=== PATIENT | male | born 1940 | race Caucasian/White ===

== ENCOUNTER 2016-12-24 08:05 | Inpatient (IN) | payer OTHER, MEDICARE ==
[2016-12-24] VITALS (7 sets, daily range): BP systolic 139–164; BP diastolic 58–115
[~2016-12-24] VITALS: Ht 193 cm; Wt 109.3 kg
[~2016-12-24 08:05] MED LIST: BENICAR20 M1 PO; CRESTOR10 M1 PO; LO-DOSE ASPIRIN81 MG PO; OMEPRAZOLE MAGN20 M1 PO; VITAMIN B-121000 MC3 PO
--- NOTE | 2016-12-24 08:14 | NUR ---
PT STATES HE CALLED 911 TODAY BECAUSE HE WAS UNABLE TO AMBULATE D/T NEUROPATHY
--- NOTE | 2016-12-24 08:14 | NUR ---
PT BIBA FROM HOME WITH C/O WEAKNESS, DIARRHEA AND BLOOD IN URINE. STATES HE RECENTLY STARTED ON A PROBIOTIC AND ANOTHER PILL ? NAME A WEEK AGO AND STARTED WITH THE DIARRHEA AFTER. DENIES BLOODY STOOL OR BLACK STOOL. STATES DIARRHEA IS CLEAR FLUID X 3 DAYS. STATES RECENTLY FELL
--- NOTE | 2016-12-24 08:19 | ED GENERAL ADULT ---
History of Present Illness General Chief Complaint: General Adult Stated Complaint: WEAKNESS Source: patient, old records Exam Limitations: no limitations Vital Signs & Intake/Output Vital Signs & Intake/Output Vital Signs Date Time Temp Pulse Resp B/P B/P Pulse O2 O2 Flow FiO2 Mean Ox Delivery Rate 12/24 1933 Room Air 12/24 1800 98.4 83 20 141/95 05/08 1733 98.4 83 20 141/95 94 Room Air / 1528 98.4 93 16 139/86 05/08 1500 98.8 22 94 Room Air / 1352 98.9 100 18 166/90 85 Room Air 05/ 1315 98.2 85 20 158/76 05/08 1314 98.2 85 20 158/76 97 Room Air / 1123 99.0 89 20 157/115 98 Room Air / 1114 89 20 157/115 05/08 0900 99.0 108 24 139/58 05/08 0842 99.0 108 24 139/58 96 Room Air / 0812 97.2 96 20 107/70 98 Room Air Allergies Coded Allergies: NO KNOWN ALLERGIES (12/31/10) Triage Note: PT BIBA FROM HOME WITH C/O WEAKNESS, DIARRHEA AND BLOOD IN URINE. STATES HE RECENTLY STARTED ON A PROBIOTIC AND ANOTHER PILL ? NAME A WEEK AGO AND STARTED WITH THE DIARRHEA AFTER. DENIES BLOODY STOOL OR BLACK STOOL. STATES DIARRHEA IS CLEAR FLUID X 3 DAYS. STATES RECENTLY FELL Triage Nurses Notes Reviewed? yes Duration: intermittent Timing: recent history Injury Environment: home Severity: severe Severity Numbers: 7 HPI: Patient is a 76-year-old male with a past medical history of hypertension, AUTONOMIC NEUROPATHY, CHRONIC DIZZINESS, atrial fibrillation status post pacemaker placement- NOT ON ANTICOAGULATION, hyperlipidemia, alcohol dependency who is brought in by ambulance for concerns of generalized weakness. Patient has been evaluated in the emergency room on occasions for concerns of dizziness where he states that he gets dizzy every day and noted to have hypotension Patient states that he's had multiple episodes of loose watery diarrhea production for the past 10 days no blood no melena noted. Patient does state that he did begin taking a [id number] probiotic for concerns of constipation Patient has been placed with prescription of Bactrim for concerns of UTI prescribed last 4 days ago. Symptoms of diarrhea and weakness and fatigue has significantly worsened however since the Bactrim had been administered. Patient complains of decreased by mouth intake. It is noted that patient had concerns of symptoms of hematuria hence the urinary tract infection was evaluated. It is noted through old that urine culture showed susceptibility to Bactrim. Patient complains of denies abdominal pain and persistent coughing in the past week Denies any chest pain shortness of breath hemoptysis nausea or vomiting Patient did not take any medications for his diarrhea (ALEJANDRO SPICER) Reconcile Medications Aspirin (Lo-Dose Aspirin EC) 81 MG TABLET.DR 1 TAB PO DAILY HEART HEALTH ( Reported) Cyanocobalamin (Vitamin B-12) 1,000 MCG TABLET 1 TAB PO DAILY SUPPLEMENT ( Reported) Lactobacillus Acidophilus (Probiotic) 10 BILLION CELL CAPSULE 1 CAP PO DAILY GI (Reported) Midodrine HCl 2.5 MG TABLET 1 TAB PO TIDAC PRN LOW BLOOD PRESSURE (Reported) Olmesartan Medoxomil (Benicar) 20 MG TABLET 1 TAB PO DAILY HEART HEALTH ( Reported) Omeprazole Magnesium 20 MG CAPSULE.DR 2 CAP PO BID ACID REFLUX (Reported) Rosuvastatin Calcium (Crestor) 10 MG TABLET 1 TAB PO DAILY HEART HEALTH ( Reported) Sulfamethoxazole/Trimethoprim (Sulfamethoxazole-Tmp Ds Tablet) 800 MG-160 MG TABLET 1 TAB PO BID ANTIBIOTIC, INFECTION (Reported) (YESSICA YEN,HILL) Past History Travel History Traveled to [place] past 21 day No Medical History Any Pertinent Medical History? see below for history Neurological: peripheral neuropathy... walks with braces on both ankles. Cardiovascular: AFIB, hypertension, hyperlipidemia Gastrointestinal: GERD Other Medical Hx: hypertension, atrial fibrillation status post pacemaker placement, hyperlipidemia, alcohol dependency Surgical History Surgical History: non-contributory Psychosocial History Who do you live with Spouse Services at Home None What is your primary language Tanzanian Tobacco Use: Quit >30 days ago ETOH Use: occasional use Illicit Drug Use: denies illicit drug use Family History Hx Contributory? No (ALEJANDRO SPICER) Review of Systems Review of Systems Constitutional: Reports: see HPI, malaise, weakness. EENTM: Reports: no symptoms. Respiratory: Reports: no symptoms. Cardiovascular: Reports: no symptoms. GI: Reports: see HPI, abdominal pain. Genitourinary: Reports: see HPI, hematuria. Musculoskeletal: Reports: no symptoms. Skin: Reports: no symptoms. Neurological/Psychological: Reports: no symptoms. Hematologic/Endocrine: Reports: no symptoms. Immunologic/Allergic: Reports: no symptoms. All Other Systems: Reviewed and Negative (ALEJANDRO SPICER) Physical Exam Physical Exam General Appearance: no apparent distress, alert, comfortable Gastrointestinal: normal bowel sounds, MILD TENDERNESS AND DISTENSION NOTED Rectal: normal rectal tone, heme negative stool, BROWN STOOL Comments: Well-developed well-nourished person in no acute distress HEENT: Normal EENT exam, extraocular motion intact, no nystagmus. Pupils equally round and reactive to light and accommodation. Nose is atraumatic. External auditory canal and Tympanic membranes clear. Pharynx normal. No swelling or edema. Neck: Supple, no lymphadenopathy, normal range of motion without pain or tenderness Back: Nontender, no CVA tenderness. Cardiovascular: Regular rate and rhythms no murmurs rubs or gallops, normal JVP Respiratory: Chest nontender. No respiratory distress.breath sounds clear to auscultation bilaterally Extremity: No edema, no calf tenderness to palpation, normal and equal pulses. Neuro: Alert oriented x3, motor sensory normal, cranial nerves II through XII grossly intact. Skin: No appreciable rash on exposed skin, skin is warm and dry. Psych: Mood and affect is normal, memory and judgment is normal. Core Measures ACS in differential dx? No CVA/TIA Diagnosis: No Severe Sepsis Present: No Septic Shock Present: No (ALEJANDRO SPICER) Progress Differential Diagnoses I considered the following diagnoses in my evaluation of the patient: [Pneumonia , sepsis, pyelonephritis,SBO, electrolyte abnormality, dehydration,C.DIFF] Plan of Care: Orders Procedure Date/time Status [id number] VIEWS 12/25 06 Active MAGNESIUM 12/25 06 Active BASIC ELECTROLYTES PLUS BUN&CR 12/25 06 Active Clear Liquid Diet 12/24 D Active MAGNESIUM 12/25 1999 Complete BASIC ELECTROLYTES PLUS BUN&CR 12/25 1999 Complete C.DIFFICILE 12/24 1532 Active Pathway - chart 12/24 1528 Active Heat/Cold Therapy 12/24 1528 Active Saline Lock 12/24 1441 Active Pathway - chart 12/24 1441 Active House Staff 12/24 1441 Active Patient Data 12/24 1337 Active Admit to inpatient 12/24 1226 Active Vital Signs 12/24 1226 Active Code Status 12/24 1226 Active ETHANOL 12/24 0930 Complete BLOOD CULTURE 12/24 0908 Active CIWA 05/08 0907 Active CULTURE,URINE 12/24 906 Active URINALYSIS 12/24 906 Complete LACTIC ACID 12/24 906 Complete Telemetry/Tobacco Drier Operator 12/24 905 Active CULTURE,STOOL 12/24 905 Active C.DIFFICILE 12/24 905 Active TROPONIN LEVEL 12/24 905 Complete MAGNESIUM 12/24 905 Complete LIPASE 12/24 905 Complete COMPREHENSIVE METABOLIC PANEL 12/24 905 Complete CBC WITHOUT DIFFERENTIAL 12/24 905 Complete AMYLASE 12/24 905 Complete Intake & Output 12/25 835 Active EKG 12/25 823 Active TRC EVALUATION (GEN) 12/24 UNK Active VTE Mechanical Prophylaxis 12/24 UNK Active Nursing Misc 12/24 UNK Active CIWA 12/24 UNK Active Current Medications Sig/Gumaro Start time Last Medication Dose Stop Time Status Admin Aspirin Buffered 81 MG DAILY 12/25 1000 AC (Ecotrin) Folic Acid 1 MG DAILY 12/25 1000 AC (Folic Acid) Heparin Sodium 5,000 UNIT Q8 12/24 2200 AC (Porcine) Trimethoprim/ 1 TAB BID 12/24 2200 AC Sulfamethoxazole (Bactrim DS) Atorvastatin Calcium 40 MG 1700 12/24 1700 AC 12/24 (Lipitor) 2001 Acetaminophen 1,000 MG Q6P PRN 12/24 1530 AC (Ofirmev) Ondansetron HCl 4 MG Q6P PRN 12/24 1530 AC (Zofran) Lorazepam 0 Q1P PRN 12/24 1445 AC (Ativan) Midodrine 2.5 MG TIDAC PRN 12/24 1445 AC (Pro-Amatine) Sodium Chloride 1,000 ML Q10H 12/24 1445 AC 12/24 (Normal Saline 0.9%) 12/25 0044 1456 Multivitamins 1 TAB DAILY 12/24 1441 AC 12/24 (Theragran Vitamins) 1456 Thiamine HCl 100 MG DAILY 12/24 1441 AC 12/24 (Vitamin B1) 1456 Laboratory Tests 12/24/16 1955: Anion Gap 8, Estimated GFR 59 L, BUN/Creatinine Ratio 28.3 H, Magnesium 1.9 12/24/16 1207: Lactic Acid Cancelled 12/24/16 1112: Urine Color YEL, Urine Clarity CLEAR, Urine pH 6.0, Ur Specific [place] >= 1.030 , Urine Protein 30 H, Urine Ketones NEG, Urine Nitrite NEG, Urine Bilirubin NEG , Urine Urobilinogen 1.0, Ur Leukocyte Esterase SMALL H, Ur Microscopic SEDIMENT EXAMINED, Urine RBC 50-75 H, Urine WBC 15-25 H, Ur Epithelial Cells RARE, Urine Bacteria FEW H, Hyaline Casts 1-3 H, Urine Mucus MANY H, Urine Hemoglobin MOD H, Urine Glucose NEG 12/24/16 0930: Lactic Acid 0.7 12/24/16 0930: Anion Gap 12, Estimated GFR 54 L, BUN/Creatinine Ratio 30.0 H, Glucose 101 H, Calcium 9.0, Magnesium 1.9, Total Bilirubin 0.7, AST 18, ALT 39, Alkaline Phosphatase 75, Troponin I 0.06, Total Protein 6.5, Albumin 3.5, Globulin 3.0, Albumin/Globulin Ratio 1.2, Amylase 49, Lipase 103, CBC w Diff NO MAN DIFF REQ, RBC 4.22 L, MCV 96.3 H, MCH 31.5 H, RDW 13.8, MPV 7.5, Gran % 77.3 H, Lymphocytes % 12.3 L, Monocytes % 8.9, Eosinophils % 0.9, Basophils % 0.6, Absolute Granulocytes 6.0, Absolute Lymphocytes 1.0 L, Absolute Monocytes 0.7 H, Absolute Eosinophils 0.1, Absolute Basophils 0, PUBS MCHC 32.8 L, Serum Alcohol < 10.0 Microbiology 12/24 1532 STOOL: Clostridium difficile Toxin A & B - COLB 12/24 1112 URINE ROUT: Urine Culture - RECD 12/24 1042 BLOOD: Blood Culture - RECD 12/24 09 BLOOD: Blood Culture - RECD 12/24 905 STOOL: Clostridium difficile Toxin A & B - ORD 12/24 905 STOOL: Stool Culture - ORD Patient currently is resting comfortably no apparent distress. Patient does have concerns of abdominal distention and tenderness and was CT scan showed significant COLON Distention. Surgery was paged. Discussed admission with Dr. LAZO who agrees Discussed patient with Iron Brooks MD which she is aware of admission however he does not express to me any concerns of small bowel obstruction from history of present illness and CT scan evaluation. Discussed admission with house staff STATE THEY WILL OBTAIN GI consult no EKG changes for hypokalemia (MELITON CARPENTER,ALEJANDRO) Diagnostic Imaging: Viewed by Me: CT Scan. Radiology Impression: acute abnormality Initial ED EK BPM MULTIPLE ARTIFACT NOTED ATRIAL FIBRILLATION Comments: PATIENT: YOSSI PERERA PRESENT AGE: 76 PATIENT ACCOUNT NO: [id number] : 39 LOCATION: [facility] ORDERING PHYSICIAN: ALEJANDRO CARPENTER SERVICE DATE: 12/24/16 EXAM TYPE: CAT - CT ABD & PELVIS W/O IV CONTRAS; CT CHEST WO IV CONTRAST EXAMINATION: CT CHEST, ABDOMEN AND PELVIS WITHOUT CONTRAST CLINICAL INFORMATION: Cough and weakness. COMPARISON: Chest radiograph dated 08/12/2009; CT thorax dated 06/06/2009. TECHNIQUE: Multidetector volumetric imaging was performed through the chest, abdomen and pelvis without the administration of oral or intravenous contrast. Sagittal and coronal reformatted images were obtained on the technologist's workstation. Axial MIP volume rendering provided. DLP: 1299.97 mGy-cm. FINDINGS: CHEST: Reverberatory Furnace Operator: The lungs are grossly clear. There are numerous dilated abdominal and pelvic bowel loops. Lungs: There are a few bilateral scattered benign, calcified granulomas. No mass is seen. There is no focal infiltrate or groundglass opacity. There are minimal emphysematous changes towards the apices. There is mild linear scar/subsegmental atelectasis in the anteromedial basal segment of the left lower lobe. The central airways appear patent. Mediastinum: No sizable mediastinal or hilar adenopathy is seen. There is mild aneurysmal dilatation of the ascending thoracic aorta, which measures 4.5 x 4.6 cm (3:30). There is moderate atherosclerotic change of the thoracic aorta and coronary arteries. A pacemaker device is noted. Pericardium/Pleura: There is no significant effusion. No pleural mass or thickening. Chest Wall/Axilla: Unremarkable. ABDOMEN/PELVIS: Liver, Gallbladder, Biliary Tree: The liver is normal in size, shape, and attenuation. No focal hepatic lesion or biliary ductal dilatation is present. The gallbladder is unremarkable with no evidence of radiopaque gallstones, gallbladder wall thickening, or pericholecystic inflammatory changes. Pancreas: Unremarkable. Spleen: Unremarkable. Adrenal Glands: The right adrenal gland is unremarkable. The left adrenal gland contains a 1.7 cm benign, fat-containing adenoma of Hounsfield value 1.5 units precontrast (3:53). Kidneys and Ureters: The kidneys are normal in size, shape, and attenuation. A prominent right renal parapelvic cyst is again seen, similar to 06/06/2009 (2:68). There is superimposed mild right hydronephrosis. At the upper pole of the right kidney, a nonobstructing 3 mm calculus is seen. At the lower pole of the right kidney, there are 7 mm and 7 mm nonobstructing calculi. Within the right renal pelvis anteriorly (3:63), a 1.1 cm calculus is seen. There is no right ureteric calculus. No left urinary calculus or hydronephroureter is seen. At the lower pole of the left kidney, a 1.0 cm low-attenuation cyst is seen of Hounsfield 6.6 units (3:69) No perinephric stranding. Bladder: Unremarkable. Gastrointestinal Tract: There are multiple dilated colonic loops. No pathologic dilatation of small bowel loops is seen. There is gas and stool identified throughout the colon to the level of the sigmoid colon (3:98). There is mild sigmoid colon wall thickening and adjacent fat stranding. No free intraperitoneal air or abscess is seen. No diverticulosis is seen. The vermiform appendix appears normal. Abdominal Wall: There is a diastases rectus. There are tiny fat-containing umbilical and bilateral inguinal hernias. Lymphovascular Structures: Lymph nodes: Normal. Vascular: There is moderate aortoiliac and mesenteric atherosclerotic change. No abdominal aortic aneurysm is seen. Pelvic Viscera: The prostate and seminal vesicles are unremarkable. OSSEOUS STRUCTURES: There is multi-level marked thoracolumbar degenerative change, with an appearance suggesting possible DISH (diffuse idiopathic skeletal hyperostosis). No acute or aggressive osseous abnormality is seen. IMPRESSION: 1. There is significant colonic distention with gas and stool, with possible transition point at the sigmoid. Underlying mucosal lesion is not excluded. This could be more fully evaluated with a barium enema, if clinically indicated. Underlying diverticulitis is not seen. There is no associated pathologic small bowel dilatation, suggesting a competent ileocecal valve. No free intraperitoneal air or abscess is seen. 2. There is mild hydronephrosis superimposed upon a chronic right extrarenal pelvis. There are right renal calculi, and an 11 mm calculus is seen within the right renal pelvis. No right ureterectasis is seen. 3. No left renal calculus or hydronephroureter is seen. 4. A small benign, fat-containing left adrenal adenoma is incidentally noted. 5. There is borderline aneurysmal dilatation of the ascending thoracic aorta. 6. There are minimal emphysematous changes. 7. Skeletal findings suggest possible DISH. DICTATED BY: YOSSI ALVAREZ MD DATE/TIME DICTATED:12/24/161037 CUTTING MACHINE FIXER:CLEMENTINA DATE/TIME TRANSCRIBED:12/24/161037 (ALEJANDRO SPICER) Departure Departure Disposition: STILL A PATIENT Condition: Stable Clinical Impression Primary Impression: Colon distention Secondary Impressions: MARIYA (acute kidney injury), Dehydration, Diarrhea, Hypokalemia, Weakness Referrals: MAKENZIE CLEVELAND MD (PCP/Family) Departure Forms: Customer Survey General Discharge Information Admission Note Spoke With: IFRAH LAZO MD Documentation of Exam: Documentation of any treatments & extenuating circumstances including Concerns Regarding Discharge (functional status, medication knowledge or non-compliance, living conditions, etc.) that warrant an admission rather than observation: [ Discussed patient with Dr. LAZO who agrees with general medicine admission for concerns of a KI hypokalemia and dehydration weakness dehydration and concerns of colonic distention. Patient requires IV fluid resuscitation, repeat labs, potassium replenishment, surgery consultation. Outpatient treatment at this time would be medically harmful] (ALEJANDRO SPICER) PA/CLIENT EVALUATOR Co-Sign Statement Statement: ED Attending supervision documentation- [X] I saw and evaluated the patient. I have also reviewed all the pertinent lab results and diagnostic results. I agree with the findings and the plan of care as documented in the PA's/CLIENT EVALUATOR's documentation. [X] I have reviewed the ED Record and agree with the PA's/CLIENT EVALUATOR's documentation. [] Additions or exceptions (if any) to the PAs/CLIENT EVALUATOR's note and plan are summarized below: [] (YESSICA YEN,HILL) Critical Care Note Critical Care Note Critical Care Time: non-applicable (ALEJANDRO SPICER)
[2016-12-24 09:37] LABS: ABSOLUTE BASOPHIL COUNT 0 /CUMM (0.0-0.2); ABSOLUTE EOSINOPHIL COUNT 0.1 /CUMM (0.0-0.7); ABSOLUTE MONOCYTE COUNT 0.7 /CUMM (0.10-0.60); BASOPHIL % 0.6 % (0.0-2.0); EOSINOPHIL % 0.9 % (0-5); GRANULOCYTE % 77.3 % (42.2-75.2); HEMATOCRIT 40.7 % (42-52); MEAN CORPUSCULAR HGB 31.5 PG (27.0-31.0); MEAN CORPUSCULAR HGB CONC 32.8 G/DL (33.0-37.0); MEAN CORPUSCULAR VOLUME 96.3 FL (80.0-94.0); MEAN PLATELET VOLUME 7.5 FL (7.4-10.4); PLATELET COUNT 147 /CUMM (130-400); RBC DISTRIBUTION WIDTH 13.8 % (11.5-14.5); RED BLOOD CELL CT 4.22 /CUMM (4.70-6.10); WHITE BLOOD CELL COUNT 7.8 /CUMM (4.8-10.8)
[2016-12-24] MEDS ORDERED: SULFAMETHOXAZO1 EAC1 PO (09:45)
[2016-12-24] MEDS ORDERED: PROBIOTIC1 EACH PO (09:45)
--- NOTE | 2016-12-24 09:57 | NUR ---
NS INFUSING, PT TO CT SCAN. OF PT AT BEDSIDE
--- NOTE | 2016-12-24 10:27 | NUR ---
PT MEDICATED WITH 40 MEQ k+ PO
--- NOTE | 2016-12-24 11:05 | CT SCAN REPORT ---
EXAMINATION: CT CHEST, ABDOMEN AND PELVIS WITHOUT CONTRAST CLINICAL INFORMATION: Cough and weakness. COMPARISON: Chest radiograph dated 08/12/2009; CT thorax dated 06/06/2009. TECHNIQUE: Multidetector volumetric imaging was performed through the chest, abdomen and pelvis without the administration of oral or intravenous contrast. Sagittal and coronal reformatted images were obtained on the technologist's workstation. Axial MIP volume rendering provided. DLP: 1299.97 mGy-cm. FINDINGS: CHEST: Heating Worker: The lungs are grossly clear. There are numerous dilated abdominal and pelvic bowel loops. Lungs: There are a few bilateral scattered benign, calcified granulomas. No mass is seen. There is no focal infiltrate or groundglass opacity. There are minimal emphysematous changes towards the apices. There is mild linear scar/subsegmental atelectasis in the anteromedial basal segment of the left lower lobe. The central airways appear patent. Mediastinum: No sizable mediastinal or hilar adenopathy is seen. There is mild aneurysmal dilatation of the ascending thoracic aorta, which measures 4.5 x 4.6 cm (3:30). There is moderate atherosclerotic change of the thoracic aorta and coronary arteries. A pacemaker device is noted. Pericardium/Pleura: There is no significant effusion. No pleural mass or thickening. Chest Wall/Axilla: Unremarkable. ABDOMEN/PELVIS: Liver, Gallbladder, Biliary Tree: The liver is normal in size, shape, and attenuation. No focal hepatic lesion or biliary ductal dilatation is present. The gallbladder is unremarkable with no evidence of radiopaque gallstones, gallbladder wall thickening, or pericholecystic inflammatory changes. Pancreas: Unremarkable. Spleen: Unremarkable. Adrenal Glands: The right adrenal gland is unremarkable. The left adrenal gland contains a 1.7 cm benign, fat-containing adenoma of Hounsfield value 1.5 units precontrast (3:53). Kidneys and Ureters: The kidneys are normal in size, shape, and attenuation. A prominent right renal parapelvic cyst is again seen, similar to 06/06/2009 (2:68). There is superimposed mild right hydronephrosis. At the upper pole of the right kidney, a nonobstructing 3 mm calculus is seen. At the lower pole of the right kidney, there are 7 mm and 7 mm nonobstructing calculi. Within the right renal pelvis anteriorly (3:63), a 1.1 cm calculus is seen. There is no right ureteric calculus. No left urinary calculus or hydronephroureter is seen. At the lower pole of the left kidney, a 1.0 cm low-attenuation cyst is seen of Hounsfield 6.6 units (3:69) No perinephric stranding. Bladder: Unremarkable. Gastrointestinal Tract: There are multiple dilated colonic loops. No pathologic dilatation of small bowel loops is seen. There is gas and stool identified throughout the colon to the level of the sigmoid colon (3:98). There is mild sigmoid colon wall thickening and adjacent fat stranding. No free intraperitoneal air or abscess is seen. No diverticulosis is seen. The vermiform appendix appears normal. Abdominal Wall: There is a diastases rectus. There are tiny fat-containing umbilical and bilateral inguinal hernias. Lymphovascular Structures: Lymph nodes: Normal. Vascular: There is moderate aortoiliac and mesenteric atherosclerotic change. No abdominal aortic aneurysm is seen. Pelvic Viscera: The prostate and seminal vesicles are unremarkable. OSSEOUS STRUCTURES: There is multi-level marked thoracolumbar degenerative change, with an appearance suggesting possible DISH (diffuse idiopathic skeletal hyperostosis). No acute or aggressive osseous abnormality is seen. IMPRESSION: 1. There is significant colonic distention with gas and stool, with possible transition point at the sigmoid. Underlying mucosal lesion is not excluded. This could be more fully evaluated with a barium enema, if clinically indicated. Underlying diverticulitis is not seen. There is no associated pathologic small bowel dilatation, suggesting a competent ileocecal valve. No free intraperitoneal air or abscess is seen. 2. There is mild hydronephrosis superimposed upon a chronic right extrarenal pelvis. There are right renal calculi, and an 11 mm calculus is seen within the right renal pelvis. No right ureterectasis is seen. 3. No left renal calculus or hydronephroureter is seen. 4. A small benign, fat-containing left adrenal adenoma is incidentally noted. 5. There is borderline aneurysmal dilatation of the ascending thoracic aorta. 6. There are minimal emphysematous changes. 7. Skeletal findings suggest possible DISH.
--- NOTE | 2016-12-24 11:15 | NUR ---
PT PLACED ON HOSPITAL BED D/T HEIGHT OF PT
--- NOTE | 2016-12-24 12:23 | NUR ---
PT MEDICATED DOCUMENTED IN [facility]
[2016-12-24] MEDS ORDERED: MIDODRINE HCL2.5 M1 PO (14:36)
--- NOTE | 2016-12-24 14:52 | History & Physical ---
JOHN DUQUE MD 12/24/16 8372: General Information and HPI History of Present Illness: 76 year old man with significant past medical history of autonomic neuropathy seen for evaluation of diarrhea, bloating, cough, and urinary symptoms. Patient reports that since December 17 he has had profuse watery/mucous diarrhea that has slowly progressed to dark brown loose stools. He notes that these episodes are small volume and occasionally result in fecal incontinence. He denies having ever had any bloody bowel movements. He reports that he is normally constipated at baseline for which he started taking a probiotic 10 days prior to evaluation. He saw his PCP Dr. Gonzalez this past for evaluation of these symptoms in addition to urinary pain/burning/incontinence/bloody urine and nonproductive cough. He was prescribed a course of Bactrim and instructed to take over the counter cough suppressants. Presenty he reports feeling dizzy and weak with a persistent nonproductive cough and associated shortness of breath with his coughing episodes. He admits feeling feverish at home. He also admits to persistent urinary symptoms and abdominal discomfort/diarrhea. Otherwise he denies any blurred/double vision, worsening lightheadedness/ dizziness, headache, chills, chest pain, palpitations, nausea, numbness/ tingling. PMHx - Autonomic Neuropathy, Atrial Fibrillation s/p Pacemaker not on anticoagulation, EtOH Dependence, Hypertension, Hyperlipidemia, GERD Social Hx - Patient quit smoking January 18, 1995 and smoked 2ppd since he was in grade school, he drinks 2 vodka drinks per day with occasional shots, he lives at home with his and ambulates with assistance of a walker for short distances Allergies/Medications Allergies: Coded Allergies: NO KNOWN ALLERGIES (12/31/10) Home Med list Aspirin (Lo-Dose Aspirin EC) 81 MG TABLET.DR 1 TAB PO DAILY HEART HEALTH ( Reported) Cyanocobalamin (Vitamin B-12) 1,000 MCG TABLET 1 TAB PO DAILY SUPPLEMENT ( Reported) Lactobacillus Acidophilus (Probiotic) 10 BILLION CELL CAPSULE 1 CAP PO DAILY GI (Reported) Midodrine HCl 2.5 MG TABLET 1 TAB PO TIDAC PRN LOW BLOOD PRESSURE (Reported) Olmesartan Medoxomil (Benicar) 20 MG TABLET 1 TAB PO DAILY HEART HEALTH ( Reported) Omeprazole Magnesium 20 MG CAPSULE.DR 2 CAP PO BID ACID REFLUX (Reported) Rosuvastatin Calcium (Crestor) 10 MG TABLET 1 TAB PO DAILY HEART HEALTH ( Reported) Sulfamethoxazole/Trimethoprim (Sulfamethoxazole-Tmp Ds Tablet) 800 MG-160 MG TABLET 1 TAB PO BID ANTIBIOTIC, INFECTION (Reported) Past History Travel History Traveled to [place] past 21 day No Medical History Neurological: peripheral neuropathy... walks with braces on both ankles. Cardiovascular: AFIB, hypertension, hyperlipidemia Gastrointestinal: GERD Other Medical Hx: hypertension, atrial fibrillation status post pacemaker placement, hyperlipidemia, alcohol dependency Surgical History Surgical History: non-contributory Past Family/Social History Psychosocial History Where do you live? Home Who Do You Live With? spouse Services at Home: None Smoking Status: Former Smoker ETOH Use: heavy use Illicit Drug Use: denies illicit drug use Review of Systems Review of Systems Constitutional: Reports: see HPI. Exam & Diagnostic Data Last 24 Hrs of Vital Signs/I&O Vital Signs Date Time Temp Pulse Resp B/P B/P Pulse O2 O2 Flow FiO2 Mean Ox Delivery Rate 12/24 1500 98.8 22 94 Room Air 12/24 1352 98.9 100 18 166/90 85 Room Air / 1315 98.2 85 20 158/76 05/08 1314 98.2 85 20 158/76 97 Room Air / 1123 99.0 89 20 157/115 98 Room Air /08 1114 89 20 157/115 05/08 0900 99.0 108 24 139/58 05/08 0842 99.0 108 24 139/58 96 Room Air 05/08 0812 97.2 96 20 107/70 98 Room Air Intake & Output / 1600 05/08 0800 05/08 0000 Intake Total Output Total 350 Balance -350 Output, Urine 350 Patient 108.862 kg Weight Physical Exam General Appearance Alert, Oriented X3, Cooperative, No Acute Distress HEENT Atraumatic, PERRLA, EOMI, Bloody teeth Neck Supple Cardiovascular Normal S1, Normal S2, No Murmurs, Irregular rhythm Lungs Clear to Auscultation, Normal Air Movement Abdomen Normal Bowel Sounds, No Hepatospenomegaly, Tense, distended, mildly tender abdomen, bowel sounds intact, no CVA tenderness Neurological Normal Speech, Normal Tone, Cranial Nerves 3-12 NL Extremities No Clubbing, No Cyanosis, No Edema, Normal Pulses, No Tenderness/ Swelling Vascular Normal Pulses, Pulses Symmetrical Last 24 Hrs of Labs/Milton: Laboratory Tests 12/24/16 1207: Lactic Acid Cancelled 12/24/16 111: Urine Color YEL, Urine Clarity CLEAR, Urine pH 6.0, Ur Specific Alpine >= 1.030 , Urine Protein 30 H, Urine Ketones NEG, Urine Nitrite NEG, Urine Bilirubin NEG , Urine Urobilinogen 1.0, Ur Leukocyte Esterase SMALL H, Ur Microscopic SEDIMENT EXAMINED, Urine RBC 50-75 H, Urine WBC 15-25 H, Ur Epithelial Cells RARE, Urine Bacteria FEW H, Hyaline Casts 1-3 H, Urine Mucus MANY H, Urine Hemoglobin MOD H, Urine Glucose NEG 12/24/16929: Lactic Acid 0.7 12/24/16929: Anion Gap 12, Estimated GFR 54 L, BUN/Creatinine Ratio 30.0 H, Glucose 101 H, Calcium 9.0, Magnesium 1.9, Total Bilirubin 0.7, AST 18, ALT 39, Alkaline Phosphatase 75, Troponin I 0.06, Total Protein 6.5, Albumin 3.5, Globulin 3.0, Albumin/Globulin Ratio 1.2, Amylase 49, Lipase 103, CBC w Diff NO MAN DIFF REQ, RBC 4.22 L, MCV 96.3 H, MCH 31.5 H, RDW 13.8, MPV 7.5, Gran % 77.3 H, Lymphocytes % 12.3 L, Monocytes % 8.9, Eosinophils % 0.9, Basophils % 0.6, Absolute Granulocytes 6.0, Absolute Lymphocytes 1.0 L, Absolute Monocytes 0.7 H, Absolute Eosinophils 0.1, Absolute Basophils 0, PUBS MCHC 32.8 L, Serum Alcohol < 10.0 Microbiology 12/25 1111 URINE ROUT: Urine Culture - RECD 12/24 104 BLOOD: Blood Culture - RECD 12/24 924 BLOOD: Blood Culture - RECD 12/24 905 STOOL: Clostridium difficile Toxin A & B - ORD 12/24 905 STOOL: Stool Culture - ORD Diagnostic Data Other Results SERVICE DATE: 12/24/16-929 EXAM TYPE: CAT - CT ABD & PELVIS W/O IV CONTRAS; CT CHEST WO IV CONTRAST IMPRESSION: 1. There is significant colonic distention with gas and stool, with possible transition point at the sigmoid. Underlying mucosal lesion is not excluded. This could be more fully evaluated with a barium enema, if clinically indicated. Underlying diverticulitis is not seen. There is no associated pathologic small bowel dilatation, suggesting a competent ileocecal valve. No free intraperitoneal air or abscess is seen. 2. There is mild hydronephrosis superimposed upon a chronic right extrarenal pelvis. There are right renal calculi, and an 11 mm calculus is seen within the right renal pelvis. No right ureterectasis is seen. 3. No left renal calculus or hydronephroureter is seen. 4. A small benign, fat-containing left adrenal adenoma is incidentally noted. 5. There is borderline aneurysmal dilatation of the ascending thoracic aorta. 6. There are minimal emphysematous changes. 7. Skeletal findings suggest possible DISH. Assessment/Plan Assessment: 76 year old man with multiple medical problems seen for evaluation of diarrhea, urinary frequency/urgency/burning/hematuria and new non productive cough. Patient is reportedly normally constipated at baseline for which he started a probiotic and subsequently developed a profuse watery diarrhea. He was identified to have a urinary tract infection by his PCP for which he was provided Bactrim. Otherwise he also admits to a cough of unclear signficance, but is of great distress to the patient. ED Course: -Vitals: Temp 97.2-99.0, HR 85-108, RR 20-24, BP 107-158/58-115, O2 96-98 -Significant Labs: WBC 7.8, Hgb/Hct 13.3/40.7, Plt 147, Na 144, K 2.9, BUN/Cr 39 /1.3, LFTs WNL, Troponin 0.06 -Studies: CT Chest/Abdomen/Pelvis- colon distention with gas/stool, mild right sided hydro, fat containing left adrenal adenoma Constipation / Diarrhea / Autonomic Neuropathy Patient with history of autonomic neuropathy followed by neurologist Dr. Cali and baseline constipation seen for evaluation of profuse watery diarrhea. -General Medicine -Clear Liquid Diet -NS @ 100mL/hr -Zofran -GI consult -F/U Stool culture, C. Diff History of Atrial Fibrillation s/p Pacemaker EKG demonstrated Atrial Fibrillation upon initial evaluation. Patient of Dr. Deep Snell. -Aspirin 81mg PO Daily Urinary Tract Infection Patient was recently treated for urinary tract infection by his PCP this past with Bactrim. He received an additional dose of Bactrim in the ED for a positive urinalysis. -Bactrim DS 1 TAB PO BID EtOH Dependence Patient admits to drinking 1-2 vodka drinks with shots daily. -CIWA -Ativan PRN per CIWA -B12/Thiamine/Folate/MV Hypertension-Benicar on hold Hyperlipidemia-Atorvastatin 40mg PO Daily GERD-Omeprazole on hold Pain Plan-Acetaminophen Diet-Clear Liquid Diet DVT PPx- Subcutaneous Heparin Code Status- FULL CODE As Ranked By This Provider Problem List: 1. Diarrhea Core Measures/Miscellaneous Acute Coronary Syndrome ACS Diagnosis: No Cerebrovascular Accident CVA/TIA Diagnosis: No Congestive Heart Failure CHF Diagnosis: No Venous Thromboembolism VTE Risk Factors: Acute medical illness, Age > 40 No [facility] VTE prophylaxis d/t: No contraindications No VTE Pharm Prophylaxis d/t: No contraindications VTE Diagnosis: No VTE Type: NONE VTE Confirmed by (Test): NONE Severe Sepsis Severe Sepsis Present: No Septic Shock Septic Shock Present: No Miscellaneous Documentation Attending Case Discussed With: SHREYAS RIVAS M.D Primary Care Physician: CRISTOFER YENMAKENZIE Patient sees these Specialists Dr. Channing Cali Level of Patient Care: General Medicine Consults Needed: Consulting Specialty: Gastroenterology ALBINO YEN,[facility] 12/24/16 1529: Resident Review Statement Resident Statement: examined this patient, discussed with commercial internship, agreed with commercial internship, discussed with family, reviewed EMR data (avail), discussed with nursing , discussed with case mgmt, reviewed images, amended to note Other Findings: Adolfo is a 76-year-old man with a medical history of autonomic dysfunction, peripheral neuropathy, atrial fibrillation (not on anticoagulation) w/PPM, hypertension, dyslipidemia, GERD, alcohol abuse, multiple episodes of pneumonia, coccygeal decubitus ulcer in the past, leading bone lesions to the ribs, left adrenal nodule of 1.7 cm. Presents emergency department with chief complaint diarrhea. Patient began taking probiotics proximally 10 days ago for constipation, now he's had diarrhea for approximately 8 days denies blood melena. Additionally was diagnosed with a urinary tract infection on she's with Bactrim, today is day 5 of antibiotics. There is significant colonic distention with gas and stool, with possible transition point at the sigmoid. Underlying mucosal lesion is not excluded. This could be more fully evaluated with a barium enema, if clinically indicated. Underlying diverticulitis is not seen. There is no associated pathologic small bowel dilatation, suggesting a competent ileocecal valve. No free intraperitoneal air or abscess is seen. There is mild hydronephrosis superimposed upon a chronic right extrarenal pelvis. There are right renal calculi, and an 11 mm calculus is seen within the right renal pelvis. No right ureterectasis is seen. No left renal calculus or hydronephroureter is seen. A small benign, fat-containing left adrenal adenoma is incidentally noted. There is borderline aneurysmal dilatation of the ascending thoracic aorta. There are minimal emphysematous changes. Skeletal findings suggest possible DISH. The patient is being admitted for significant colonic distention with gas and stool secondary to constipation perhaps due to underlying autonomic nervous system dysfunction. There is no signs of obstruction, given the patient is able to pass flatus and liquid stool. Additionally, this patient drinks daily. Hard liquor. However in recent days he said he tried to wean himself off. No history of withdrawal or withdrawal-related seizures. - Problems - Constipation and fecal impaction ANS dysfunction MARIYA Hypokalemia UTI Peripheral neuropathy ETOH abuse Afib w/ ?PPM Hypertension Dyslipidemia L. Adrenal adenoma ? Possible DISH - Plan - Clear liquid diet as tolerated Gi consultation NS @ 100c/hr x L Supportive tx w/ zofran, tylenol 1g iv q6-8 prn Replete electrolytes Cont. midodrine pre-mail Consider Cardiology evaluation Continue Bactrim DS bid for total 7 days course Repeat BMP Mg in am Ativan per CIWA, B12/folate/thiamine/MVI Hold Benicar while mariya Continue statin DVT PPX ALPS,Heparin FULL code ROB YEN,SHREYAS 12/24/16 2225: Attending MD Review Statement Attending Statement Attending MD Statement: examined this patient, discuss w/resident/PA/AGER TENDER, agreed w/resident/PA/AGER TENDER, discussed with family, reviewed EMR data (avail), discussed with nursing, amended to note Attending Assessment/Plan: Patient seen and examined. Resting comfortably not in any acute distress. Family present at bedside. He is afebrile hemodynamically stable. On examination lungs are clear bilaterally. Abdomen is markedly distended but soft and nontender with normal bowel sounds. He has trace peripheral edema. Recommendations: -Admit to the inpatient general medical service. -Supplement potassium levels orally and repeat levels. -Case discussed with the gastroenterology service. Rectal tube placement for bowel decompression.
--- NOTE | 2016-12-24 15:40 | NUR ---
PT NOTED TO BE INCONTINENT OF STOOL. STEPHEN-CARE GIVEN AND INCONTINENT PAD CHANGED. PT DENIES PAIN AT THSI TIME, OFFERS NO COMPLAINTS, VSS.
--- NOTE | 2016-12-24 16:49 | Event Note ---
Event Note Event Note: Discussed case over telephonic conversation with Dr. Kike Wu who advised insertion of rectal tube, flush, and then suction tonight; followed by repeating multiview abdominal XR tomorrow. Plan of Care has been discussed with BRITANY Guthrie - the nurse taking care of the patient in the ER, as well as Cortes the charge nurse on 2N.
--- NOTE | 2016-12-24 17:30 | NUR ---
repositioned for comfort
--- NOTE | 2016-12-24 17:47 | NUR ---
THIS RN SPOKE WITH MD MACKEY WHO WWANTS RECTAL TUBE INSERTED AND HOOKED UP TO INTERMITTENT SUCTION OVERNIGHT.
--- NOTE | 2016-12-24 18:03 | NUR ---
md whatley to come to dept to dio pt's questions regarding rectal tube
--- NOTE | 2016-12-24 18:20 | NUR ---
MD STEVENSONG AT BEDSIDE TO DISCUSS RECTAL TUBE PLACEMENT
--- NOTE | 2016-12-24 19:36 | NUR ---
PT BED ASSIGNMENT 235-2
--- NOTE | 2016-12-24 19:46 | NUR ---
REPORT TO NGUYEN GARG
--- NOTE | 2016-12-24 19:58 | NUR ---
SST SENT TO LAB
--- NOTE | 2016-12-24 20:02 | NUR ---
CRISSYRN ON 2NA SPOKE WITH DIRECTOR OF MARKETING AND PROMOTIONS ROB ON 2NA. RECTAL TUBE TO BE INSERTED WHEN PT GETS TO FLOOR.
[2016-12-25] VITALS: BP 164/90
[2016-12-25 02:00] VITALS: BP 164/90
--- NOTE | 2016-12-25 03:19 | NUR ---
LATE ENTRY: PT ARRIVED TO FLOOR AT 2039 VIA STRETCHER. PT A/C, RA, NONPRODUCTIVE COUGH, RECTAL TUBE PLACED TO GRAVITY, THEN SUCTION MACHINE ARRIVED TO FLOOR AND WAS HOOKED UP TO LOW SUCTION. PT DENIES PAIN. OFFERS NO COMPLAINTS. WILL MONITOR.
[2016-12-25 04:00] VITALS: BP 164/90
[2016-12-25 06:00] VITALS: BP 164/90
--- NOTE | 2016-12-25 06:51 | PN- Housestaff ---
JESSICA YEN,BHAVESH 12/25/16 0651: Subjective Follow-up For: Chronic constipation secondary to autonomic neuropathy Subjective: I saw and examined the patient today morning at bedside and she had many concerns Overnight patient reports difficulty slepping due to excessive cough. The rectal suction placed didnt help much. Patients is concerned about previous experience of having ulcers an erosions in the rectal mucosa secondary to suction - resulted in lenghthy recovery. also had questions regarding holding olmesartan. All her questions are answered at bedside. Review of Systems Constitutional: Reports: see HPI. Comments: ROS negative except abdominal pain. Objective Last 24 Hrs of Vital Signs/I&O Vital Signs Date Time Temp Pulse Resp B/P B/P Pulse O2 O2 Flow FiO2 Mean Ox Delivery Rate 12/25 0600 98.1 94 18 164/90 / 0400 98.1 94 18 164/90 / 0200 98.1 94 18 164/90 /09 0000 98.1 94 18 164/90 05/08 2251 98.1 94 22 164/90 94 Room Air 05/08 2200 98.1 94 18 164/90 05/08 1933 Room Air 05/08 1800 98.4 83 20 141/95 05/08 1733 98.4 83 20 141/95 94 Room Air 05/08 1528 98.4 93 16 139/86 05/08 1500 98.8 22 94 Room Air 05/08 1352 98.9 100 18 166/90 85 Room Air 05/08 1315 98.2 85 20 158/76 05/08 1314 98.2 85 20 158/76 97 Room Air 05/08 1123 99.0 89 20 157/115 98 Room Air 05/08 1114 89 20 157/115 05/08 0900 99.0 108 24 139/58 05/08 0842 99.0 108 24 139/58 96 Room Air 05/08 0812 97.2 96 20 107/70 98 Room Air Intake & Output / 0800 05/09 0000 05/08 1600 Intake Total 100 50 Output Total 200 100 350 Balance -100 -50 -350 Intake, IV 100 Intake, Oral 50 Output, Urine 200 100 350 Patient 109.769 kg 108.862 kg Weight Weight Reported by Patient Measurement Method Physical Exam General Appearance: Alert, Oriented X3, Cooperative Skin: No Rashes HEENT: Atraumatic, PERRLA Neck: Supple Cardiovascular: Normal S1, Normal S2 Lungs: Normal Air Movement Abdomen: Normal Bowel Sounds, distended Neurological: Normal Speech, Normal Tone, Sensation Intact Extremities: No Clubbing, No Cyanosis, edema present Vascular: Pulses Symmetrical Current Medications: Current Medications Sig/Gumaro Start time Last Medication Dose Route Stop Time Status Admin Acetaminophen 1,000 MG Q6P PRN 12/24 1530 AC IV Aspirin Buffered 81 MG DAILY 12/25 1000 AC 12/25 PO 1008 Atorvastatin Calcium 40 MG 1700 12/24 1700 AC 12/25 PO 1707 Benzonatate 100 MG TID 12/25 1000 AC 12/25 PO 2138 Folic Acid 1 MG DAILY 12/25 1000 AC 12/25 PO 1008 Heparin Sodium 5,000 UNIT Q8 12/24 220 AC 12/25 (Porcine) SC 2138 Lorazepam 0 Q1P PRN 12/24 1445 AC IV Losartan Potassium 50 MG DAILY 12/25 1056 AC 12/25 PO 1339 Midodrine 2.5 MG TIDAC PRN 12/24 1445 AC PO Multivitamins 1 TAB DAILY 12/24 1441 AC 12/25 PO 1008 Ondansetron HCl 4 MG Q6P PRN 12/24 1530 AC IV Patient Medication 1 ED .STK-MED ONE 12/25 1352 DC Teaching ED 12/25 1353 Potassium Chloride 40 MEQ ONCE ONE 12/25 1800 DC 12/25 PO 12/25 1801 1707 Potassium Chloride 40 MEQ ONCE ONE 12/25 1000 DC / PO 12/25 1001 1101 Potassium Chloride 40 MEQ ONCE ONE 12/25 0830 DC 12/25 PO 12/25 0831 1008 Potassium Chloride 10 MEQ ONCE ONE 12/25 0130 DC 12/25 IV 12/25 0131 0226 Sodium Chloride 1,000 ML Q10H 12/24 1445 DC / IV 12/25 0044 1456 Thiamine HCl 100 MG DAILY 12/24 1441 AC 12/25 PO 1008 Trimethoprim/ 1 TAB BID 12/25 2199 AC 12/25 Sulfamethoxazole PO 2138 Trimethoprim/ 1 TAB BID 12/24 2200 DC 12/25 Sulfamethoxazole PO 1008 Last 24 Hrs of Lab/[place]ilton Results Last 24 Hrs of Labs/Mics: Laboratory Tests 12/25/16 0655: Anion Gap 8, Estimated GFR > 60, BUN/Creatinine Ratio 25.5 H, Magnesium 1.8 Assessment/Plan Assessment: 76 year old man with extensive PMH admitted for evaluation of diarrhea, urinary frequency/urgency/burning/hematuria and dry cough. Patient is reportedly normally constipated at baseline for which he started a probiotic and subsequently developed a profuse watery diarrhea. He was identified to have a urinary tract infection by his PCP for which he was provided Bactrim. Otherwise he also admits to a cough of unclear signficance, but is of great distress to the patient. He is not very functional at baseline. ED Course: VS Temp 97.2-99.0, HR 85-108, RR 20-24, BP 107-158/58-115, O2 96-98 Labs: WBC 7.8, Hgb/Hct 13.3/40.7, Plt 147, Na 144, K 2.9, BUN/Cr 39/1.3, LFTs WNL, Troponin 0.[address] Chest/Abdomen/Pelvis colon distention with gas/stool, mild right sided hydro, fat containing left adrenal adenoma Constipation secondary to Autonomic Neuropathy Patient with history of autonomic neuropathy followed by neurologist Dr. Cali and baseline constipation seen for evaluation of profuse watery diarrhea. * Urine and blood cultures are sent * Stool studies need to be sent. * Rectal tube with suction placed without any significant improvement in Xray today. * GI consulted - appreciate their recommendations. Atrial Fibrillation s/p Pacemaker EKG redemonstrated Atrial Fibrillation upon initial evaluation. Patient of Dr. Deep Snell. * Aspirin 81mg PO Daily Recent Urinary Tract Infection Patient was recently treated for urinary tract infection by his PCP this past with Bactrim. He received an additional dose of Bactrim in the ED for a positive urinalysis. * Bactrim DS 1 TAB PO BID EtOH Dependence Patient admits to drinking 1-2 vodka drinks with shots daily. * CIWA between 1-4 * Ativan PRN per CIWA - can be discontinued * B12/Thiamine/Folate/MV Significant Hypokalemia * Admitted with K of 2.9 * Today 3.1 -- repleted aggressively with Klor * Repeat BEP tomorrow. Dry cough - worse with eating * Underwent swallow evaluation followed by barium swallow for dry cough - started on chopped, nectar thick liquids. Labile Blood pressure - On midodrine 2.5mg TID as needed -- Autonomic neuropathy. Hypertension: Benicar restarted as Cr back to baseline. Hyperlipidemia:Atorvastatin 40mg PO Daily GERD:Omeprazole on hold Pain Plan-Acetaminophen Diet-Clear Liquid Diet DVT PPx- Subcutaneous Heparin Code Status- FULL CODE Problem List: 1. Dehydration 2. Hypokalemia 3. Diarrhea 4. Autonomic neuropathy Pain Ratin Pain Location: abdominal pain Pain Goal: Pain 4 or less Pain Plan: tylenol prn Tomorrow's Labs & Rationales: BEP to monitor lytes in the setting of hypokalemia Consulting Request: Consulting Specialty: Gastroenterology ROB YEN,SHREYAS 12/25/16 1620: Attending MD Review Statement Attending Statement Attending MD Statement: examined this patient, discuss w/resident/PA/DURABLE MEDICAL EQUIPMENT TECHNICIAN, agreed w/resident/PA/DURABLE MEDICAL EQUIPMENT TECHNICIAN, discussed with family, reviewed EMR data (avail), discussed with nursing, discussed with case mgmt, amended to note Attending Assessment/Plan: Patient seen and examined. Lying in bed. Not in any acute distress. reports that he has difficulty swallowing meals. Swallow evaluation was done today and was found to be aspirating thin liquids. Complains of abdominal discomfort. On examination abdomen is slightly less distended. It is soft and nontender. Bowel sounds are present. Repeat abdominal x-ray shows ongoing gaseous distention. Recommendations: -Awaiting evaluation by the gastroenterology service. -Keep rectal tube in place for now with low intermittent suction. -Supplement potassium orally. Repeat levels in the morning. -Follow recommendations of the speech pathologist.
[2016-12-25 07:38] VITALS: BP 152/80
--- NOTE | 2016-12-25 13:59 | NUR ---
PT LEAVING FLOOR AT THIS TIME FOR XRAY AND MODIFIED BARIUM SWALLOW.
[2016-12-25 14:19] VITALS: BP 120/70
--- NOTE | 2016-12-25 14:27 | PN- Student ---
Subjective Subjective: Patient was seen and examined this morning. He was accompanied by his at bedside and she believes her is feeling warm and possibly febrile. Patient reports feeling "crappy" about his health and the way he is being treated. Overnight, patient complains of "extreme urinary incontinence" and mild abdominal pain under his "ribcage"; coughing has been under control. seems unhappy with the care her is receiving during this admission. She is concerned that her looks "out of it" and is not getting around-the- clock care. Patient says he had some jello and chicken broth for dinner the night before but nothing for breakfast this morning. Patient otherwise denies numbness, tingling, headache, chest pain, shortness of breath, palpitations, vomiting. Objective Objective: Vital Signs Date Time Temp Pulse Resp B/P B/P Pulse O2 O2 Flow FiO2 Mean Ox Delivery Rate 12/25 1339 89 152/80 12/25 1142 Room Air Room Air 12/25 1112 Room Air Room Air 12/25 0738 97.9 89 21 152/80 93 Room Air 12/25 0600 98.1 94 18 164/90 12/25 0400 98.1 94 18 164/90 12/25 0200 98.1 94 18 164/90 / 0000 98.1 94 18 164/90 08 2251 98.1 94 22 164/90 94 Room Air 12/24 2200 98.1 94 18 164/90 08 1933 Room Air 12/24 1800 98.4 83 20 141/95 /08 1733 98.4 83 20 141/95 94 Room Air 12/24 1528 98.4 93 16 139/86 /08 1500 98.8 22 94 Room Air Intake & Output 12/25 1600 12/25 0800 12/25 0000 Intake Total 100 50 Output Total 650 200 100 Balance -650 -100 -50 Intake, IV 100 Intake, Oral 50 Output, Urine 650 200 100 Patient 242 lb Weight Weight Reported by Patient Measurement Method Physical Exam General- well-nourished, ill-appearing elderly male in no acute distress Neck- Supple Cardio- Normal S1 & S2 with, irregular rhythm Respiratory- CTA bilaterally Abdomen- Normal/high-pitched bowel sounds, tender, mildly-distended abdomen - Fecal tube in place EXAM TYPE: CAT - CT ABD & PELVIS W/O IV CONTRAS; CT CHEST WO IV CONTRAST 1. There is significant colonic distention with gas and stool, with possible transition point at the sigmoid. Underlying mucosal lesion is not excluded. This could be more fully evaluated with a barium enema, if clinically indicated. Underlying diverticulitis is not seen. There is no associated pathologic small bowel dilatation, suggesting a competent ileocecal valve. No free intraperitoneal air or abscess is seen. 2. There is mild hydronephrosis superimposed upon a chronic right extrarenal pelvis. There are right renal calculi, and an 11 mm calculus is seen within the right renal pelvis. No right ureterectasis is seen. 3. No left renal calculus or hydronephroureter is seen. 4. A small benign, fat-containing left adrenal adenoma is incidentally noted. 5. There is borderline aneurysmal dilatation of the ascending thoracic aorta. 6. There are minimal emphysematous changes. 7. Skeletal findings suggest possible DISH. Results Results: Laboratory Tests 12/25/16 0655: Anion Gap 8, Estimated GFR > 60, BUN/Creatinine Ratio 25.5 H, Magnesium 1.8 12/24/16 1955: Anion Gap 8, Estimated GFR 59 L, BUN/Creatinine Ratio 28.3 H, Magnesium 1.9 12/24/16 1207: Lactic Acid Cancelled 12/24/16 1112: Urine Color YEL, Urine Clarity CLEAR, Urine pH 6.0, Ur Specific [place] >= 1.030 , Urine Protein 30 H, Urine Ketones NEG, Urine Nitrite NEG, Urine Bilirubin NEG , Urine Urobilinogen 1.0, Ur Leukocyte Esterase SMALL H, Ur Microscopic SEDIMENT EXAMINED, Urine RBC 50-75 H, Urine WBC 15-25 H, Ur Epithelial Cells RARE, Urine Bacteria FEW H, Hyaline Casts 1-3 H, Urine Mucus MANY H, Urine Hemoglobin MOD H, Urine Glucose NEG 12/24/16 0930: Lactic Acid 0.7 12/24/16 0930: Anion Gap 12, Estimated GFR 54 L, BUN/Creatinine Ratio 30.0 H, Glucose 101 H, Calcium 9.0, Magnesium 1.9, Total Bilirubin 0.7, AST 18, ALT 39, Alkaline Phosphatase 75, Troponin I 0.06, Total Protein 6.5, Albumin 3.5, Globulin 3.0, Albumin/Globulin Ratio 1.2, Amylase 49, Lipase 103, CBC w Diff NO MAN DIFF REQ, RBC 4.22 L, MCV 96.3 H, MCH 31.5 H, RDW 13.8, MPV 7.5, Gran % 77.3 H, Lymphocytes % 12.3 L, Monocytes % 8.9, Eosinophils % 0.9, Basophils % 0.6, Absolute Granulocytes 6.0, Absolute Lymphocytes 1.0 L, Absolute Monocytes 0.7 H, Absolute Eosinophils 0.1, Absolute Basophils 0, PUBS MCHC 32.8 L, Serum Alcohol < 10.0 Microbiology 12/24 1532 STOOL: Clostridium difficile Toxin A & B - CAN Cancelled: SPECIMEN NOT RECEIVED IN LABORATORY 12/24 1112 URINE ROUT: Urine Culture - RES 12/24 1042 BLOOD: Blood Culture - RES 12/24 924 BLOOD: Blood Culture - RES 12/24 905 STOOL: Clostridium difficile Toxin A & B - CAN Cancelled: SPECIMEN NOT RECEIVED IN LABORATORY 12/24 905 STOOL: Stool Culture - CAN Cancelled: SPECIMEN NOT RECEIVED IN LABORATORY Assessment/Plan Assessment: 76 year old man with multiple medical problems seen for evaluation of diarrhea, urinary frequency/urgency/burning/hematuria and new non productive cough. Patient is reportedly normally constipated at baseline for which he started a probiotic and subsequently developed a profuse watery diarrhea. He was identified to have a urinary tract infection by his PCP for which he was provided Bactrim. Colonic distention/abdominal pain: -Patient is on a clear liquid diet -Zofran for nausea -Fecal tube for incontinence -F/u cultures and C. diff -GI consultation, F/u x-ray findings Urinary tract infection: -Continue Bactrim from PCP. -Dose was given in the ED yesterday for a positive UA Acute kidney Injury / Hypokalemia: -Patient's potassium was 2.9 on admission, currently 3.1 as of this morning\\ DVT ppx- SC Heparin Code status- FULL CODE
--- NOTE | 2016-12-25 15:45 | RADIOLOGY REPORT ---
EXAMINATION: XR ABDOMEN MULTIPLE VIEWS CLINICAL INDICATION: Fecal impaction, abdominal distention. COMPARISON: CT scan of the abdomen and pelvis dated 12/24/2016. TECHNIQUE: Supine and upright views of the abdomen were performed. FINDINGS: There is persistent marked gaseous distention of the stomach and small and large bowel loops in the abdomen. Small amount of contrast is seen within the stomach. On the upright view, a few scattered air-fluid levels are noted. No free air is seen under the diaphragms. A midline pelvic catheter is seen in place, incompletely imaged. The lung bases are clear. Right atrial and right ventricular pacer leads are in place. Multilevel degenerative changes are seen in the spine. IMPRESSION: No significant change in gaseous distention of small and large bowel loops compared to prior CT scan.
--- NOTE | 2016-12-25 15:47 | RADIOLOGY REPORT ---
EXAMINATION: XR MODIFIED BARIUM SWALLOW CLINICAL INFORMATION: Cough with food intake. COMPARISON: None. TECHNIQUE: A modified barium swallow was performed with speech pathologist in attendance. Pur?e, honey thick, nectar thick, thin, bread, and cracker consistencies were given to the patient and the swallowing mechanism was observed fluoroscopically with several spot films taken. FLUOROSCOPY TIME: 2 minutes 2 seconds. FINDINGS: With all consistencies, the oral phase of swallowing is normal. However, penetration was visualized with thin liquids on multiple occasions. There was also dodie aspiration visualized with multiple successive swallows of thin liquids, although silent without elicitation of a cough reflex. Pooling of contrast is noted in the valleculae with all consistencies. IMPRESSION: 1. Silent penetration and aspiration of contrast is seen with thin liquids. 2. Pooling of contrast is noted within the valleculae with all consistencies. 3. Speech pathologist assessment issued separately.
--- NOTE | 2016-12-25 21:50 | Cons- Gastroenterology ---
General Information and HPI Consulting Request Date of Consult: 12/25/16 Requested By: SHREYAS RIVAS M.D Reason for Consult: Constipation Rule out bowel obstruction Source of Information: patient, family, old records History of Present Illness: The patient is somewhat cognitively impaired and history is unreliable. The patient has a history of idiopathic autonomic neuropathy, for several years. He is followed by neurology at [place]. He has had progressively worse constipation treated with fiber, and Dulcolax when necessary. According to his , he can get significant gas and distention.. 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 Oliverio Anderson. According to his , his last 2 colonoscopies have been unsuccessful because of incomplete preparation. During the course of his hospitalization there has been evidence of problems swallowing and a modified barium swallow has been abnormal. The patient presents with 2 weeks of acute diarrhea, following a trip to [place] and progressive abdominal distention. Stool was, at first, "clear" followed by brown liquid. He had been on Bactrim for a urinary tract infection. He developed weakness and fell. Today, there has been no bowel movement. There is been a small amount of stool in the rectal tube/back. There is no abdominal pain, nausea, or vomiting. There has been no fever. Allergies/Medications Allergies: Coded Allergies: lorazepam (Intermediate, HALUCINATIONS, AGITATION 12/26/16) Home Med List: Aspirin (Lo-Dose Aspirin EC) 81 MG TABLET.DR 1 TAB PO DAILY HEART HEALTH ( Reported) Cyanocobalamin (Vitamin B-12) 1,000 MCG TABLET 1 TAB PO DAILY SUPPLEMENT ( Reported) Lactobacillus Acidophilus (Probiotic) 10 BILLION CELL CAPSULE 1 CAP PO DAILY GI (Reported) Melatonin 10 MG CAPSULE 1 TAB PO AT BEDTIME sleep Midodrine HCl 2.5 MG TABLET 1 TAB PO TIDAC PRN LOW BLOOD PRESSURE (Reported) Olmesartan Medoxomil (Benicar) 20 MG TABLET 1 TAB PO DAILY HEART HEALTH ( Reported) Omeprazole Magnesium 20 MG CAPSULE.DR 2 CAP PO BID ACID REFLUX (Reported) Polyethylene Glycol 3350 (Miralax) 17 GRAM POWD.PACK 1 PAC PO DAILY constipation dissolve in water Rosuvastatin Calcium (Crestor) 10 MG TABLET 1 TAB PO DAILY HEART HEALTH ( Reported) Sennosides/Docusate Sodium (Docusate Sodium-Senna Tablet) 8.6 MG-50 MG TABLET 2 TAB PO BID constipation Trazodone HCl 50 MG TABLET 25 MG PO BID PRN ANXIETY/AGITATION/INSOMNIA Current Medications: Current Medications Sig/Gumaro Start time Last Medication Dose Route Stop Time Status Admin Acetaminophen 1,000 MG Q6P PRN 12/24 1530 AC IV Aspirin Buffered 81 MG DAILY 12/25 1000 AC 12/25 PO 1008 Atorvastatin Calcium 40 MG 1700 12/24 1700 AC 12/25 PO 1707 Benzonatate 100 MG TID 12/25 1000 AC 12/25 PO 2138 Folic Acid 1 MG DAILY 12/25 1000 AC 12/25 PO 1008 Heparin Sodium 5,000 UNIT Q8 12/24 2200 AC 12/25 (Porcine) SC 2138 Lorazepam 0 Q1P PRN 12/24 1445 AC IV Losartan Potassium 50 MG DAILY 12/25 1056 AC 12/25 PO 1339 Midodrine 2.5 MG TIDAC PRN 12/24 1445 AC PO Multivitamins 1 TAB DAILY 12/24 1441 AC 12/25 PO 1008 Ondansetron HCl 4 MG Q6P PRN 12/24 1530 AC IV Patient Medication 1 ED .STK-MED ONE 12/25 1352 DC Teaching ED 12/25 1353 Potassium Chloride 40 MEQ ONCE ONE 12/25 1800 DC 12/25 PO 12/25 1801 1707 Potassium Chloride 40 MEQ ONCE ONE 12/25 1000 DC 12/25 PO 12/25 1001 1101 Potassium Chloride 40 MEQ ONCE ONE 12/25 0830 DC 12/25 PO 12/25 0831 1008 Potassium Chloride 10 MEQ ONCE ONE 12/25 0130 DC 12/25 IV 12/25 0131 0226 Sodium Chloride 1,000 ML Q10H 12/24 1445 DC 12/24 IV 12/25 0044 1456 Thiamine HCl 100 MG DAILY 12/24 1441 AC 12/25 PO 1008 Trimethoprim/ 1 TAB BID 12/25 2200 AC 12/25 Sulfamethoxazole PO 2138 Trimethoprim/ 1 TAB BID 12/24 2200 DC 12/25 Sulfamethoxazole PO 1008 Past History Travel History Traveled to [place] past 21 day No Medical History Blood Transfusion Hx: No Neurological: peripheral neuropathy... walks with braces on both ankles. 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 Home Who Do You Live With? spouse Services at Home: None Smoking Status: Former Smoker ETOH Use: heavy use Illicit Drug Use: denies illicit drug use Review of Systems Review of Systems Constitutional: Reports: malaise, weakness. Denies: fever. EENTM: Denies: icterus, epistaxis. Cardiovascular: Denies: chest pain, edema. Respiratory: Denies: cough, short of breath. GI: Reports: see HPI. Genitourinary: Denies: dysuria, hematuria. Musculoskeletal: Denies: muscle stiffness, neck pain. Skin: Denies: jaundice, lesions. Neurological/Psychological: Reports: cognitive dysfunction, confusion. Hematologic/Endocrine: Denies: bruising, bleeding. Exam & Diagnostic Data Vital Signs and I&O Vital Signs Date Time Temp Pulse Resp B/P B/P Pulse O2 O2 Flow FiO2 Mean Ox Delivery Rate 12/25 1419 98.1 80 20 120/70 96 12/25 1339 89 152/80 12/25 1142 Room Air Room Air 12/25 1112 Room Air Room Air 12/25 0738 97.9 89 21 152/80 93 Room Air 12/25 0600 98.1 94 18 164/90 12/25 0400 98.1 94 18 164/90 12/25 0200 98.1 94 18 164/90 /09 0000 98.1 94 18 164/90 /08 2251 98.1 94 22 164/90 94 Room Air 12/24 2200 98.1 94 18 164/90 Intake & Output 12/25 1600 12/25 0400 12/24 1600 12/24 0400 12/23 1600 12/23 0400 Intake Total 100 50 Output Total 1200 100 350 Balance -1100 -50 -350 Intake, IV 100 Intake, Oral 50 Number 1 Bowel Movements Output, Urine 1200 100 350 Patient 242 lb 240 lb Weight Weight Reported by Patient Measurement Method Physical Exam: Well-developed well-nourished. Confused. Skin normal. No lesion or jaundice. No adenopathy. No scleral icterus, oropharyngeal lesion, or neck mass/ thyromegaly. Heart regular rhythm. Lungs clear. Abdomen is mildly distended and soft with normal bowel sounds, and no tenderness masses or organomegaly. There is a rectal tube intact. Extremities without clubbing, cyanosis or edema. Results Pertinent Lab Results: Laboratory Tests 12/25 12/24 12/24 0655 1955 1207 Chemistry Sodium (137 - 145 mmol/L) 142 139 Potassium (3.5 - 5.1 mmol/L) 3.1 L 3.2 L Chloride (98 - 107 mmol/L) 110 H 109 H Carbon Dioxide (22 - 30 mmol/L) 24 22 Anion Gap (5 - 16) 8 8 BUN (9 - 20 mg/dL) 28 H 34 H Creatinine (0.7 - 1.2 mg/dL) 1.1 1.2 Estimated GFR (>60 ml/min) > 60 59 L BUN/Creatinine Ratio (7 - 25 %) 25.5 H 28.3 H Lactic Acid Cancelled Magnesium (1.6 - 2.3 mg/dL) 1.8 1.9 12/24 12/24 1112 0930 Chemistry Lactic Acid (0.7 - 2.1 mmol/L) 0.7 Urines Urine Color (YEL,AMB,STR) YEL Urine Clarity (CLEAR) CLEAR Urine pH (5.0 - 8.0) 6.0 Ur Specific [place] (1.001 - 1.035) >= 1.030 Urine Protein (NEG,<30 MG/DL) 30 H Urine Ketones (NEG) NEG Urine Nitrite (NEG) NEG Urine Bilirubin (NEG) NEG Urine Urobilinogen (0.1 - 1.0 EU/dl) 1.0 Ur Leukocyte Esterase (NEG) SMALL H Ur Microscopic SEDIMENT EXAMINED Urine RBC (0 - 5 /HPF) 50-75 H Urine WBC (0 - 2 /HPF) 15-25 H Ur Epithelial Cells (NONE,FEW) RARE Urine Bacteria (NEG/NONE) FEW H Hyaline Casts (0/LPF) 1-3 H Urine Mucus (FEW,NONE) MANY H Urine Hemoglobin (NEG) MOD H Urine Glucose (N MG/DL) NEG 12/24 929 Chemistry Sodium (137 - 145 mmol/L) 144 Potassium (3.5 - 5.1 mmol/L) 2.9 *L Chloride (98 - 107 mmol/L) 106 Carbon Dioxide (22 - 30 mmol/L) 26 Anion Gap (5 - 16) 12 BUN (9 - 20 mg/dL) 39 H Creatinine (0.7 - 1.2 mg/dL) 1.3 H Estimated GFR (>60 ml/min) 54 L BUN/Creatinine Ratio (7 - 25 %) 30.0 H Glucose (65 - 99 mg/dL) 101 H Calcium (8.4 - 10.2 mg/dL) 9.0 Magnesium (1.6 - 2.3 mg/dL) 1.9 Total Bilirubin (0.2 - 1.3 mg/dL) 0.7 AST (17 - 59 U/L) 18 ALT (21 - 72 U/L) 39 Alkaline Phosphatase (< 127 U/L) 75 Troponin I (<0.11 ng/ml) 0.06 Total Protein (6.3 - 8.2 g/dL) 6.5 Albumin (3.5 - 5.0 g/dL) 3.5 Globulin (1.9 - 4.2 gm/dL) 3.0 Albumin/Globulin Ratio (1.1 - 2.2 %) 1.2 Amylase (30 - 110 U/L) 49 Lipase (23 - 300 U/L) 103 Hematology CBC w Diff NO MAN DIFF REQ WBC (4.8 - 10.8 /CUMM) 7.8 RBC (4.70 - 6.10 /CUMM) 4.22 L Hgb (14.0 - 18.0 G/DL) 13.3 L Hct (42 - 52 %) 40.7 L MCV (80.0 - 94.0 FL) 96.3 H MCH (27.0 - 31.0 PG) 31.5 H RDW (11.5 - 14.5 %) 13.8 Plt Count (130 - 400 /CUMM) 147 MPV (7.4 - 10.4 FL) 7.5 Gran % (42.2 - 75.2 %) 77.3 H Lymphocytes % (20.5 - 51.1 %) 12.3 L Monocytes % (1.7 - 9.3 %) 8.9 Eosinophils % (0 - 5 %) 0.9 Basophils % (0.0 - 2.0 %) 0.6 Absolute Granulocytes (1.4 - 6.5 /CUMM) 6.0 Absolute Lymphocytes (1.2 - 3.4 /CUMM) 1.0 L Absolute Monocytes (0.10 - 0.60 /CUMM) 0.7 H Absolute Eosinophils (0.0 - 0.7 /CUMM) 0.1 Absolute Basophils (0.0 - 0.2 /CUMM) 0 PUBS MCHC (33.0 - 37.0 G/DL) 32.8 L Toxicology Serum Alcohol (<10 MG/DL) < 10.0 Assessment/Plan Assessment/Recommendations: 1. The patient presents with acute diarrhea (less than 2 weeks in duration), and abdominal distention. His diarrhea is improving, his abdomen is only mildly distended on current examination. There is likely chronic constipation secondary to his autonomic neuropathy, with acute diarrhea secondary to either infection, bacterial overgrowth, obstipation or impaction with overflow, etc. It has improved, and his distention has lessened according to his . 2. Oropharyngeal dysphagia with evidence of aspiration of thin liquids on modified barium swallow. Recommendations * Consider neurology evaluation * Diet consistency as per speech pathology recommendations * Monitor stool output * Stool for culture, C. difficile toxin * Defer endoscopic evaluation for now * With worsening distention may benefit from a water soluble contrast enema study Consult Acknowledgment - Thank you for your consult request.
[2016-12-26] VITALS (12 sets, daily range): BP systolic 120–182; BP diastolic 60–110
--- NOTE | 2016-12-26 03:09 | NUR ---
AT 0115 BP 182/110. PAGED JESSE AGUILAR MD, PER MD RECHECK BP IN 30 MINUTES. BP 180/102, PO LABETALOL ORDERED. MED GIVEN PER EMAR. BP NOW 158/81 HR 102, MD MADE [place]
--- NOTE | 2016-12-26 07:24 | PN- Housestaff ---
JESSICA YEN,BHAVESH 12/26/16 0724: Subjective Follow-up For: Constipation secondary to autonomic neuropathy Subjective: Overnight events: Patient had high BP 180/100mmHg, received a single dose of labetalol 100mg, he also noted to have hallucinations, sweating and tachycardia with a CIWA score of 9, so received a single dose of ativan 1mg IV given. AM Patient noted to be lethargic although alert and oriented X 3. He denies any pain. at bedside - had an extensive discussion regarding ativan administration. She reports patient dont usually tolerate ativan - causes hallucinations, altered mentation. In addition he aspirated his breakfast today. Underwent swallow evaluation in the laterpart of the day - started on pureed and nectar thick diet. Review of Systems Constitutional: Reports: see HPI. Comments: ROS negative except the above. Objective Last 24 Hrs of Vital Signs/I&O Vital Signs Date Time Temp Pulse Resp B/P B/P Pulse O2 O2 Flow FiO2 Mean Ox Delivery Rate 12/26 0658 99.0 80 24 148/92 93 Room Air 12/26 0313 97.7 102 18 158/81 12/26 0214 100 180/102 12/26 0200 100 18 180/102 12/26 0153 98.0 98 18 182/110 96 12/26 0000 Room Air 12/25 1419 98.1 80 20 120/70 96 12/25 1339 89 152/80 12/25 1142 Room Air Room Air 12/25 1112 Room Air Room Air 12/25 0738 97.9 89 21 152/80 93 Room Air Intake & Output 12/26 0800 12/26 0000 12/25 1600 Intake Total 200 Output Total 281 185 7146 Balance -200 -300 -1000 Intake, Oral 200 Number 1 Bowel Movements Output, Urine 991 080 5975 Physical Exam General Appearance: Alert, Oriented X3, Cooperative, No Acute Distress Skin: No Rashes, No Breakdown HEENT: Atraumatic, PERRLA, EOMI Neck: Supple, No JVD Cardiovascular: Normal S1, Normal S2 Lungs: Normal Air Movement, decreased breath sounds at bases Abdomen: Normal Bowel Sounds, Soft, No Tenderness Neurological: Normal Speech, Sensation Intact, incresed tone, rigid Extremities: No Clubbing, No Cyanosis, No Edema Current Medications: Current Medications Sig/Gumaro Start time Last Medication Dose Route Stop Time Status Admin Acetaminophen 1,000 MG Q6P PRN 12/24 1530 AC IV Aspirin Buffered 81 MG DAILY 12/25 1000 AC 12/26 PO 1344 Atorvastatin Calcium 40 MG 1700 12/24 1700 AC 12/26 PO 1854 Benzonatate 100 MG TID 12/25 1000 AC 12/26 PO 1343 Folic Acid 1 MG DAILY 12/25 1000 AC 12/25 PO 1008 Heparin Sodium 5,000 UNIT Q8 12/24 2200 AC 12/26 (Porcine) SC 1346 Labetalol HCl 100 MG ONCE ONE 12/26 0200 DC 12/26 PO 12/26 0201 0214 Lorazepam 0.5 MG ONE ONE 12/26 0315 CAN PO 12/26 0316 Lorazepam 0 Q1P PRN 12/24 1445 DC 12/26 IV 0525 Losartan Potassium 50 MG DAILY 12/25 1056 AC 12/25 PO 1339 Midodrine 2.5 MG TIDAC PRN 12/24 1445 AC PO Multivitamins 1 TAB DAILY 12/24 1441 AC 12/25 PO 1008 Ondansetron HCl 4 MG Q6P PRN 12/24 1530 AC IV Patient Medication 1 ED ONE ONE 12/26 1415 DC Teaching ED 12/26 1416 Polyethylene Glycol 17 GM DAILY 12/26 1551 AC 12/26 PO 1854 Potassium Chloride 40 MEQ ONCE ONE 12/26 1545 DC 12/26 PO 12/26 1546 1854 Potassium Chloride 40 MEQ ONCE ONE 12/26 0830 DC PO 12/26 0831 Thiamine HCl 100 MG DAILY 12/24 1441 AC 12/25 PO 1008 Trimethoprim/ 1 TAB BID 12/25 2200 AC 12/26 Sulfamethoxazole PO 1343 Trimethoprim/ 1 TAB BID 12/24 2200 DC 12/25 Sulfamethoxazole PO 1008 Last 24 Hrs of Lab/[place] Results Last 24 Hrs of Labs/Mics: Laboratory Tests 12/26/16 0625: Anion Gap 8, Estimated GFR > 60, BUN/Creatinine Ratio 20.0, Magnesium 1.8 Microbiology 12/26 1400 STOOL: Clostridium difficile Toxin A & B - RECD 12/26 1400 STOOL: Stool Culture - RECD Assessment/Plan Assessment: 76 year old man with extensive PMH admitted for evaluation of diarrhea, urinary frequency/urgency/burning/hematuria and dry cough. Patient is reportedly normally constipated at baseline for which he started a probiotic and subsequently developed a profuse watery diarrhea. He was identified to have a urinary tract infection by his PCP for which he was provided Bactrim. Otherwise he also admits to a cough of unclear signficance, but is of great distress to the patient. He is not very functional at baseline. Imaging CT Chest/Abdomen/Pelvis colon distention with gas/stool, mild right sided hydro, fat containing left adrenal adenoma Constipation secondary to Autonomic Neuropathy Patient with history of autonomic neuropathy followed by neurologist Dr. Cali and baseline constipation seen for evaluation of profuse watery diarrhea. * Pancultures - negative blood and urine cultures. * Pending C.Diff and stool cultures. * Adequate drainage from rectal tube with signifcant reduction in abdominal distention. * we will discontinue rectal tube today, repeat abdominal xray tomorrow morning. * Neurology evaluated patient today - suggested mirlax daily. No additional interventions recommended. 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 * Daily miralx therapy. * Referral to [facility]. * GI consulted - appreciate their recommendations. Altered mentation/lethargy * Probably secondary to withdrawl vs delirium. * Discontinued Ativan, low dose haldol with agitation. * We will follow up with psychiatry. Recent Urinary Tract Infection Patient was recently treated for urinary tract infection by his PCP this past with Bactrim. He received an additional dose of Bactrim in the ED for a positive urinalysis. * Continue Bactrim DS 1 TAB PO BID EtOH Dependence Patient admits to drinking 1-2 vodka drinks with shots daily. * CIWA between 0-9. * Discontinued ativan * B12/Thiamine/Folate/MV Significant Hypokalemia * Admitted with K of 2.9 * Today 3.4 -- repleted with Klor * Repeat BEP tomorrow. Dry cough - worse with eating * Underwent swallow evaluation followed by barium swallow for dry cough - started on chopped, nectar thick liquids. * As patient aspirated today morning, we repeated swallow evaluation and strated on pureed consistency with nectar thick liquids. Labile Blood pressure * On midodrine 2.5mg TID as needed -- Autonomic neuropathy. * Currently on Benicar 20mg at home converted to losartan here. * If patient is hypertensive - consider making him sit for some time & repeat blood pressure after 15min. * Never provide with antihypertensives in the first place as he can have very unpredictable alteration of his Blood pressure. Hypertension: Benicar. Hyperlipidemia: Atorvastatin 40mg PO Daily Atrial fibrillation s/p pacemaker: Aspirin 81mg GERD: Omeprazole on hold Pain Plan-Acetaminophen Diet- regular - pureed and nectar thick DVT PPx- Subcutaneous Heparin Code Status- FULL CODE Problem List: 1. Hypokalemia 2. Diarrhea 3. Autonomic neuropathy 4. Colon distention Pain Ratin Pain Location: abdomen Pain Goal: Pain 4 or less Pain Plan: Tylenol Tomorrow's Labs & Rationales: bep - potassium levels. Consulting Request: Consulting Specialty: Gastroenterology SHREYAS RIVAS MD 12/26/16 1542: Attending MD Review Statement Attending Statement Attending MD Statement: examined this patient, discuss w/resident/PA/[employer]ER, agreed w/resident/PA/[employer], reviewed EMR data (avail), discussed with nursing, amended to note Attending Assessment/Plan: Patient seen and examined. He was drowsy this morning. However as the progressed he became more alert and oriented. Apparently overnight he became agitated. There is report of daily intake of vodka. Due to concern for alcohol withdrawal he received 2 doses of Ativan overnight. He apparently became more agitated with has hallucinations after receiving the Ativan. reports that this has occurred with the patient in the past after receiving Ativan therapy. While drowsy this morning he attempted male and appears to have aspirated mildly. However as the day progressed and he became more alert bedside swallow evaluation was done which she tolerated. Recommendations are noted. He was seen by the gastroenterology service yesterday. In addition to the current therapy with rectal tube a neurology consultation was recommended. I did speak with the patient's outpatient neurologist and updated him of the patient's condition. The neurology service here continues recommend therapy with a bowel regimen. Unfortunately with his autonomic neuropathy interventions are limited. Output from rectal tube has been low. Fortunately the abdomen is soft, nontender and appears less distended compared to presentation. Abdominal x-ray yesterday showed persistent distention. Recommendations: -Keep rectal tube in place. Continue bowel regimen. -Discontinue Ativan. Recommend low dose of Haldol when necessary agitation. Recommend consultation with psychiatry service for additional recommendations of managing his agitation. It is unclear if his agitation is secondary to sundowning all withdrawal from alcohol. We'll discuss further with the psychiatric service.
--- NOTE | 2016-12-26 10:45 | NUR ---
PHYSICAL THERAPY: RECIEVED CONSULT ORDERS, REVIEWED CHART, SPOKE TO . PER , PATIENT WAS BROUGHT INTO THE E.D. DUE TO AUTONOMIC NEUROPATHY AND IS NOT WALKING. EDUCATED ON ROLE OF P.T. AND NEED FOR FORMAL EVALUATION AND D/C PLANNING. Pt RECENTLY GIVEN ATIVAN, PER , HE IS UNRESPONSIVE. ATTEMPTED TO WAKE PATIENT, EASILY AROUSABLE BUT DIFFICULTY KEEPING EYES OPEN. WILL F/U FOR P.T. EVALUATION ABLE. STATES CONCERN REGARDING CONSULT FOR P.T. EVALUATION INAPPROPRIATE DUE CURRENT STATE OF WEAKNESS AND INABILITY TO WALK, WILL BE SPEAKING TO MD.
--- NOTE | 2016-12-26 15:22 | Cons- Neurology ---
General Information and HPI Consulting Request Date of Consult: 12/26/16 Requested By: SHREYAS RIVAS M.D Source of Information: patient, family, old records Exam Limitations: no limitations History of Present Illness: 76-year-old male who carries history of autonomic neuropathy. Presently admitted for severe bowel problems including constipation. Also been having periods of dizziness and weakness. The mild symptoms of fever at home. He recently returned from a trip to [place] and has been exhausted since that time. Symptoms of neuropathy began in 2004 when he had numb-like sensation involving both lower and upper extremities. Symptoms worsened when he started having periods of falls, fluctuating blood pressure, imbalance. He currently walks with a rolling walker but often requires a wheelchair for longer distances He had been followed at the for his neuropathy. Symptoms have been progressive Over this period of time he has not been able to write. He requires near total assistance from his . Allergies/Medications Allergies: Coded Allergies: lorazepam (Intermediate, HALUCINATIONS, AGITATION 12/26/16) Home Med List: Aspirin (Lo-Dose Aspirin EC) 81 MG TABLET.DR 1 TAB PO DAILY HEART HEALTH ( Reported) Cyanocobalamin (Vitamin B-12) 1,000 MCG TABLET 1 TAB PO DAILY SUPPLEMENT ( Reported) Lactobacillus Acidophilus (Probiotic) 10 BILLION CELL CAPSULE 1 CAP PO DAILY GI (Reported) Midodrine HCl 2.5 MG TABLET 1 TAB PO TIDAC PRN LOW BLOOD PRESSURE (Reported) Olmesartan Medoxomil (Benicar) 20 MG TABLET 1 TAB PO DAILY HEART HEALTH ( Reported) Omeprazole Magnesium 20 MG CAPSULE.DR 2 CAP PO BID ACID REFLUX (Reported) Rosuvastatin Calcium (Crestor) 10 MG TABLET 1 TAB PO DAILY HEART HEALTH ( Reported) Sulfamethoxazole/Trimethoprim (Sulfamethoxazole-Tmp Ds Tablet) 800 MG-160 MG TABLET 1 TAB PO BID ANTIBIOTIC, INFECTION (Reported) Current Medications: Current Medications Sig/Gumaro Start time Last Medication Dose Route Stop Time Status Admin Acetaminophen 1,000 MG Q6P PRN 12/24 1530 AC IV Aspirin Buffered 81 MG DAILY 12/25 1000 AC 05/10 PO 1344 Atorvastatin Calcium 40 MG 1700 / 1700 AC 05/09 PO 1707 Benzonatate 100 MG TID 12/25 1000 AC 05/10 PO 1343 Folic Acid 1 MG DAILY 12/25 1000 AC 05/09 PO 1008 Heparin Sodium 5,000 UNIT Q8 12/24 220 AC 12/26 (Porcine) SC 1346 Labetalol HCl 100 MG ONCE ONE 12/26 0200 DC 12/26 PO 12/26 0201 0214 Lorazepam 0.5 MG ONE ONE 12/26 0315 CAN PO 12/26 0316 Lorazepam 0 Q1P PRN 12/24 1445 DC 12/26 IV 0525 Losartan Potassium 50 MG DAILY 12/25 1056 AC 12/25 PO 1339 Midodrine 2.5 MG TIDAC PRN 12/24 1445 AC PO Multivitamins 1 TAB DAILY 12/24 1441 AC 12/25 PO 1008 Ondansetron HCl 4 MG Q6P PRN 12/24 1530 AC IV Patient Medication 1 ED ONE ONE 12/26 1415 DC Teaching ED 12/26 1416 Potassium Chloride 40 MEQ ONCE ONE 12/26 0830 DC PO 12/26 0831 Potassium Chloride 40 MEQ ONCE ONE 12/25 1800 DC 12/25 PO 12/25 1801 1707 Thiamine HCl 100 MG DAILY 12/24 144 AC 12/25 PO 1008 Trimethoprim/ 1 TAB BID 12/25 2200 AC 12/26 Sulfamethoxazole PO 1343 Trimethoprim/ 1 TAB BID 12/24 2200 DC 12/25 Sulfamethoxazole PO 1008 Review of Systems Review of Systems: No headache or vertigo, visual perceptual difficulty, no trouble swallowing, mild dysarthria present the states that it is from his medications, no chest pains, breathing difficulties. Abdominal discomfort when he is constipated, occasional urinary incontinence, no significant swelling in lower extremities. No loss of consciousness or significant head trauma At the systems reviewed are negative Past History Travel History Traveled to [place] past 21 day No Medical History Blood Transfusion Hx: No Neurological: peripheral neuropathy... walks with braces on both ankles. 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 Home Who Do You Live With? spouse Services at Home: None Smoking Status: Former Smoker ETOH Use: heavy use Illicit Drug Use: denies illicit drug use Exam & Diagnostic Data Vital Signs and I&O Mildly dysarthric ,Vital Signs Date Time Temp Pulse Resp B/P B/P Pulse O2 O2 Flow FiO2 Mean Ox Delivery Rate 12/26 1409 98.2 80 20 120/60 98 12/26 1343 Room Air Room Air 12/26 1150 99.2 80 20 130/80 96 12/26 0658 99.0 80 24 148/92 93 Room Air 12/26 0313 97.7 102 18 158/81 12/26 0214 100 180/102 12/26 0200 100 18 180/102 12/26 0153 98.0 98 18 182/110 96 12/26 0000 Room Air Intake & Output 12/26 1600 12/26 0800 12/26 0000 Intake Total 100 200 Output Total 200 500 Balance -100 -300 Intake, Oral 100 200 Output, Urine 200 500 Patient 241 lb Weight Mild dysarthria, comfortable, oriented to place but not exact day, knows age, fund of knowledge reasonably intact Heart sounds normal, no carotid bruits, distal pulses not palpated Extraocular movements full, pupils equal reactive, fundi not fully assessed, visual govea intact, no facial weakness, palatal and shoulders midline Mild rigidity in upper extremities greater than lower extremities, mild tremor at rest upper extremities Gross motor strength intact, fine motor impairment bilaterally Finger to nose maneuver intact, rapid alternating movements impaired Mild diminished sensation to light touch but not position upper and lower extremities Deep tendon reflexes hypoactive, plantar response mute Gait not assessed due to absence of walker Last 48 Hours of Lab Results: Laboratory Tests 12/26 12/25 12/24 0625 0655 195 Chemistry Sodium (137 - 145 mmol/L) 140 142 139 Potassium (3.5 - 5.1 mmol/L) 3.4 L 3.1 L 3.2 L Chloride (98 - 107 mmol/L) 108 H 110 H 109 H Carbon Dioxide (22 - 30 mmol/L) 24 24 22 Anion Gap (5 - 16) 8 8 8 BUN (9 - 20 mg/dL) 18 28 H 34 H Creatinine (0.7 - 1.2 mg/dL) 0.9 1.1 1.2 Estimated GFR (>60 ml/min) > 60 > 60 59 L BUN/Creatinine Ratio (7 - 25 %) 20.0 25.5 H 28.3 H Magnesium (1.6 - 2.3 mg/dL) 1.8 1.8 1.9 FINDINGS: With all consistencies, the oral phase of swallowing is normal. However, penetration was visualized with thin liquids on multiple occasions. There was also dodie aspiration visualized with multiple successive swallows of thin liquids, although silent without elicitation of a cough reflex. Pooling of contrast is noted in the valleculae with all consistencies. IMPRESSION: 1. Silent penetration and aspiration of contrast is seen with thin liquids. 2. Pooling of contrast is noted within the valleculae with all consistencies. 3. Speech pathologist assessment issued separately. Assessment/Plan Assessment: Autonomic dysfunction related to autonomic neuropathy Mild parkinsonian features Recommendations: Trial of MiraLAX for constipation Speech therapy for aspiration as per barium swallow Physical therapy/OT Consult Acknowledgment - Thank you for your consult request.
--- NOTE | 2016-12-26 18:55 | PN- Gastroenterology ---
Assessment/Plan Assessment/Recommendations: 1. Autonomic neuropathy with chronic constipation. Acute diarrhea, possibly infectious, possibly antibiotic associated, seemingly in resolution. Improvement in distention. 2. Oropharyngeal dysphagia with evidence of aspiration of thin liquids on modified barium swallow. Recommendations * Appreciate neurology evaluation * Diet consistency as per speech pathology recommendations * May discontinue rectal tube; monitor stool output * Stool for culture, C. difficile toxin pending * Abdominal x-ray tomorrow * Begin MiraLAX 17 g by mouth daily * Defer endoscopic evaluation for now * For eventual evaluation at [facility] Subjective Subjective: Patient asleep/sedated. Difficult to ascertain bowel output. Soft stool in rectal tube and container. According to , he ate lunch without complication. Review of Systems: Unobtainable Objective Vital Signs and I&Os Vital Signs Date Time Temp Pulse Resp B/P B/P Pulse O2 O2 Flow FiO2 Mean Ox Delivery Rate 12/26 1559 97.9 83 20 128/60 95 Room Air 12/26 1409 98.2 80 20 120/60 98 12/26 1343 Room Air Room Air 12/26 1150 99.2 80 20 130/80 96 12/26 0800 Room Air 12/26 0658 99.0 80 24 148/92 93 Room Air 12/26 0313 97.7 102 18 158/81 12/26 0214 100 180/102 12/26 0200 100 18 180/102 12/26 0153 98.0 98 18 182/110 96 12/26 0000 Room Air Intake & Output 12/26 1600 12/26 0400 12/25 1600 12/25 0400 12/24 1600 12/24 0400 Intake Total 580 200 100 50 Output Total 944 256 6297 100 350 Balance 380 -500 -1100 -50 -350 Intake, IV 0 100 Intake, Oral 580 200 50 Number 1 Bowel Movements Output, Stool 100 Output, Urine 295 326 6257 100 350 Patient 241 lb 242 lb 240 lb Weight Weight Reported by Patient Measurement Method Physical Exam: Abdomen is soft, nontender. Significantly less distended than previously. Current Medications: Current Medications Sig/Gumaro Start time Last Medication Dose Route Stop Time Status Admin Acetaminophen 1,000 MG Q6P PRN 12/24 1530 AC IV Aspirin Buffered 81 MG DAILY 12/25 1000 AC 12/26 PO 1344 Atorvastatin Calcium 40 MG 1700 12/24 1700 AC 12/25 PO 1707 Benzonatate 100 MG TID 12/25 1000 AC 12/26 PO 1343 Folic Acid 1 MG DAILY 12/25 1000 AC 12/25 PO 1008 Heparin Sodium 5,000 UNIT Q8 12/24 220 AC 12/26 (Porcine) SC 1346 Labetalol HCl 100 MG ONCE ONE 12/26 0200 DC 12/26 PO 12/26 0201 0214 Lorazepam 0.5 MG ONE ONE 12/26 0315 CAN PO 12/26 0316 Lorazepam 0 Q1P PRN 12/24 1445 DC 12/26 IV 0525 Losartan Potassium 50 MG DAILY 12/25 1056 AC 12/25 PO 1339 Midodrine 2.5 MG TIDAC PRN 12/24 1445 AC PO Multivitamins 1 TAB DAILY 12/24 1441 AC 12/25 PO 1008 Ondansetron HCl 4 MG Q6P PRN 12/24 1530 AC IV Patient Medication 1 ED ONE ONE 12/26 1415 DC Teaching ED 12/26 1416 Polyethylene Glycol 17 GM DAILY 12/26 1551 AC PO Potassium Chloride 40 MEQ ONCE ONE 12/26 1545 DC PO 12/26 1546 Potassium Chloride 40 MEQ ONCE ONE 12/26 0830 DC PO 12/26 0831 Thiamine HCl 100 MG DAILY 12/24 1441 AC 12/25 PO 1008 Trimethoprim/ 1 TAB BID 12/25 2199 AC 12/26 Sulfamethoxazole PO 1343 Trimethoprim/ 1 TAB BID 12/24 220 DC 12/25 Sulfamethoxazole PO 1008 Results Pertinent Lab Results: Laboratory Tests 12/26 12/25 12/24 12/24 0625 0655 1955 1207 Chemistry Sodium (137 - 145 mmol/L) 140 142 139 Potassium (3.5 - 5.1 mmol/L) 3.4 L 3.1 L 3.2 L Chloride (98 - 107 mmol/L) 108 H 110 H 109 H Carbon Dioxide (22 - 30 mmol/L) 24 24 22 Anion Gap (5 - 16) 8 8 8 BUN (9 - 20 mg/dL) 18 28 H 34 H Creatinine (0.7 - 1.2 mg/dL) 0.9 1.1 1.2 Estimated GFR (>60 ml/min) > 60 > 60 59 L BUN/Creatinine Ratio (7 - 25 %) 20.0 25.5 H 28.3 H Lactic Acid Cancelled Magnesium (1.6 - 2.3 mg/dL) 1.8 1.8 1.9 12/24 12/24 1112 0930 Chemistry Lactic Acid (0.7 - 2.1 mmol/L) 0.7 Urines Urine Color (YEL,AMB,STR) YEL Urine Clarity (CLEAR) CLEAR Urine pH (5.0 - 8.0) 6.0 Ur Specific [place] (1.001 - 1.035) >= 1.030 Urine Protein (NEG,<30 MG/DL) 30 H Urine Ketones (NEG) NEG Urine Nitrite (NEG) NEG Urine Bilirubin (NEG) NEG Urine Urobilinogen (0.1 - 1.0 EU/dl) 1.0 Ur Leukocyte Esterase (NEG) SMALL H Ur Microscopic SEDIMENT EXAMINED Urine RBC (0 - 5 /HPF) 50-75 H Urine WBC (0 - 2 /HPF) 15-25 H Ur Epithelial Cells (NONE,FEW) RARE Urine Bacteria (NEG/NONE) FEW H Hyaline Casts (0/LPF) 1-3 H Urine Mucus (FEW,NONE) MANY H Urine Hemoglobin (NEG) MOD H Urine Glucose (N MG/DL) NEG 12/24 0930 Chemistry Sodium (137 - 145 mmol/L) 144 Potassium (3.5 - 5.1 mmol/L) 2.9 *L Chloride (98 - 107 mmol/L) 106 Carbon Dioxide (22 - 30 mmol/L) 26 Anion Gap (5 - 16) 12 BUN (9 - 20 mg/dL) 39 H Creatinine (0.7 - 1.2 mg/dL) 1.3 H Estimated GFR (>60 ml/min) 54 L BUN/Creatinine Ratio (7 - 25 %) 30.0 H Glucose (65 - 99 mg/dL) 101 H Calcium (8.4 - 10.2 mg/dL) 9.0 Magnesium (1.6 - 2.3 mg/dL) 1.9 Total Bilirubin (0.2 - 1.3 mg/dL) 0.7 AST (17 - 59 U/L) 18 ALT (21 - 72 U/L) 39 Alkaline Phosphatase (< 127 U/L) 75 Troponin I (<0.11 ng/ml) 0.06 Total Protein (6.3 - 8.2 g/dL) 6.5 Albumin (3.5 - 5.0 g/dL) 3.5 Globulin (1.9 - 4.2 gm/dL) 3.0 Albumin/Globulin Ratio (1.1 - 2.2 %) 1.2 Amylase (30 - 110 U/L) 49 Lipase (23 - 300 U/L) 103 Hematology CBC w Diff NO MAN DIFF REQ WBC (4.8 - 10.8 /CUMM) 7.8 RBC (4.70 - 6.10 /CUMM) 4.22 L Hgb (14.0 - 18.0 G/DL) 13.3 L Hct (42 - 52 %) 40.7 L MCV (80.0 - 94.0 FL) 96.3 H MCH (27.0 - 31.0 PG) 31.5 H RDW (11.5 - 14.5 %) 13.8 Plt Count (130 - 400 /CUMM) 147 MPV (7.4 - 10.4 FL) 7.5 Gran % (42.2 - 75.2 %) 77.3 H Lymphocytes % (20.5 - 51.1 %) 12.3 L Monocytes % (1.7 - 9.3 %) 8.9 Eosinophils % (0 - 5 %) 0.9 Basophils % (0.0 - 2.0 %) 0.6 Absolute Granulocytes (1.4 - 6.5 /CUMM) 6.0 Absolute Lymphocytes (1.2 - 3.4 /CUMM) 1.0 L Absolute Monocytes (0.10 - 0.60 /CUMM) 0.7 H Absolute Eosinophils (0.0 - 0.7 /CUMM) 0.1 Absolute Basophils (0.0 - 0.2 /CUMM) 0 PUBS MCHC (33.0 - 37.0 G/DL) 32.8 L Toxicology Serum Alcohol (<10 MG/DL) < 10.0 Imaging/Other Studies: No new imaging to review.
[2016-12-27] VITALS (9 sets, daily range): BP systolic 120–170; BP diastolic 60–90
--- NOTE | 2016-12-27 02:31 | NUR ---
NURSING NOTE: AROUND 0115 PT WOKE UP AGITATED WITH INCREASED CONFUSION. ATTEMPTS OOB AND REMOVING CLOTHES. MD AGUILAR PAGED AND MADE AWARE. ONE TIME ORDER FOR 1MG IM HALDOL ORDERED. HALDOL ADMINISTERED BY THIS RN. RN WILL CONTINUE TO MONITOR.
--- NOTE | 2016-12-27 06:30 | PN- Housestaff ---
JESSICA YEN,[facility] 12/27/16 0629: Subjective Follow-up For: Constipation secondary to autonomic neuropathy Subjective: I saw the patient today morning, he is very drowsy but alert and oriented. Overnight - he was agitated and a dose of 1mg IM haldol was given. Rectal tube was removed. In the later part of the day, he is much more alert and oriented, able to speak. He had 2 episodes of loose bowel movements in the later part of the day. He still had some dry cough but better. No fever/chills. Review of Systems Constitutional: Reports: see HPI. Objective Last 24 Hrs of Vital Signs/I&O Vital Signs Date Time Temp Pulse Resp B/P B/P Pulse O2 O2 Flow FiO2 Mean Ox Delivery Rate 12/27 0600 97.6 95 20 150/90 12/27 0401 97.6 95 20 150/90 94 Room Air 12/27 0400 97.6 95 20 150/90 12/27 0115 97.6 93 20 120/60 12/27 0106 97.6 93 20 120/60 95 Room Air 12/27 0000 97.6 93 20 120/60 12/27 0000 95 Room Air 12/26 2200 97.9 83 20 128/60 12/26 2000 97.9 83 20 128/60 05/ 1952 97.8 77 20 124/70 94 Room Air 12/26 1800 97.9 83 20 128/60 12/26 1600 98.2 80 20 120/60 05 1559 97.9 83 20 128/60 95 Room Air 12/26 1409 98.2 80 20 120/60 98 12/26 1343 Room Air Room Air 12/26 1150 99.2 80 20 130/80 96 12/26 0800 Room Air 12/26 0658 99.0 80 24 148/92 93 Room Air Intake & Output 12/27 0800 12/27 0000 12/26 1600 Intake Total 240 240 480 Output Total 200 Balance 240 240 280 Intake, IV 0 Intake, Oral 240 240 480 Output, Stool 100 Output, Urine 100 Patient 109.316 kg Weight Physical Exam General Appearance: Alert, Oriented X3, Cooperative, No Acute Distress Skin: No Rashes, No Breakdown HEENT: Atraumatic, PERRLA, EOMI Neck: Supple Cardiovascular: Normal S1, Normal S2 Lungs: Clear to Auscultation, Normal Air Movement Abdomen: Normal Bowel Sounds, Soft, No Tenderness Neurological: hypertonic Extremities: No Clubbing, No Cyanosis, weeping left lower leg cellulitis - tender to palpation. Erythematous chronic venous stasis changes in the right leg. Vascular: Pulses Symmetrical Current Medications: Current Medications Sig/Gumaro Start time Last Medication Dose Route Stop Time Status Admin Acetaminophen 1,000 MG Q6P PRN 12/24 1530 AC IV Aspirin Buffered 81 MG DAILY 12/25 1000 AC 12/26 PO 1344 Atorvastatin Calcium 40 MG 1700 12/24 1700 AC 12/26 PO 1854 Benzonatate 100 MG TID 12/25 1000 AC 12/26 PO 2209 Folic Acid 1 MG DAILY 12/25 1000 AC 12/25 PO 1008 Haloperidol 1 MG ONCE ONE 12/27 0130 DC 12/27 IM 12/27 013 0143 Haloperidol 0.25 MG ONE ONE 12/27 0115 CAN PO 12/27 0116 Heparin Sodium 5,000 UNIT Q8 12/24 2200 AC 12/27 (Porcine) SC 0538 Lorazepam 0 Q1P PRN 12/24 1445 DC 12/26 IV 0525 Losartan Potassium 50 MG DAILY 12/25 1056 AC 12/25 PO 1339 Midodrine 2.5 MG TIDAC PRN 12/24 1445 AC PO Multivitamins 1 TAB DAILY 12/24 144 AC 12/25 PO 1008 Ondansetron HCl 4 MG Q6P PRN 12/24 1530 AC IV Patient Medication 1 ED ONE ONE 12/26 1415 NM Teaching ED 12/26 1416 Polyethylene Glycol 17 GM DAILY 12/26 1551 AC 12/26 PO 1854 Potassium Chloride 40 MEQ ONCE ONE 12/26 1545 DC 12/26 PO 12/26 1546 1854 Potassium Chloride 40 MEQ ONCE ONE 12/26 0830 DC PO 12/26 0831 Thiamine HCl 100 MG DAILY 12/24 1441 AC 12/25 PO 1008 Trimethoprim/ 1 TAB BID 12/25 2199 AC 12/26 Sulfamethoxazole PO 220 Last 24 Hrs of Lab/[place] Results Last 24 Hrs of Labs/Mics: Laboratory Tests 12/27/16 0625: Anion Gap 9, Estimated GFR > 60, BUN/Creatinine Ratio 20.0, Magnesium 1.9, CBC w Diff NO MAN DIFF REQ, RBC 3.95 L, MCV 95.9 H, MCH 32.2 H, RDW 13.4, MPV 7.7, Gran % 63.6, Lymphocytes % 24.0, Monocytes % 8.5, Eosinophils % 3.4, Basophils % 0.5, Absolute Granulocytes 3.9, Absolute Lymphocytes 1.5, Absolute Monocytes 0.5 , Absolute Eosinophils 0.2, Absolute Basophils 0, PUBS MCHC 33.6 Assessment/Plan Assessment: 76 year old man with extensive PMH admitted for evaluation of diarrhea, urinary frequency/urgency/burning/hematuria and dry cough. Patient is reportedly normally constipated at baseline for which he started a probiotic and subsequently developed a profuse watery diarrhea. He was identified to have a urinary tract infection by his PCP for which he was provided Bactrim. Otherwise he also admits to a cough of unclear signficance, but is of great distress to the patient. He is not very functional at baseline. Imaging CT Chest/Abdomen/Pelvis colon distention with gas/stool, mild right sided hydro, fat containing left adrenal adenoma Constipation secondary to Autonomic Neuropathy Patient with history of autonomic neuropathy followed by neurologist Dr. Cali and baseline constipation seen for evaluation of profuse watery diarrhea. * Pancultures - negative blood and urine cultures. * Negative C.Diff and pending stool cultures. * Continue daily miralax therapy. * Neurology evaluated patient today - suggested mirlax daily. No additional interventions recommended. 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 * Referral to [facility] post discharge. * He had 2 loose bowel movements after removal of recatal tube -- still incontinent. * GI consulted - appreciate their recommendations. Altered mentation/lethargy * Multifactorial - constipation, Electrolyte alteration, changes in enviroment * As patient had autonomic neuropathy with features suggestive of parkinsons disease -- No antipsychotics especially typical ones. * At this point we will avoid delirium triggers in the first place. * Started on tramadol 25mg q12 PRN for agitation, Melatonin 10mg for sleep. in case if doesnt help - consider very low dose of haldol. * EKG to monitor QTc interval. * psychiatry services consutled -- appreciate their recommendations. Recent Urinary Tract Infection Patient was recently treated for urinary tract infection by his PCP this past with Bactrim. He received an additional dose of Bactrim in the ED for a positive urinalysis. * Continue Bactrim DS 1 TAB PO BID -- should be stopped soon. EtOH Dependence Patient admits to drinking 1-2 vodka drinks with shots daily. * CIWA between 0-9. * Discontinued ativan * B12/Thiamine/Folate/MV Significant Hypokalemia * Admitted with K of 2.9 * Today 4.1 -- resolved with aggressive repletion. Dry cough - worse with eating * Underwent swallow evaluation followed by barium swallow for dry cough - started on chopped, nectar thick liquids. * Upgraded diet to chopped and nectar thick -- after swallow evaulation today. Labile Blood pressure * On midodrine 2.5mg TID as needed -- Autonomic neuropathy. * Currently on Benicar 20mg at home converted to losartan here. * If patient is hypertensive - consider making him sit for some time & repeat blood pressure after 15min. * Never provide with antihypertensives in the first place as he can have very unpredictable alteration of his Blood pressure. Hypertension: Benicar. Hyperlipidemia: Atorvastatin 40mg PO Daily Atrial fibrillation s/p pacemaker: Aspirin 81mg GERD: Omeprazole on hold Pain Plan-Acetaminophen Diet- regular - chopped and nectar thick DVT PPx- Subcutaneous Heparin Code Status- FULL CODE Problem List: 1. Colon distention 2. Weakness 3. Autonomic neuropathy 4. Diarrhea 5. Hypokalemia Pain Ratin Pain Location: n/a Pain Goal: Pain 4 or less Pain Plan: tylenol prn Tomorrow's Labs & Rationales: none Consulting Request: Consulting Specialty: Gastroenterology SHREYAS RIVAS MD 12/27/16 0957: Attending MD Review Statement Attending Statement Attending MD Statement: examined this patient, discuss w/resident/PA/PLATE [employer]ER ZINC, agreed w/resident/PA/PLATE MAKER ZINC, reviewed EMR data (avail), discussed with nursing, discussed with case mgmt, amended to note Attending Assessment/Plan: Patient seen and examined. Lethargic but oriented 3. Apparently overnight he is an episode of agitation with elevated CIWA. He received Haldol of the time. Prior to that patient has been doing well with no evidence of agitation. He has remained calm since medication. On examination he is not tremulous. He is not tachycardic or tachypneic. He has no objective evidence of ongoing alcohol withdrawal. Rectal tube was discontinued yesterday on recommendations of the gastroenterology service. He has had no bowel movement since then. Abdomen is soft, nontender and appears less distended compared to presentation. Recommendations: -Continue feeding with assistance. Maintain aspiration precautions. -Continue to monitor for bowel movements. Follow-up stool for C. difficile. Patient was seen by the physical therapist service. Recommendations are for short-term rehabilitation. We will monitor patient over the next 24-48 hours for improvement in his physical condition while monitoring his bowel status. -Awaiting evaluation of the psychiatric service for management of his intermittent anxiety.
--- NOTE | 2016-12-27 07:37 | Discharge Summary ---
See Addendum Visit Information Visit Dates Admission Date: 12/24/16 Discharge Date: 12/31/2016 Hospital Course Course Attending Physician: SHREYAS RIVAS M.D Primary Care Physician: MAKENZIE CLEVELAND MD Consulting Request: Consulting Specialty: Gastroenterology Hospital Course: This is a 76-year-old man with a medical history of autonomic dysfunction, peripheral neuropathy, atrial fibrillation (not on anticoagulation) w/PPM, hypertension, dyslipidemia, GERD, alcohol abuse, multiple episodes of pneumonia, coccygeal decubitus ulcer in the past, leading bone lesions to the ribs, left adrenal nodule of 1.7 cm. The patient presented with significant colonic distention with gas and stool secondary to constipation perhaps due to underlying autonomic nervous system dysfunction. There was no signs of obstruction, given the patient was able to pass flatus and liquid stool. He was admitted to the general medicine floor and we managed him for the following conditions. Constipation secondary to Autonomic Neuropathy Patient with history of autonomic neuropathy followed by neurologist Dr. Cali and baseline constipation seen for evaluation of profuse watery diarrhea. Abdominal imaging showed colonic distention without evidence of obstruction. Patient was reviewed by GI and a rectal tube was inserted with successful bowel motions. The rectal tube was discontinued and the patient was maintained on stool softeners after which patient continued to have regular bowel motions and showed imaging evidence of a solution of the distention. Patient continued with stool incontinence during the course of the stay. He'll be discharged with instructions to continue to follow with gastric motility specialist at [facility]. Altered mentation/lethargy During the course of the stay the patient was noted to have altered mental status getting agitated especially during evening hours. The mental status was considered to be multifactorial - constipation, Electrolyte alteration, changes in enviroment. He received a dose of Ativan with subsequent more confusion after which patient was kept on Haldol when necessary for agitation. He was reviewed by the psychiatry team and through the course of the stay showed significant improvement. Recent Urinary Tract Infection Patient was recently treated for urinary tract infection by his PCP this past with Bactrim. He received an additional dose of Bactrim in the ED for a positive urinalysis. During the course of the stay the patient was continued on Bactrim. Patient completed a course of antibiotic and reported resolution of symptoms. EtOH Dependence Patient admits to drinking 1-2 vodka drinks with shots daily. Noted significant decrease about 2 weeks prior to presentation. She was initially kept on CIWA for which she scored low with the exception of one episode CIWA score of 9. Per spouse patient not taking significant amount of alcohol. Hypokalemia Patient presented with potassium level of 2.9. He received IV and oral supplementation with complete resolution of hypokalemia. Prior to discharge potassium level had gone back to normal level of 4.1. Dry cough - worse with eating Patient is observed to be coughing during eating because of which aspiration was suspected. He underwent swallow evaluation followed by barium swallow for dry cough - started on puree diet, nectar thick liquids. After subsequent review was upgraded to chopped and nectar thick. Per speech therapist evaluation the patient is being discharged on chopped diet and nectar thick liquids. Will benefit from subsequent to review of swallowing and possible change in food consistency in the near future. Labile Blood pressure Patient is on midodrine 2.5mg TID as needed -- Autonomic neuropathy. He also takes Benicar 20mg at home converted to losartan during the course of the stay. Initially on presentation blood pressure was in the higher side but stabilized during the course of the stay. Patient will be discharged on his home medications Complications: None Allergies: Coded Allergies: lorazepam (Intermediate, HALUCINATIONS, AGITATION 12/26/16) Significant Procedures: Modified barium swallow: 1. Silent penetration and aspiration of contrast is seen with thin liquids. 2. Pooling of contrast is noted within the valleculae with all consistencies. 3. Speech pathologist assessment issued separately. Abdominopelvic CT scan 1. There is significant colonic distention with gas and stool, with possible transition point at the sigmoid. Underlying mucosal lesion is not excluded. This could be more fully evaluated with a barium enema, if clinically indicated. Underlying diverticulitis is not seen. There is no associated pathologic small bowel dilatation, suggesting a competent ileocecal valve. No free intraperitoneal air or abscess is seen. 2. There is mild hydronephrosis superimposed upon a chronic right extrarenal pelvis. There are right renal calculi, and an 11 mm calculus is seen within the right renal pelvis. No right ureterectasis is seen. 3. No left renal calculus or hydronephroureter is seen. 4. A small benign, fat-containing left adrenal adenoma is incidentally noted. 5. There is borderline aneurysmal dilatation of the ascending thoracic aorta. 6. There are minimal emphysematous changes. 7. Skeletal findings suggest possible DISH. Pertinent Lab Results: Laboratory Tests 12/27 0625 Chemistry Sodium (137 - 145 mmol/L) 141 Potassium (3.5 - 5.1 mmol/L) 4.1 Chloride (98 - 107 mmol/L) 108 H Carbon Dioxide (22 - 30 mmol/L) 24 Anion Gap (5 - 16) 9 BUN (9 - 20 mg/dL) 20 Creatinine (0.7 - 1.2 mg/dL) 1.0 Estimated GFR (>60 ml/min) > 60 BUN/Creatinine Ratio (7 - 25 %) 20.0 Magnesium (1.6 - 2.3 mg/dL) 1.9 Hematology CBC w Diff NO MAN DIFF REQ WBC (4.8 - 10.8 /CUMM) 6.1 RBC (4.70 - 6.10 /CUMM) 3.95 L Hgb (14.0 - 18.0 G/DL) 12.8 L Hct (42 - 52 %) 37.9 L MCV (80.0 - 94.0 FL) 95.9 H MCH (27.0 - 31.0 PG) 32.2 H RDW (11.5 - 14.5 %) 13.4 Plt Count (130 - 400 /CUMM) 159 MPV (7.4 - 10.4 FL) 7.7 Gran % (42.2 - 75.2 %) 63.6 Lymphocytes % (20.5 - 51.1 %) 24.0 Monocytes % (1.7 - 9.3 %) 8.5 Eosinophils % (0 - 5 %) 3.4 Basophils % (0.0 - 2.0 %) 0.5 Absolute Granulocytes (1.4 - 6.5 /CUMM) 3.9 Absolute Lymphocytes (1.2 - 3.4 /CUMM) 1.5 Absolute Monocytes (0.10 - 0.60 /CUMM) 0.5 Absolute Eosinophils (0.0 - 0.7 /CUMM) 0.2 Absolute Basophils (0.0 - 0.2 /CUMM) 0 PUBS MCHC (33.0 - 37.0 G/DL) 33.6 Disposition Summary Disposition Principal Diagnosis: Hypokalemia Chronic constipation Agitation Additional Diagnosis: Autonomic dysfunction Hypertension Atrial fibrillation not on anticoagulation Discharge Disposition: SNF Discharge Instructions General Discharge Information Code Status: Full Code Patient's Diet: Heart [employer] Diagnostics diet Patient's Activity: As tolerated Follow-Up Instructions/Appts: Please call and make a follow-up with her primary care physician within one week after discharge Please make an appointment and follow-up with gastric motility specialist at [facility] Medications at Discharge Discharge Medications: Stop taking the following medications: Sulfamethoxazole/Trimethoprim (Sulfamethoxazole-Tmp Ds Tablet) 800 MG-160 MG TABLET ORAL TWICE DAILY Qty = 14 Continue taking these medications: Aspirin (Lo-Dose Aspirin EC) 81 MG TABLET. 1 Tablet ORAL DAILY Comments: Last Taken: 12/31/16 Time: 10:30 AM Rosuvastatin Calcium (Crestor) 10 MG TABLET 1 Tablet ORAL DAILY Qty = 90 Comments: NOT TAKEN IN HOSPITAL, ATORVISTATIN USED INSTEAD. Last Taken: 12/30/16 Time: 5:00 PM Olmesartan Medoxomil (Benicar) 20 MG TABLET 1 Tablet ORAL DAILY Comments: NOT TAKEN IN HOSPITAL Omeprazole Magnesium (Omeprazole Magnesium) 20 MG CAPSULE. 2 Capsule ORAL TWICE DAILY Comments: NOT TAKEN IN HOSPITAL Cyanocobalamin (Vitamin B-12) 1,000 MCG TABLET 1 Tablet ORAL DAILY Comments: Last Taken: 12/31/16 Time: 10:30 AM Lactobacillus Acidophilus (Probiotic) 10 BILLION CELL CAPSULE 1 Capsule ORAL DAILY Comments: NOT TAKEN IN HOSPITAL Midodrine HCl (Midodrine HCl) 2.5 MG TABLET 1 Tablet ORAL 3 TIMES DAILY BEFORE MEALS as needed for LOW BLOOD PRESSURE Qty = 90 Comments: NOT TAKEN IN HOSPITAL Start taking the following new medications: Trazodone HCl (Trazodone HCl) 50 MG TABLET 25 Milligram ORAL TWICE DAILY as needed for ANXIETY/AGITATION/INSOMNIA Qty = 30 No Refills Comments: NOT TAKEN IN HOSPITAL Polyethylene Glycol 3350 (Miralax) 17 GRAM POWD.PACK 1 Packet ORAL DAILY Qty = 30 No Refills Instructions: dissolve in water Comments: Last Taken: 12/31/16 Time: 10:30 AM Melatonin (Melatonin) 10 MG CAPSULE 1 Tablet ORAL AT BEDTIME Qty = 30 No Refills Comments: Last Taken: 12/29/16 Time: 9:00 PM Sennosides/Docusate Sodium (Docusate Sodium-Senna Tablet) 8.6 MG-50 MG TABLET 2 Tablet ORAL TWICE DAILY Qty = 20 No Refills Comments: Last Taken: 12/30/16 Time: 1:00 PM Copies To: SATURNINO YEN,ARJUN Fernandez; CRISTOFER YEN,MAKENZIE; SRUTHI YEN,JAILYN Fernandez Attending MD Review Statement Documenting Attending: SHREYAS RIVAS M.D Other Findings: I have reviewed the discharge summary
[2016-12-27 07:58] LABS: ABSOLUTE BASOPHIL COUNT 0 /CUMM (0.0-0.2); ABSOLUTE EOSINOPHIL COUNT 0.2 /CUMM (0.0-0.7); ABSOLUTE GRANULOCYTE CT 3.9 /CUMM (1.4-6.5); ABSOLUTE LYMPH COUNT 1.5 /CUMM (1.2-3.4); ABSOLUTE MONOCYTE COUNT 0.5 /CUMM (0.10-0.60); BASOPHIL % 0.5 % (0.0-2.0); EOSINOPHIL % 3.4 % (0-5); GRANULOCYTE % 63.6 % (42.2-75.2); HEMATOCRIT 37.9 % (42-52); MEAN CORPUSCULAR HGB 32.2 PG (27.0-31.0); MEAN CORPUSCULAR HGB CONC 33.6 G/DL (33.0-37.0); MEAN CORPUSCULAR VOLUME 95.9 FL (80.0-94.0); MEAN PLATELET VOLUME 7.7 FL (7.4-10.4); PLATELET COUNT 159 /CUMM (130-400); RBC DISTRIBUTION WIDTH 13.4 % (11.5-14.5); RED BLOOD CELL CT 3.95 /CUMM (4.70-6.10); WHITE BLOOD CELL COUNT 6.1 /CUMM (4.8-10.8)
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
--- NOTE | 2016-12-27 10:59 | PN- Student ---
Subjective Subjective: Patient was seen and examined this morning. His breakfast was sitting at bedside and untouched, stating that he was not hungry. He says he "hates this place" right now due to his discomfort and incontinence. Patient desire to get out of bed today and walk around with assistence. He mentions having "hard tremors" overnight for which he was given one dose of "some medication". was not present for morning rounds today. Patient otherwise denies numbness, tingling, headache, fever, dysarthria, dysphagia, SOB, palpitations. Objective Objective: Vital Signs Date Time Temp Pulse Resp B/P B/P Pulse O2 O2 Flow FiO2 Mean Ox Delivery Rate 12/27 1054 97.6 97 18 140/60 95 12/27 0600 97.6 95 20 150/90 12/27 0401 97.6 95 20 150/90 94 Room Air 12/27 0400 97.6 95 20 150/90 12/27 0115 97.6 93 20 120/60 12/27 0106 97.6 93 20 120/60 95 Room Air 12/27 0000 97.6 93 20 120/60 12/27 0000 95 Room Air 12/26 2200 97.9 83 20 128/60 12/26 2000 97.9 83 20 128/60 12/26 1952 97.8 77 20 124/70 94 Room Air 12/26 1800 97.9 83 20 128/60 12/26 1600 98.2 80 20 120/60 12/26 1559 97.9 83 20 128/60 95 Room Air 12/26 1409 98.2 80 20 120/60 98 /10 1343 Room Air Room Air 12/26 1150 99.2 80 20 130/80 96 Intake & Output 12/27 1600 12/27 0800 12/27 0000 Intake Total 240 240 Output Total Balance 240 240 Intake, Oral 240 240 Physical exam: General- well-nourished, well-appearing elderly male in NAD HEENT- NCAT, PERRL, EOMI Cardio- Normal S1 & S2; irregular rhythm Resp- CTA bilateraly Abdomen- mildly distended, normal bowel sounds Extremities- no clubbing/cyanosis/edema Results Results: Laboratory Tests 12/27/16 0625: Anion Gap 9, Estimated GFR > 60, BUN/Creatinine Ratio 20.0, Magnesium 1.9, CBC w Diff NO MAN DIFF REQ, RBC 3.95 L, MCV 95.9 H, MCH 32.2 H, RDW 13.4, MPV 7.7, Gran % 63.6, Lymphocytes % 24.0, Monocytes % 8.5, Eosinophils % 3.4, Basophils % 0.5, Absolute Granulocytes 3.9, Absolute Lymphocytes 1.5, Absolute Monocytes 0.5 , Absolute Eosinophils 0.2, Absolute Basophils 0, PUBS MCHC 33.6 12/26/16 0625: Anion Gap 8, Estimated GFR > 60, BUN/Creatinine Ratio 20.0, Magnesium 1.8 12/25/16 0655: Anion Gap 8, Estimated GFR > 60, BUN/Creatinine Ratio 25.5 H, Magnesium 1.8 12/24/16 1955: Anion Gap 8, Estimated GFR 59 L, BUN/Creatinine Ratio 28.3 H, Magnesium 1.9 12/24/16 1207: Lactic Acid Cancelled 12/24/16 1112: Urine Color YEL, Urine Clarity CLEAR, Urine pH 6.0, Ur Specific [place] >= 1.030 , Urine Protein 30 H, Urine Ketones NEG, Urine Nitrite NEG, Urine Bilirubin NEG , Urine Urobilinogen 1.0, Ur Leukocyte Esterase SMALL H, Ur Microscopic SEDIMENT EXAMINED, Urine RBC 50-75 H, Urine WBC 15-25 H, Ur Epithelial Cells RARE, Urine Bacteria FEW H, Hyaline Casts 1-3 H, Urine Mucus MANY H, Urine Hemoglobin MOD H, Urine Glucose NEG Microbiology 12/26 1400 STOOL: Clostridium difficile Toxin A & B - RES 12/26 1400 STOOL: Stool Culture - RES 12/24 1532 STOOL: Clostridium difficile Toxin A & B - CAN Cancelled: SPECIMEN NOT RECEIVED IN LABORATORY 12/24 1112 URINE ROUT: Urine Culture - COMP Assessment/Plan Assessment: Mr. Nielsen is a 76 year old male with a past medical history significant for Atrial fibrilation s/p pacemaker not on anti-coagulation, autonomic neuropathy, alcohol dependence, HTN, hyperlipidemia, GERD seen for evaluation of dysuria, dry cough and diarrhea. Patient received Bactrim from PCP for a suspected UTI after which he developed watery diarrhea. Around the same time of receiving Bactrim, patient started taking a new probiotic. Constipation secondary to autonomic neuropathy -C. Diff and stool cultures pending -As per GI/Neuro evaluation, patient was started on Miralax -rectal tube removed; x-ray later today -refer to [facility] Urinary tract infection -Continue Bactrim Altered mentation/confusion/lethary -MEHRAN d/c'ed, tremors likely due to delerium as they only appear overnight and not through the day -B12/Thiamine/Folate DVT ppx- SC Heparin Code status- FULL CODE
--- NOTE | 2016-12-27 16:31 | RADIOLOGY REPORT ---
EXAMINATION: XR ABDOMEN MULTIPLE VIEWS CLINICAL INDICATION: 76-year-old male, for follow-up of fecal impaction. COMPARISON: Abdominal radiograph done on 12/25/2016. TECHNIQUE: Supine and upright frontal view of the abdomen and pelvis, total of 5 images. FINDINGS: Extensive fecal residual is noted throughout the entire large bowel. Previously documented rectal tube is no longer visualized. There is no abnormal bowel dilatation, air-fluid levels suggestive of superimposed obstruction present. There is no free intraperitoneal air identified to suspect perforation. Previously documented intraluminal contrast within the stomach and proximal small bowel loops are no longer present. IMPRESSION: Extensive fecal residual is noted throughout the entire large bowel. No rectal tube is visualized. No radiographic evidence of superimposed bowel obstruction or perforation.
[2016-12-28 06:30] VITALS: BP 132/78
--- NOTE | 2016-12-28 07:10 | PN- Housestaff ---
JESSICA YEN,BHAVESH 12/28/16 0710: Subjective Follow-up For: Constipation secondary to autonomic neuropathy Fecal incontinence Subjective: I saw and examined the patient today morning He is doing much better. Having breakfast, able to move his extremities still had some tremors. Had a single bowel movement yesterday - still incontinent. Reports urinating well - continent. Wants to work with physical therapy. Review of Systems Constitutional: Reports: see HPI. Comments: ROS negative except the above. Objective Last 24 Hrs of Vital Signs/I&O Vital Signs Date Time Temp Pulse Resp B/P B/P Pulse O2 O2 Flow FiO2 Mean Ox Delivery Rate 12/28 0630 97.9 67 20 132/78 94 Room Air 12/28 0000 96 Room Air 12/27 2237 98.5 82 20 170/90 95 Room Air 12/27 1349 97.7 77 20 125/80 96 12/27 1346 Room Air Room Air 12/27 1344 Room Air Room Air 12/27 1116 Room Air Room Air 12/27 1110 Room Air Room Air 12/27 1054 97.6 97 18 140/60 95 Intake & Output 12/28 0800 12/28 0000 12/27 1600 Intake Total 200 240 250 Output Total 550 Balance 200 240 -300 Intake, Oral 200 240 250 Number 3 2 Bowel Movements Output, Urine 550 Physical Exam General Appearance: Alert, Oriented X3, Cooperative, No Acute Distress Skin: No Rashes, No Breakdown HEENT: Atraumatic, PERRLA, EOMI Neck: Supple Cardiovascular: Normal S1, Normal S2 Lungs: Clear to Auscultation, Normal Air Movement Abdomen: Normal Bowel Sounds, Soft, No Tenderness Extremities: No Clubbing, No Cyanosis, 2+ edema present Vascular: Pulses Symmetrical Current Medications: Current Medications Sig/Gumaro Start time Last Medication Dose Route Stop Time Status Admin Acetaminophen 1,000 MG Q6P PRN 12/24 1530 AC IV Aspirin Buffered 81 MG DAILY 12/25 1000 AC 12/27 PO 1106 Atorvastatin Calcium 40 MG 1700 12/24 1700 AC 12/27 PO 1650 Benzonatate 100 MG TID 12/25 1000 AC 12/27 PO 2200 Folic Acid 1 MG DAILY 12/25 1000 AC 12/27 PO 1106 Heparin Sodium 5,000 UNIT Q8 12/24 2200 AC 12/28 (Porcine) SC 0531 Losartan Potassium 50 MG DAILY 12/25 1056 AC 12/27 PO 1106 Melatonin 10 MG AT BEDTIME NEED.. 12/27 1100 AC 12/27 PO 2200 Midodrine 2.5 MG TIDAC PRN 12/24 1445 AC PO Multivitamins 1 TAB DAILY 12/24 1441 AC 12/27 PO 1105 Ondansetron HCl 4 MG Q6P PRN 12/24 1530 AC IV Patient Medication 1 ED .STK-MED ONE 12/27 1400 DC Teaching ED 12/27 1401 Polyethylene Glycol 17 GM DAILY 12/26 1551 AC 12/27 PO 1106 Thiamine HCl 100 MG DAILY 12/24 1441 AC 12/27 PO 1105 Trazodone HCl 25 MG BID PRN 12/27 1630 AC PO Trimethoprim/ 1 TAB BID 12/25 220 AC 12/27 Sulfamethoxazole PO 1106 Assessment/Plan Assessment: 76 year old man with extensive PMH admitted for evaluation of diarrhea, urinary frequency/urgency/burning/hematuria and dry cough. Patient is reportedly normally constipated at baseline for which he started a probiotic and subsequently developed a profuse watery diarrhea. He was identified to have a urinary tract infection by his PCP for which he was provided Bactrim. Otherwise he also admits to a cough of unclear signficance, but is of great distress to the patient. He is not very functional at baseline. Imaging CT Chest/Abdomen/Pelvis colon distention with gas/stool, mild right sided hydro, fat containing left adrenal adenoma Constipation secondary to Autonomic Neuropathy Patient with history of autonomic neuropathy followed by neurologist Dr. Cali and baseline constipation seen for evaluation of profuse watery diarrhea. * Negative cultures. * Continue daily miralax therapy. * Neurology evaluated patient today - suggested mirlax daily. No additional interventions recommended. 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 * Referral to [facility] post discharge. * GI consulted - appreciate their recommendations. Altered mentation/lethargy * Multifactorial - constipation, Electrolyte alteration, changes in enviroment * As patient had autonomic neuropathy with features suggestive of parkinsons disease -- No antipsychotics especially typical ones. * At this point we will avoid delirium triggers in the first place. * Started on tramadol 25mg q12 PRN for agitation, Melatonin 10mg for sleep. in case if doesnt help - consider very low dose of haldol. * EKG to monitor QTc interval - 460. * psychiatry services consutled -- appreciate their recommendations. Recent Urinary Tract Infection Patient was recently treated for urinary tract infection by his PCP this past with Bactrim. He received an additional dose of Bactrim in the ED for a positive urinalysis. * Continue Bactrim DS 1 TAB PO BID EtOH Dependence Patient admits to drinking 1-2 vodka drinks with shots daily. * CIWA between 0-9. * Discontinued ativan * B12/Thiamine/Folate/MV Significant Hypokalemia * Admitted with K of 2.9 * Today 4.1 -- resolved with aggressive repletion. Dry cough - worse with eating * Underwent swallow evaluation followed by barium swallow for dry cough - started on chopped, nectar thick liquids. * Upgraded diet to chopped and nectar thick -- after swallow evaulation. * Mucinex BID. Labile Blood pressure * On midodrine 2.5mg TID as needed -- Autonomic neuropathy. * Currently on Benicar 20mg at home converted to losartan here. * If patient is hypertensive - consider making him sit for some time & repeat blood pressure after 15min. * Never provide with antihypertensives in the first place as he can have very unpredictable alteration of his Blood pressure. Hypertension: Benicar. Hyperlipidemia: Atorvastatin 40mg PO Daily Atrial fibrillation s/p pacemaker: Aspirin 81mg GERD: Omeprazole on hold Pain Plan-Acetaminophen Diet- regular - chopped and nectar thick DVT PPx- Subcutaneous Heparin Code Status- FULL CODE Problem List: 1. Autonomic neuropathy 2. Hypokalemia 3. Diarrhea Pain Ratin Pain Location: n/a Pain Goal: Pain 4 or less Pain Plan: tylenol prn Tomorrow's Labs & Rationales: bep to monitor potassium Consulting Request: Consulting Specialty: Gastroenterology SHREYAS RIVAS MD 12/28/16 1158: Attending MD Review Statement Attending Statement Attending MD Statement: examined this patient, discuss w/resident/PA/SUCTION OPERATOR, agreed w/resident/PA/SUCTION OPERATOR, discussed with family, reviewed EMR data (avail), discussed with nursing, discussed with case mgmt, amended to note Attending Assessment/Plan: Patient seen and examined. Resting comfortably not in any acute distress. No issues overnight. He is alert and oriented 3. Conversing appropriately. He has been having bowel movements since yesterday. Repeat x-ray showed no colonic dilation yesterday. On examination abdomen is soft and nontender with normal bowel sounds. His delirium has resolved. His delirium was most likely triggered by his hospitalization and ongoing medical condition. Recommendations: -Patient medically stable to be discharged to senior care facility once a bed is available. -He is to follow-up with the gastroenterology motility service at [facility]. -He'll be discharged on melatonin and trazodone to use when necessary. -He'll be discharged on MiraLAX to use daily, he should use Colace as needed for constipation. -Patient is to complete his Bactrim which he was started on as an outpatient for his UTI.
--- NOTE | 2016-12-28 09:46 | PN- Psychiatry ---
Assessment/Plan Impression: Identifying Info: 76-year-old male with brought in by ambulance to [facility] emergency department on 12/24/2016 with chief complaint of weakness, diarrhea, and hematuria. Admitted to medicine, consult ordered for confusion and agitation at nighttime. SUBJECTIVE Describes feeling "great," this AM. Reports difficulty eating his breakfast due to not having his glasses, reports his again brought them home overnight. No complaints. Brief ROS Gait: Not observed Sleep: Improved, adequate Appetite: Adequate OBJECTIVE Mental Status Exam Presentation/Appearance: Cooperative with evaluation. Hospital garb. Calm. Lying in bed. Orientation: Oriented to self, place, situation, and month/year but not day Sensorium: Somnolent Eye contact: Poor but improved Affect: Flat, pt eyes closed throughout interview Mood: "Great" Depression: Denies Anxiety: Denies Thought Content: - Denies SI/HI, AH/VH, PI. States and also believes they will not kill themselves. - Denies Hopeless/Helpless Thoughts Thought Process: Linear at present Associations: Appropriate Judgment: Intact at present Insight: Intact at present Cognition: Memory: Short-term deficits endorsed, long-term more intact Attention/Concentration: Grossly intact Fund of Knowledge: Adequate Abstractions:[place] MMSE: Did not assess Per nursing report no acute confusional events overnight and patient slept well. ASSESSMENT 76-year-old male with a history of at least one known confusional episode presents with intermittent confusion occurring during the night starting during hospitalization 2 nights ago. This is likely multifactorial and attributable to constipation, mild electrolyte abnormalities, sleep disturbance, changes in environment, and possibly alcohol withdrawal or residual symptoms from his recent UTI. Now with adequate sleep symptoms did not reemerge last night. Differential diagnosis Delirium, mild, due to multiple etiologies Rule out unspecified neurocognitive disorder Alcohol use disorder Suggestion: 1. Please continue to avoid benzodiazepines, opioid analgesics, and meds with strong anticholinergic properties as much as possible to prevent further confusion. 2. Please initiate the following nonpharmacologic interventions: -Avoid nursing and medical procedures during sleep hours whenever possible - Cluster at night interventions that must be completed as much as possible to minimize sleep disruption - Decrease noise patient area during sleeping hours - Reduce lighting at night - Ensure patient has any sensory aids close by that he regularly uses 3. Due to history of Parkinsonian features as well as age, the patient is a poor candidate for antipsychotic medication especially typical antipsychotics and they should be avoided as much as possible. 4. Please continue vitamin supplementation, melatonin, and trazodone as currently ordered. The patient will likely not require trazodone once discharged. Thank you for including psychiatry in this case we'll continue to follow only on an as-needed basis. Please page 100 for additional assistance. Subjective Subjective: as above Objective Last 24 Hrs of Vital Signs/I&O Current Medications Sig/Gumaro Start time Last Medication Dose Route Stop Time Status Admin Acetaminophen 1,000 MG Q6P PRN 12/24 1530 AC IV Aspirin Buffered 81 MG DAILY 12/25 1000 AC 12/27 PO 1106 Atorvastatin Calcium 40 MG 1700 12/24 1700 AC 12/27 PO 1650 Benzonatate 100 MG TID 12/25 1000 AC 12/27 PO 2200 Folic Acid 1 MG DAILY 12/25 1000 AC 12/27 PO 1106 Heparin Sodium 5,000 UNIT Q8 12/24 2200 AC 12/28 (Porcine) SC 0531 Losartan Potassium 50 MG DAILY 12/25 1056 AC 12/27 PO 1106 Melatonin 10 MG AT BEDTIME NEED.. 12/27 1100 AC 12/27 PO 2200 Midodrine 2.5 MG TIDAC PRN 12/24 1445 AC PO Multivitamins 1 TAB DAILY 12/24 1441 AC 12/27 PO 1105 Ondansetron HCl 4 MG Q6P PRN 12/24 1530 AC IV Patient Medication 1 ED .STK-MED ONE 12/27 1400 DC Teaching ED 12/27 1401 Polyethylene Glycol 17 GM DAILY 12/26 1551 AC 12/27 PO 1106 Thiamine HCl 100 MG DAILY 12/24 1441 AC 12/27 PO 1105 Trazodone HCl 25 MG BID PRN 12/27 1630 AC PO Trimethoprim/ 1 TAB BID 12/25 2200 AC 12/27 Sulfamethoxazole PO 1106 Vital Signs Date Time Temp Pulse Resp B/P B/P Pulse O2 O2 Flow FiO2 Mean Ox Delivery Rate 12/28 629 97.9 67 20 132/78 94 Room Air 12/28 0000 96 Room Air 12/27 2237 98.5 82 20 170/90 95 Room Air 12/27 1349 97.7 77 20 125/80 96 12/27 1346 Room Air Room Air 12/27 1344 Room Air Room Air 12/27 1116 Room Air Room Air 12/27 1110 Room Air Room Air 12/27 1054 97.6 97 18 140/60 95 Intake & Output 12/28 1600 12/28 0800 12/28 0000 Intake Total 200 240 Output Total Balance 200 240 Intake, Oral 200 240 Number 3 Bowel Movements
--- NOTE | 2016-12-28 13:53 | PN- Student ---
Subjective Subjective: Patient was seen and examined this morning. He was sitting comfortably in his bed and reports having the best night of sleep since he has been in the hospital. Patient also reports not having any tremors or sweating overnight. He says he does recall at least one bowel movement overnight but admits to being groggy and not completely sure when it happened. Patient also complains of persistent dry coughing episodes that come and go. Otherwise denies any subjective fevers, chills, nausea, vomiting, chest pain, palpitations, SOB, numbness, tingling. Objective Objective: Vital Signs Date Time Temp Pulse Resp B/P B/P Pulse O2 O2 Flow FiO2 Mean Ox Delivery Rate 12/28 1032 68 132/76 12/28 0630 97.9 67 20 132/78 94 Room Air 12/28 0000 96 Room Air 12/27 2237 98.5 82 20 170/90 95 Room Air Intake & Output 12/28 1600 12/28 0800 12/28 0000 Intake Total 200 240 Output Total Balance 200 240 Intake, Oral 200 240 Number 3 Bowel Movements Physical exam: General- well-appearing, well-nourished elderly male in no acute distress HEENT- NCAT, PERRL, EOMI Cardio- normal S1 & S2; irregular rhythm Respiratory- CTA bilaterally Abdomen- mildly distended, mildly rigid in lower quadrants; normal sounding bowel sounds Extremities- no clubbing/cyanosis/edema Results Results: Laboratory Tests 12/27/16 0625: Anion Gap 9, Estimated GFR > 60, BUN/Creatinine Ratio 20.0, Magnesium 1.9, CBC w Diff NO MAN DIFF REQ, RBC 3.95 L, MCV 95.9 H, MCH 32.2 H, RDW 13.4, MPV 7.7, Gran % 63.6, Lymphocytes % 24.0, Monocytes % 8.5, Eosinophils % 3.4, Basophils % 0.5, Absolute Granulocytes 3.9, Absolute Lymphocytes 1.5, Absolute Monocytes 0.5 , Absolute Eosinophils 0.2, Absolute Basophils 0, PUBS MCHC 33.6 12/26/16 0625: Anion Gap 8, Estimated GFR > 60, BUN/Creatinine Ratio 20.0, Magnesium 1.8 Microbiology 12/26 1400 STOOL: Clostridium difficile Toxin A & B - RES 12/26 1399 STOOL: Stool Culture - RES Assessment/Plan Assessment: Mr. Nielsen is a 76 year old male with a past medical history significant for Atrial fibrilation s/p pacemaker not on anti-coagulation, autonomic neuropathy, alcohol dependence, HTN, hyperlipidemia, GERD seen for evaluation of dysuria, dry cough and diarrhea. Patient received Bactrim from PCP for a suspected UTI after which he developed watery diarrhea. Around the same time of receiving Bactrim, patient started taking a new probiotic. Constipation secondary to autonomic neuropathy -C. Diff and stool cultures were negative -xray revealed no distention, just impacted stool throughout large bowel. Continue bowel regimen -refer to [facility] -possible discharge to [facility] later today pending availability Urinary tract infection -Continue Bactrim PO Altered mentation/confusion/lethary -MEHRAN d/c'ed, tremors likely due to delerium as they only appear overnight and not through the day -B12/Thiamine/Folate DVT ppx- SC Heparin Code status- FULL CODE
[2016-12-28 15:32] VITALS: BP 120/70
[2016-12-28] MEDS ORDERED: MIRALAX17 G1 PO (15:33)
[2016-12-28] MEDS ORDERED: COLACE100 M1 PO (15:33)
--- NOTE | 2016-12-28 15:38 | Patient Discharge Instructions ---
Discharge Instructions General Discharge Information You were seen/treated for: Constipation secondary to autonomic neuropathy Watch for these problems: Lack of bowel movement for more than 1 week please call back GI specialist Special Instructions: Please follow up with your PCP in aweek Please follow up with [facility] -- try to get an appointment in a week if possible Please follow up with your neurologist Karely Flynn at [facility] Diet Continue normal diet: Yes Recommended Diet: high fiber diet Acute Coronary Syndrome Inclusion Criteria At DC or during hospital stay patient has or had the following: ACS DIAGNOSIS No Discharge Core Measures Meds if any: Prescribed or Continued at Discharge Meds if any: NOT Prescribed or Continued at Discharge Congestive Heart Failure Inclusion Criteria At DC or during hospital stay patient has or had the following: CHF DIAGNOSIS No Discharge Core Measures Meds if any: Prescribed or Continued at Discharge Meds if any: NOT Prescribed or Continued at Discharge Cerebrovascular accident Inclusion Criteria At DC or during hospital stay patient has or had the following: CVA/TIA Diagnosis No Discharge Core Measures Meds if any: Prescribed or Continued at Discharge Meds if any: NOT Prescribed or Continued at Discharge Venous thromboembolism Inclusion Criteria VTE Diagnosis No VTE Type NONE VTE Confirmed by (Test) NONE Discharge Core Measures - Per Current guidelines, there needs to be overlap - treatment for the first 5 days of Warfarin therapy. - If discharged on Warfarin prior to 5 days of - overlap therapy, the patient will need to be - assessed for post discharge needs including - *Post discharge parental anticoagulation - *Warfarin and/or parental anticoagulation education - *Follow up date to check INR post discharge At least 5 days overlap therapy as Inpatient No Meds if any: Prescribed or Continued at Discharge Note: Overlap Therapy is Warfarin and Anticoagulant Meds if any: NOT Prescribed or Continued at Discharge
--- NOTE | 2016-12-28 16:15 | NUR ---
DURING BEDSIDE REPORT, PTS STATING CONCERNS SHE HAS FOR PT BEFORE HE IS DISCHARGED. PTS STATING PT STILL HAS A BAD COUGH THAT BOTHERS HIM AND ISN'T GOING AWAY. PTS ALSO STATING THAT THE PT HAD A BM WITH CLEAR MUCOUS IN IT. MD OSPINA MADE AWARE. MEDICAL STUDENT IN TO SPEAK WITH PT & . WILL CONTINUE TO MONITOR.
--- NOTE | 2016-12-28 16:52 | NUR ---
PT NOTED TO HAVE SMALL SMEAR OF CLEAR MUCOUS LIKE SUBSTANCE ON BRIEF. NO BM NOTED. BROOMCORN SCRAPER BHAVESH NOTIFIED. WILL CONTINUE TO MONITOR.
[2016-12-28 22:35] VITALS: BP 124/74
--- NOTE | 2016-12-29 07:48 | PN- Housestaff ---
JESSICA YEN,BHAVESH 12/29/16 0748: Subjective Follow-up For: Chronic constipation secondary to autonomic neuropathy Subjective: I saw and examined the patient today morning Overnight He had an episode of urinary incontinence -- unable to call the nurse but manged to make a call to his reporting he is confused. he is lying in the bed, reports that he is not feeling as good as yesterday. he didnt have a bowel movement for the past 2days, abdomen is disteded. He was little drowsy might be secondary to mucinex started yesterday. We discontinued it today. at bedside, reports he does have some tremors occasionally at rest. Concerned about mucosy discharge from his bowel. No fevers, chills. She claims that she is not very comfortable to get discharged today. Review of Systems Constitutional: Reports: see HPI. Comments: ROS negative except the above. Objective Last 24 Hrs of Vital Signs/I&O Vital Signs Date Time Temp Pulse Resp B/P B/P Pulse O2 O2 Flow FiO2 Mean Ox Delivery Rate 12/28 2235 97.9 72 20 124/74 95 Room Air 12/28 1532 97.9 72 20 120/70 97 12/28 1032 68 132/76 Intake & Output 12/29 0800 12/29 0000 12/28 1600 Intake Total 600 1080 Output Total 250 125 Balance 350 955 Intake, Oral 600 1080 Output, Urine 250 125 Physical Exam General Appearance: Alert, Oriented X3, Cooperative, No Acute Distress Skin: No Rashes, No Breakdown HEENT: Atraumatic, PERRLA, EOMI Neck: Supple Cardiovascular: Normal S1, Normal S2 Lungs: Clear to Auscultation, Normal Air Movement Abdomen: Normal Bowel Sounds, Soft, No Tenderness, bloated Neurological: Normal Speech, Sensation Intact Extremities: No Clubbing, No Cyanosis, 2+ edema present Vascular: Pulses Symmetrical Current Medications: Current Medications Sig/Gumaro Start time Last Medication Dose Route Stop Time Status Admin Acetaminophen 1,000 MG Q6P PRN 12/24 1530 AC IV Aspirin Buffered 81 MG DAILY 12/25 1000 AC 12/28 PO 1032 Atorvastatin Calcium 40 MG 1700 12/24 1700 AC 12/28 PO 1722 Benzonatate 100 MG TID 12/25 1000 AC 12/28 PO 205 Docusate Sodium 100 MG DAILY NEEDED PRN 05/12 1345 AC PO Folic Acid 1 MG DAILY 12/25 1000 AC 12/28 PO 1033 Guaifenesin 600 MG Q12 12/28 2200 AC 12/28 PO 2052 Heparin Sodium 5,000 UNIT Q8 12/24 220 AC 12/29 (Porcine) SC 0547 Losartan Potassium 50 MG DAILY 12/25 1056 AC 12/28 PO 1032 Melatonin 10 MG AT BEDTIME NEED.. 12/27 1100 AC 12/28 PO 2053 Midodrine 2.5 MG TIDAC PRN 12/24 1445 AC PO Multivitamins 1 TAB DAILY 12/24 144 AC 12/28 PO 103 Ondansetron HCl 4 MG Q6P PRN 12/24 1530 AC IV Patient Medication 1 ED .STK-MED ONE 12/28 1357 OK Teaching ED 12/28 135 Polyethylene Glycol 17 GM DAILY 12/26 1551 AC 12/28 PO 103 Thiamine HCl 100 MG DAILY 12/24 1441 AC 12/28 PO 103 Trazodone HCl 25 MG BID PRN 12/27 1630 AC PO Trimethoprim/ 1 TAB BID 12/25 2199 AC 12/28 Sulfamethoxazole PO 2052 Last 24 Hrs of Lab/[place] Results Last 24 Hrs of Labs/Mics: Microbiology 12/28 193 STOOL: Stool Culture - CAN Cancelled: DUPLICATE Assessment/Plan Assessment: 76 year old man with extensive PMH admitted for evaluation of diarrhea, urinary frequency/urgency/burning/hematuria and dry cough. Patient is reportedly normally constipated at baseline for which he started a probiotic and subsequently developed a profuse watery diarrhea. He was identified to have a urinary tract infection by his PCP for which he was provided Bactrim. Otherwise he also admits to a cough of unclear signficance, but is of great distress to the patient. He is not very functional at baseline. Imaging CT Chest/Abdomen/Pelvis colon distention with gas/stool, mild right sided hydro, fat containing left adrenal adenoma Constipation secondary to Autonomic Neuropathy Patient with history of autonomic neuropathy followed by neurologist Dr. Cali and baseline constipation seen for evaluation of profuse watery diarrhea. * Negative cultures. * Continue daily miralax therapy. * Neurology evaluated patient today - suggested mirlax daily. No additional interventions recommended. 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 * Referral to [facility] post discharge. * GI consulted - appreciate their recommendations. Altered mentation/lethargy * Multifactorial - constipation, Electrolyte alteration, changes in enviroment * H/O autonomic neuropathy with features suggestive of parkinsons disease -- No antipsychotics especially typical ones. * At this point we will avoid delirium triggers in the first place. * Started on tramadol 25mg q12 PRN for agitation, Melatonin 10mg for sleep. in case if doesnt help - consider very low dose of haldol. * EKG to monitor QTc interval - 460. * psychiatry services consutled -- appreciate their recommendations. Recent Urinary Tract Infection Patient was recently treated for urinary tract infection by his PCP this past with Bactrim. He received an additional dose of Bactrim in the ED for a positive urinalysis. * Continue Bactrim DS 1 TAB PO BID EtOH Dependence Patient admits to drinking 1-2 vodka drinks with shots daily. * CIWA between 0-9. * Discontinued ativan * B12/Thiamine/Folate/MV Significant Hypokalemia * Admitted with K of 2.9 * Today 4.1 -- resolved with aggressive repletion. Dry cough - worse with eating * Underwent swallow evaluation followed by barium swallow for dry cough - started on chopped, nectar thick liquids. * Upgraded diet to chopped and nectar thick -- after repeat swallow evaulation. * Discontinued mucinex. Labile Blood pressure * On midodrine 2.5mg TID as needed -- Autonomic neuropathy. * Currently on Benicar 20mg at home converted to losartan here. * If patient is hypertensive - consider making him sit for some time & repeat blood pressure after 15min. * Never provide with antihypertensives in the first place as he can have very unpredictable alteration of his Blood pressure. Hypertension: Benicar. Hyperlipidemia: Atorvastatin 40mg PO Daily Atrial fibrillation s/p pacemaker: Aspirin 81mg GERD: Omeprazole on hold Pain Plan-Acetaminophen Diet- regular - chopped and nectar thick DVT PPx- Subcutaneous Heparin Code Status- FULL CODE Problem List: 1. Colon distention 2. Autonomic neuropathy 3. Hypokalemia 4. Constipation due to neurogenic bowel Pain Ratin Pain Location: n/a Pain Goal: Pain 4 or less Pain Plan: tylenol prn Tomorrow's Labs & Rationales: bep to monitor Potassium levels. Consulting Request: Consulting Specialty: Gastroenterology SANDRA YEN,BARBYR 12/29/16 1038: Attending MD Review Statement Attending Statement Attending MD Statement: examined this patient, discuss w/resident/PA/WIRE FRAME DIPPER, agreed w/resident/PA/WIRE FRAME DIPPER, reviewed EMR data (avail), discussed with nursing
[2016-12-29 07:53] VITALS: BP 144/70
[2016-12-29 14:36] VITALS: BP 145/82
[2016-12-29 22:38] VITALS: BP 150/84
[2016-12-30 07:30] VITALS: BP 140/90
--- NOTE | 2016-12-30 09:00 | PN- Housestaff ---
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 He is resting comfortably in bed, is not in distress, does not have any complaints. His and the patient however told me that he is still having difficulty passing stool, probably had one episode of mucoid stool last night, still does not have a well formed or brown-colored stool at all. His believes he is not back to his baseline yet. Of note his mentioned about the right upper extremity tremors, which she would like to be checked as an urgent basis. Since patient has a regular neurologist, she was agreeable to getting it checked as an outpatient. Review of Systems Constitutional: Reports: see HPI. Objective Last 24 Hrs of Vital Signs/I&O Vital Signs Date Time Temp Pulse Resp B/P B/P Pulse O2 O2 Flow FiO2 Mean Ox Delivery Rate 12/30 1416 98.6 66 20 150/82 98 12/30 0836 91 140/90 12/30 0800 Room Air 12/30 0730 97.8 91 20 140/90 93 Room Air 12/29 2238 97.5 69 20 150/84 95 Room Air Intake & Output 12/30 1600 12/30 0800 12/30 0000 Intake Total 360 600 Output Total 100 Balance 260 600 Intake, Oral 360 600 Number 0 Bowel Movements Output, Urine 100 Physical Exam General Appearance: Alert, Oriented X3, Cooperative, No Acute Distress, overweight Other Physical Findings: Skin: No Rashes, No Breakdown HEENT: Atraumatic, PERRLA, EOMI Neck: Supple Cardiovascular: Normal S1, Normal S2 Lungs: Clear to Auscultation, Normal Air Movement Abdomen: Normal Bowel Sounds, Soft, No Tenderness, bloated Neurological: Normal Speech, Sensation Intact Extremities: No Clubbing, No Cyanosis, 2+ edema present Vascular: Pulses Symmetrical Current Medications: Current Medications Sig/Gumaro Start time Last Medication Dose Route Stop Time Status Admin Acetaminophen 1,000 MG Q6P PRN 12/24 1530 AC IV Artificial Tears 2 GTT TID 12/30 1118 AC 12/30 OPH 2142 Aspirin Buffered 81 MG DAILY 12/25 1000 AC 12/30 PO 0836 Atorvastatin Calcium 40 MG 1700 12/24 1700 AC 12/30 PO 1651 Benzonatate 100 MG TID 12/25 1000 AC 12/30 PO 2145 Docusate Sodium 100 MG DAILY NEEDED PRN 12/28 1345 AC 12/30 PO 1305 Folic Acid 1 MG DAILY 12/25 1000 AC 12/30 PO 0836 Heparin Sodium 5,000 UNIT Q8 12/24 2200 AC 12/30 (Porcine) SC 2145 Losartan Potassium 50 MG DAILY 12/25 1056 AC 12/30 PO 0836 Melatonin 10 MG AT BEDTIME NEED.. 12/27 1100 AC 12/29 PO 2103 Midodrine 2.5 MG TIDAC PRN 12/24 1445 AC PO Multivitamins 1 TAB DAILY 12/24 1441 AC 12/30 PO 0836 Ondansetron HCl 4 MG Q6P PRN 12/24 1530 AC IV Polyethylene Glycol 17 GM DAILY 12/26 1551 AC 12/30 PO 0835 Thiamine HCl 100 MG DAILY 12/24 1441 AC 12/30 PO 0835 Trazodone HCl 25 MG BID PRN 12/27 1630 AC PO Trimethoprim/ 1 TAB BID 12/25 2200 DC 12/29 Sulfamethoxazole PO 2104 Last 24 Hrs of Lab/[place] Results Last 24 Hrs of Labs/Mics: Laboratory Tests 12/30/16 0640: Anion Gap 10, Estimated GFR > 60, BUN/Creatinine Ratio 22.7 Assessment/Plan Assessment: 76 year old man with extensive PMH admitted for evaluation of diarrhea, urinary frequency/urgency/burning/hematuria and dry cough. Patient is reportedly normally constipated at baseline for which he started a probiotic and subsequently developed a profuse watery diarrhea. He was identified to have a urinary tract infection by his PCP for which he was provided Bactrim. Otherwise he also admits to a cough of unclear signficance, but is of great distress to the patient. He is not very functional at baseline. Imaging X-ray of abdomen done today shows no signs of obstruction or fecal impaction, with some shadows of fecal matter on the right side. #Constipation secondary to Autonomic Neuropathy Patient with history of autonomic neuropathy followed by neurologist Dr. Cali and baseline constipation seen for evaluation of profuse watery diarrhea. * Negative cultures. * Continue daily miralax and colace therapy. * Neurology evaluation appreciated. No additional interventions recommended. 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 * Referral to [facility] post discharge. * GI consulted - appreciate their recommendations. Altered mentation/lethargy * Multifactorial - constipation, Electrolyte alteration, changes in enviroment * H/O autonomic neuropathy with features suggestive of parkinsons disease -- No antipsychotics especially typical ones. * At this point we will avoid delirium triggers in the first place. * Started on tramadol 25mg q12 PRN for agitation, Melatonin 10mg for sleep. in case if doesnt help - consider very low dose of haldol. * EKG to monitor QTc interval - 460. * psychiatry services consutled -- appreciate their recommendations. Recent Urinary Tract Infection Patient was recently treated for urinary tract infection by his PCP this past with Bactrim. He received an additional dose of Bactrim in the ED for a positive urinalysis. * Bactrim DS 1 TAB PO BID, ended December 25, 2016. EtOH Dependence Patient reported to drinking 1 vodka drink (about 6oz) and a glass of wine daily . * Was on detox initially, now off CIWA protocol. * B12/Thiamine/Folate/MV Significant Hypokalemia * Admitted with K of 2.9 * Today 4.1 -- resolved with aggressive repletion. Dry cough - worse with eating * Underwent swallow evaluation followed by barium swallow for dry cough - started on chopped, nectar thick liquids. * Upgraded diet to chopped and nectar thick -- after repeat swallow evaulation. * Off mucinex. Labile Blood pressure * On midodrine 2.5mg TID as needed -- Autonomic neuropathy. * Currently on Benicar 20mg at home converted to losartan here. * If patient is hypertensive - consider making him sit for some time & repeat blood pressure after 15min. * Never provide with antihypertensives in the first place as he can have very unpredictable alteration of his Blood pressure. Dry eyes * Started patient on tear substitute today Hypertension: Benicar. Hyperlipidemia: Atorvastatin 40mg PO Daily Atrial fibrillation s/p pacemaker: Aspirin 81mg GERD: Omeprazole on hold Pain Plan-Acetaminophen Diet- regular - chopped and nectar thick DVT PPx- Subcutaneous Heparin Code Status- FULL CODE Problem List: 1. Constipation due to neurogenic bowel 2. Autonomic neuropathy Pain Ratin Pain Location: - Pain Goal: Pain 4 or less Pain Plan: prn Tomorrow's Labs & Rationales: BEP to f/u jazzy Consulting Request: Consulting Specialty: Gastroenterology SANDRA YEN,AMIR 12/30/16 1110: Attending MD Review Statement Attending Statement Attending MD Statement: examined this patient, discuss w/resident/PA/[employer]S TENNIS COACH, agreed w/resident/PA/[employer] M[employer]'S TENNIS COACH, discussed with family, reviewed EMR data (avail), discussed with nursing Attending Assessment/Plan: Mr. Nielsen was seen and evaluated. As per RN, no BM, he only passed some mucus couple of days ago. also noticed some UE tremors. Dec PO fluid intake. PE c/w mild distension, + BM check abd x ray to assess distention and fecal impaction, encourage PO fluid intake. If no BM consider IVF. PT eval/assessment prior to D/C to [facility]. Family was updated by me at the bedside. Rest of the plan as per resident's note.
--- NOTE | 2016-12-30 13:16 | RADIOLOGY REPORT ---
EXAMINATION: XR PORTABLE ABDOMEN CLINICAL INFORMATION: Lack of proper bowel movement. Follow-up fecal impaction. COMPARISON: 12/27/2016. TECHNIQUE: AP view of the abdomen. FINDINGS: The abdomen is not completely included in the [id number] on this single radiograph. A moderate amount of fecal material present within the right colon. No significant fecal material within the examined descending colon or rectum. The visualized loops of bowel are normal in size. No overt pneumoperitoneum. Again noted are calculi projecting over the region of the renal pelvis and lower pole of the right kidney. No acute skeletal abnormality. IMPRESSION: 1. Moderate amount of stool is present within the colon. However, there is no evidence of fecal impaction within the rectum. No bowel obstruction. 2. Right renal calculi.
[2016-12-30 14:16] VITALS: BP 150/82
[2016-12-30 22:21] VITALS: BP 118/88
[2016-12-31 06:48] VITALS: BP 132/78
--- NOTE | 2016-12-31 07:23 | PN- Housestaff ---
JESSICA YNE,BHAVESH 12/31/16 0722: Subjective Follow-up For: Constipation secondary to autonomic neuropathy Confusion urinary incontinence Subjective: I saw and examined the patient today morning He is lying in the bed, coughing while having breakfast. Overnight apparently he was confused with an episode of urinary incontinence. He made a call to his , saying he was confused and wandering which was not seen by anyone. Probably he had a rough night as he didnt get his melatonin overnight. He didnt have a bowel movement for the past 4days, he didnt have any stool in his rectal vault so didnt have any bowel movement although placed a suppository and enema. at bedside - all her concerns addressed. (dry eyes, hot flashes, tremors) Review of Systems Constitutional: Reports: see HPI. Comments: ROS negative except the above. Objective Last 24 Hrs of Vital Signs/I&O Vital Signs Date Time Temp Pulse Resp B/P B/P Pulse O2 O2 Flow FiO2 Mean Ox Delivery Rate 12/31 0648 98.8 90 20 132/78 95 Room Air 12/31 0000 Room Air 12/30 2221 98.0 94 20 118/88 94 Room Air 12/30 1416 98.6 66 20 150/82 98 12/30 0836 91 140/90 12/30 0800 Room Air 12/30 0730 97.8 91 20 140/90 93 Room Air Intake & Output 12/31 0800 12/31 0000 12/30 1600 Intake Total 360 360 360 Output Total 150 100 Balance 360 210 260 Intake, Oral 360 360 360 Number 0 0 Bowel Movements Output, Urine 150 100 Physical Exam General Appearance: Alert, Oriented X3, Cooperative Skin: No Rashes HEENT: Atraumatic, PERRLA, EOMI Neck: Supple Cardiovascular: Normal S1, Normal S2 Lungs: Clear to Auscultation, Normal Air Movement Abdomen: Normal Bowel Sounds, Soft, No Tenderness Neurological: Normal Tone, Sensation Intact Extremities: No Clubbing, No Cyanosis, 2 Current Medications: Current Medications Sig/Gumaro Start time Last Medication Dose Route Stop Time Status Admin Acetaminophen 1,000 MG Q6P PRN 12/24 1530 AC IV Artificial Tears 2 GTT TID 12/30 1118 AC 12/30 OPH 2142 Aspirin Buffered 81 MG DAILY 12/25 1000 AC 12/30 PO 0836 Atorvastatin Calcium 40 MG 1700 12/24 1700 AC 12/30 PO 1651 Benzonatate 100 MG TID 12/25 1000 AC 12/30 PO 2145 Docusate Sodium 100 MG DAILY NEEDED PRN 12/28 1345 AC 12/30 PO 1305 Folic Acid 1 MG DAILY 12/25 1000 AC 12/30 PO 0836 Heparin Sodium 5,000 UNIT Q8 12/24 2200 AC 12/31 (Porcine) SC 0529 Losartan Potassium 50 MG DAILY 12/25 1056 AC 12/30 PO 0836 Melatonin 10 MG AT BEDTIME NEED.. 12/27 1100 AC 12/29 PO 2103 Midodrine 2.5 MG TIDAC PRN 12/24 1445 AC PO Multivitamins 1 TAB DAILY 12/24 1441 AC 12/30 PO 0836 Ondansetron HCl 4 MG Q6P PRN 12/24 1530 AC IV Polyethylene Glycol 17 GM DAILY 12/26 1551 AC 12/30 PO 0835 Thiamine HCl 100 MG DAILY 12/24 1441 AC 12/30 PO 0835 Trazodone HCl 25 MG BID PRN 12/27 1630 AC PO Assessment/Plan Assessment: 76 year old man with extensive PMH admitted for evaluation of diarrhea, urinary frequency/urgency/burning/hematuria and dry cough. Patient is reportedly normally constipated at baseline for which he started a probiotic and subsequently developed a profuse watery diarrhea. He was identified to have a urinary tract infection by his PCP for which he was provided Bactrim. Otherwise he also admits to a cough of unclear signficance, but is of great distress to the patient. He is not very functional at baseline. Imaging X-ray of abdomen done yesterday shows no signs of obstruction or fecal impaction , with some shadows of fecal matter on the right side. #Constipation secondary to Autonomic Neuropathy Patient with history of autonomic neuropathy followed by neurologist Dr. Cali and baseline constipation seen for evaluation of profuse watery diarrhea. * Continue daily miralax and colace therapy, today received a dulcolax suppository, fleet enema - which didnt help with any bowel movement. * Neurology evaluation appreciated. No additional interventions recommended. 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 * Referred to [facility] post discharge. Altered mentation/lethargy * Multifactorial - constipation, Electrolyte alteration, changes in enviroment * H/O autonomic neuropathy with features suggestive of parkinsons disease -- No antipsychotics especially typical ones. * At this point we will avoid delirium triggers in the first place. * Started on tramadol 25mg q12 PRN for agitation, Melatonin 10mg for sleep. in case if doesnt help - consider very low dose of haldol. * psychiatry services consutled -- appreciate their recommendations. Recent Urinary Tract Infection Patient was recently treated for urinary tract infection by his PCP this past with Bactrim. He received an additional dose of Bactrim in the ED for a positive urinalysis. * Disconinued. EtOH Dependence Patient reported to drinking 1 vodka drink (about 6oz) and a glass of wine daily . * Was on detox initially, now off CIWA protocol. * B12/Thiamine/Folate/MV Significant Hypokalemia * Admitted with K of 2.9 * Today 4.1 -- resolved with aggressive repletion. Dry cough - worse with eating * Underwent swallow evaluation followed by barium swallow for dry cough - started on chopped, nectar thick liquids. * Upgraded diet to chopped and nectar thick -- after repeat swallow evaulation. Labile Blood pressure * On midodrine 2.5mg TID as needed -- Autonomic neuropathy. * Currently on Benicar 20mg at home converted to losartan here. * If patient is hypertensive - consider making him sit for some time & repeat blood pressure after 15min. * Never provide with antihypertensives in the first place as he can have very unpredictable alteration of his Blood pressure. Dry eyes * Started patient on tear substitute today Discharged today. Hypertension: Benicar. Hyperlipidemia: Atorvastatin 40mg PO Daily Atrial fibrillation s/p pacemaker: Aspirin 81mg GERD: Omeprazole on hold Pain Plan-Acetaminophen Diet- regular - chopped and nectar thick DVT PPx- Subcutaneous Heparin Code Status- FULL CODE Problem List: 1. Autonomic neuropathy 2. 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 Lying in bed and not appear to be in any acute distress. Patient had a number of complaints this morning. Reported that he did not sleep well at night. He reported tremors of his left upper and lower extremities yesterday. He reports no bowel movements in the past 4 days but denies any urge to move his bowels. Chest x-ray was done yesterday that showed no evidence of fecal impaction or obstruction. Moderate amount of fecal material was noted in the right colon. Recommendations: -Patient medically stable to be discharged to the [facility] facility for [facility]-term [facility]. Recommend trial of suppository successful an enema consistent bowel movement. -Complaints overnight likely secondary to poor sleep. He did not receive a dose of melatonin last Night despite report of poor sleep. -Please administer melatonin nightly at bedtime. -Patient may be discharged to [facility] facility today. -Patient and are concerned about his ongoing bowel motility problems. He has been given with chronic constipation for several years. reports using an extensive regimen for him at home. Recommendations from the gastroenterology service here is for patient to follow-up in the motility clinic at [facility] as an outpatient. I have recommended to the to try to follow-up with this appointment next week if possible.
[2016-12-31 14:44] VITALS: BP 125/66
[2016-12-31] MEDS ORDERED: TRAZODONE HCL50 M1 PO (15:11)
[2016-12-31] MEDS ORDERED: MELATONIN10 M5 PO (15:11)
[2016-12-31] MEDS ORDERED: DOCUSATE SODIU1 EACH PO (15:15)
[2016-12-31 16:00] VITALS: BP 125/66
== END 2016-12-31 17:23 | DRG 394 ==
LOC: ERH 08:05 → 2NA 12:26 → ERHI 12:26 → ENRESERV 19:11 → 2NA 20:55
PROVIDERS: Internal Medicine; Physician Assistant; ADMIT Internal Medicine
DX: K63.89 Other specified diseases of intestine (principal); N17.9 Acute kidney failure, unspecified; I48.2 Chronic atrial fibrillation; G62.9 Polyneuropathy, unspecified; R13.12 Dysphagia, oropharyngeal phase; G90.9 Disorder of the autonomic nervous system, unspecified; N39.0 Urinary tract infection, site not specified; I10 Essential (primary) hypertension; E78.5 Hyperlipidemia, unspecified; E87.6 Hypokalemia; Z95.0 Presence of cardiac pacemaker; K21.9 Gastro-esophageal reflux disease without esophagitis; Z87.891 Personal history of nicotine dependence; F10.20 Alcohol dependence, uncomplicated; K59.09 Other constipation
CPT/HCPCS: 2NAP; 2NASP; 36415; 74000; 74020; 74176; 74230; 81001; 82436; 87040; 87045; 87086; 93005; 93010; 96360; 97110-GO; 97112-GO; 97161-GP; 97530-GO; G0480; J0131; J1630; J1644; J2405; J3490

== ENCOUNTER 2018-03-14 14:51 | Inpatient (IN) | payer OTHER, MEDICARE ==
[~2018-03-14] VITALS: Ht 190.5 cm; Wt 104.9 kg
[~2018-03-14 14:51] MED LIST changes: +CARBIDOPA-LEVO1 EAC7 PO; +COLACE100 M1 PO; +DOCUSATE SODIU1 EACH PO; +LACTULOSE10 GM/152 PO; +MAGNESIUM OXID400 M1 PO; +MELATONIN10 M5 PO; +MIDODRINE HCL2.5 M1 PO; +MIDODRINE HCL5 M1 PO; +MIRALAX17 G1 PO; +POTASSIUM CHLO20 ME2 PO; +PROBIOTIC1 EACH PO; +SEROQUEL25 M1 PO; +SULFAMETHOXAZO1 EAC1 PO; +TRAZODONE HCL50 M1 PO
[2018-03-14 15:51] LABS: ABSOLUTE BASOPHIL COUNT 0 /CUMM (0.0-0.2); ABSOLUTE EOSINOPHIL COUNT 0 /CUMM (0.0-0.7); ABSOLUTE GRANULOCYTE CT 4.7 /CUMM (1.4-6.5); ABSOLUTE LYMPH COUNT 0.2 /CUMM (1.2-3.4); ABSOLUTE MONOCYTE COUNT 0.2 /CUMM (0.10-0.60); BASOPHIL % 0.2 % (0.0-2.0); EOSINOPHIL % 0.6 % (0-5); HEMATOCRIT 42.5 % (42-52); MEAN CORPUSCULAR HGB 32.2 PG (27.0-31.0); MEAN CORPUSCULAR HGB CONC 33.7 G/DL (33.0-37.0); MEAN CORPUSCULAR VOLUME 95.4 FL (80.0-94.0); MEAN PLATELET VOLUME 7.4 FL (7.4-10.4); PLATELET COUNT 118 /CUMM (130-400); RBC DISTRIBUTION WIDTH 13.7 % (11.5-14.5); RED BLOOD CELL CT 4.45 /CUMM (4.70-6.10); WHITE BLOOD CELL COUNT 5.2 /CUMM (4.8-10.8)
--- NOTE | 2018-03-14 16:08 | ED GI/GU/ABDOMINAL COMPLAINT ---
History of Present Illness General Chief Complaint: General Adult Stated Complaint: NAUSEA,VOMITING Source: patient, family Exam Limitations: dementia, poor historian, discussed pt with and son Vital Signs & Intake/Output Vital Signs & Intake/Output Vital Signs Date Time Temp Pulse Resp B/P B/P Pulse O2 O2 Flow FiO2 Mean Ox Delivery Rate 03/15 0656 98.7 76 18 138/96 95 Room Air 03/14 2321 98.1 98 20 168/106 97 Room Air 03/14 2224 148/89 03/14 2109 94 18 149/89 96 Room Air 03/14 2041 93 18 169/97 95 Room Air 03/14 2007 95 18 177/113 97 Room Air 03/14 1928 75 188/115 03/14 1914 93 18 188/115 96 Room Air 03/14 1810 98.0 110 18 178/101 98 Room Air 03/14 1616 98 18 182/99 96 Room Air 03/14 1544 Room Air 03/14 1453 98.8 94 18 186/112 97 Room Air ED Intake and Output 03/15 0000 03/14 1200 Intake Total Output Total 100 Balance -100 Output, Urine 100 Patient 239 lb Weight Weight Bed scale Measurement Method Allergies Coded Allergies: lorazepam (Intermediate, HALUCINATIONS, AGITATION 12/26/16) Triage Note: PT COMING FROM HOME. HX OF PARKINSONS. STATES HAD A PARKINSON ATTACK. DID NOT TAKE LEVADOPA, STATES DOES NOT KNOW WHEN LAST TIME TOOK MED. PER EMS PT WAS HAVING N/V/D. PT DENIES N/V/D UPON ARRIVAL. DENIES ABDOMINAL PAIN. DENIES SOB, CP. AOX4. Triage Nurses Notes Reviewed? yes Onset: Abrupt Duration: day(s): Timing: recent history Activities at Onset: none HPI: 77yo male with PMHx of Parkinson's, Autonomic Neuropathy, HTN, hyperlipidemia, and atrial fibrillation is c/o of a "large tremor." Pt states that the tremor came on this afternoon and lasted about 4 minutes that was not relieved by his normal medications; noted that it did resolve with the arrival of the ambulance his called. Pt stated "Parkinson's is ruining me". Pt also complains of chills, nausea, and burning upon urination. Pt denies any headache, shortness, of breathe, chest pain, and abdominal pain. Pt noted that is also ill and also being treated in the ED. Discussed pt with , who is ill and recieving treatment in the ED. states that pt has been at baseline the last few days and woke up this morning with increased weakness and malaise, as well as c/o abdominal pain, headache, and decreased appetite. noted that pt complained of dysuria and odorous urine this morning. states that she presented with similar symptoms at onset of illness few days ago and that daughter is sick with similar complaints as well. Due to her illness and impaired ability to care for /pt, called ambulance to bring him to hospital for further evaluation. notes that the patient did have a tremor, but Parkinson's is very distressing for him. (Davonte Victoria) Reconcile Medications Aspirin (Lo-Dose Aspirin EC) 81 MG TABLET.DR 1 TAB PO DAILY HEART HEALTH ( Reported) Carbidopa/Levodopa (Carbidopa-Levodopa 25-100 Tab) 25 MG-100 MG TABLET 1.5 TAB PO Q6 PARKINSONS (Reported) Cyanocobalamin (Vitamin B-12) 1,000 MCG TABLET 1 TAB PO DAILY SUPPLEMENT ( Reported) Lactobacillus Acidophilus (Probiotic) 10 BILLION CELL CAPSULE 1 CAP PO PRN GI (Reported) Magnesium Oxide 400 MG TABLET 1 TAB PO BID SUPPLEMENT (Reported) Midodrine HCl 5 MG TABLET 2 TAB PO QAM BP (Reported) Midodrine HCl 5 MG TABLET 1 TAB PO 1300 BP (Reported) Midodrine HCl 5 MG TABLET 1 TAB PO 1800 BP (Reported) Olmesartan Medoxomil (Benicar) 20 MG TABLET 1 TAB PO DAILY HIGH BP (Reported) Potassium Chloride 20 MEQ TAB.ER.PRT 1 TAB PO BID SUPPLEMENT (Reported) Rosuvastatin Calcium (Crestor) 10 MG TABLET 1 TAB PO DAILY HEART HEALTH ( Reported) Trazodone HCl 50 MG TABLET 25 MG PO BID PRN ANXIETY/AGITATION/INSOMNIA (Rere YEN,[facility]) Past History Travel History Traveled to [place] past 21 day No Medical History Any Pertinent Medical History? see below for history Neurological: Parkinson's disease, peripheral neuropathy... walks with braces on both ankles. Cardiovascular: AFIB, hypertension, hyperlipidemia Gastrointestinal: GERD HADOOP ENGINEER/Reproductive: NONE Other Medical Hx: hypertension, atrial fibrillation status post pacemaker placement, hyperlipidemia, alcohol dependency History of MRSA: No History of VRE: No History of CDIFF: No Surgical History Surgical History: non-contributory Psychosocial History Who do you live with Spouse Services at Home None What is your primary language Taiwanese Tobacco Use: Never used Family History Hx Contributory? Yes (Davonte Victoria) Review of Systems Review of Systems Constitutional: Reports: chills, fever, malaise, weakness. Denies: see HPI. EENTM: Reports: no symptoms. Respiratory: Reports: see HPI. Cardiovascular: Reports: no symptoms. GI: Reports: no symptoms. Genitourinary: Reports: dysuria (malodorous urine). Musculoskeletal: Reports: no symptoms. Skin: Reports: no symptoms. Neurological/Psychological: Reports: see HPI, tremors, weakness. Hematologic/Endocrine: Reports: no symptoms. Immunologic/Allergic: Reports: no symptoms. All Other Systems: Reviewed and Negative (Davonte Victoria) Physical Exam Physical Exam General Appearance: alert, awake, anxious, mild distress Head: atraumatic, normal appearance Eyes: Bilateral: normal appearance, PERRL, EOMI, normal inspection. Ears, Nose, Throat, Mouth: hearing grossly normal Neck: normal inspection, supple, normal alignment Respiratory: normal breath sounds, quiet respiration Cardiovascular: regular rate/rhythm Gastrointestinal: normal bowel sounds, non-tender, distention Rectal: deferred Back: normal inspection Neurologic/Psych: awake, alert Skin: intact, normal color, warm/dry Core Measures ACS in differential dx? No Sepsis Present: No Sepsis Focused Exam Completed? No (Davonte Victoria) Progress Differential Diagnosis: AMI, cholecystitis, diverticulitis, gastritis, PUD/GERD, perforated viscous, SBO, urinary retention, UTI/pyelo Plan of Care: Orders Procedure Date/time Status BASIC ELECTROLYTES PLUS BUN&CR 03/16 0600 Active Regular Diet 03/15 B Active CBC WITHOUT DIFFERENTIAL 03/15 0600 Complete BASIC ELECTROLYTES PLUS BUN&CR 03/15 0600 Complete PT Evaluate & Treat 03/15 UNK Active Nursing Misc 03/15 UNK Active Weight 03/14 2258 Active Teach/Educate 03/14 2258 Active Pain Treatment and Response 03/14 2258 Active Nutritional Intake, Monitor 03/14 2258 Active Isolation 03/14 2258 Active Patient Care Conference 03/14 2258 Active Activity/Ambulation 03/14 2258 Active Saline Lock 03/14 1934 Active Misc Message 03/14 1934 Active ED Holding Orders 03/14 1934 Active Admit to inpatient 03/14 1934 Active Vital Signs 03/14 1934 Active Code Status 03/14 1934 Active Patient Data 03/14 1856 Active Intake & Output 03/14 1543 Active CULTURE,STOOL 03/14 1543 Active OVA AND PARASITE ANTIGENS 03/14 1543 Active C.DIFFICILE 03/14 1543 Active EKG 03/14 1506 Active URINALYSIS 03/14 1456 Complete TROPONIN LEVEL 03/14 1456 Complete LIPASE 03/14 1456 Complete LACTIC ACID 03/14 1456 Complete COMPREHENSIVE METABOLIC PANEL 03/14 1456 Complete CBC WITHOUT DIFFERENTIAL 03/14 1456 Complete Current Medications Sig/Gumaro Start time Last Medication Dose Stop Time Status Admin Midodrine 5 MG 1800 03/15 1800 CAN (Pro-Amatine) Atorvastatin Calcium 40 MG 1700 03/15 1700 AC (Lipitor) Midodrine 5 MG 1300 03/15 1300 CAN (Pro-Amatine) Aspirin Buffered 81 MG DAILY 03/15 0900 AC 03/15 (Ecotrin) 0932 Midodrine 5 MG QAM 03/15 0900 CAN (Pro-Amatine) Heparin Sodium 5,000 UNIT Q8 03/15 0054 AC 03/15 (Porcine) 0618 Carbidopa/Levodopa 1.5 TAB Q6 03/14 2359 AC 03/15 (Sinemet 25/100MG) 0619 Trazodone HCl 25 MG BID PRN 03/14 2345 AC (Desyrel) Ondansetron HCl 4 MG ONCE ONE 03/14 1700 CAN (Zofran) 03/14 1701 Sodium Chloride 1,000 ML BOLUS ONE 03/14 1700 CAN (Normal Saline 0.9%) 03/14 1859 Laboratory Tests 03/15/18 0645: Anion Gap 11, Estimated GFR > 60, BUN/Creatinine Ratio 31.3 H, CBC w Diff NO MAN DIFF REQ, RBC 4.16 L, MCV 94.5 H, MCH 31.8 H, MCHC 33.7, RDW 13.2, MPV 7.8, Gran % 79.7 H, Lymphocytes % 10.4 L, Monocytes % 9.5 H, Eosinophils % 0.2, Basophils % 0.2, Absolute Granulocytes 2.6, Absolute Lymphocytes 0.3 L, Absolute Monocytes 0.3, Absolute Eosinophils 0, Absolute Basophils 0 03/14/18 1756: Lactic Acid Cancelled 03/14/18 1530: Anion Gap 11, Estimated GFR > 60, BUN/Creatinine Ratio 34.4 H, Glucose 94, Lactic Acid 0.7, Calcium 9.7, Total Bilirubin 2.3 H, AST 22, ALT 17 L, Alkaline Phosphatase 68, Troponin I 0.01, Total Protein 7.3, Albumin 4.4, Globulin 2.9, Albumin/Globulin Ratio 1.5, Lipase 84, CBC w Diff NO MAN DIFF REQ, RBC 4.45 L, MCV 95.4 H, MCH 32.2 H, MCHC 33.7, RDW 13.7, MPV 7.4, Gran % 90.7 H, Lymphocytes % 3.7 L, Monocytes % 4.8, Eosinophils % 0.6, Basophils % 0.2, Absolute Granulocytes 4.7, Absolute Lymphocytes 0.2 L, Absolute Monocytes 0.2, Absolute Eosinophils 0, Absolute Basophils 0, Urine Color YEL, Urine Clarity CLEAR, Urine pH 6.0, Ur Specific [place] 1.020, Urine Protein TRACE H, Urine Ketones 15 H, Urine Nitrite NEG, Urine Bilirubin NEG, Urine Urobilinogen 0.2, Ur Leukocyte Esterase NEG, Ur Microscopic SEDIMENT EXAMINED, Urine RBC 1-3, Urine Bacteria FEW H, Urine Hemoglobin TRACE-INTACT H, Urine Glucose NEG Microbiology 03/14 1543 STOOL: Cryptosporidium Antigen - COLB 03/14 1543 STOOL: Giardia Antigen (RAE) - COLB 03/14 1543 STOOL: Clostridium difficile Toxin A & B - COLB 03/14 154 STOOL: Stool Culture - COLB Diagnostic Imaging: Viewed by Me: Radiology Read, CT Scan. Discussed w/RAD: Radiology Read, CT Scan. Radiology Impression: PATIENT: YOSSI PERERA PRESENT AGE: 77 PATIENT ACCOUNT NO: [id number] : 39 LOCATION: [facility] ORDERING PHYSICIAN: Davonte CARPENTER SERVICE DATE: 03/14/18 EXAM TYPE: RAD - XRY-PORTABLE CHEST XRAY EXAMINATION: XR PORTABLE CHEST CLINICAL INFORMATION: Weakness. Fever. COMPARISON: Chest x-ray 04/20/2017 TECHNIQUE: Portable frontal view of the chest was obtained. 3:54 PM FINDINGS: No change position of pacemaker leads in the right atrium and right ventricle. No change of the cardiomediastinal contour. There are calcifications of thoracic aorta. There is no acute abnormality of the chest. The lungs are clear. There is no pulmonary vascular congestion and there is no pleural effusion. IMPRESSION: No acute abnormality of the chest. DICTATED BY: Leonard Ware MD DATE/TIME DICTATED:1612 PATHOLOGIST ASSISTANT:CLEMENTINA DATE/TIME TRANSCRIBED:03/14/181612 CONFIDENTIAL, DO NOT COPY WITHOUT APPROPRIATE AUTHORIZATION. <Electronically signed in Other Vendor System> SIGNED BY: Leonard Ware MD 03/14/181625 Initial ED EKG: rate (92), AFIB, nonspecific ST T wave chg (V4,V5,V6) (Davonte Victoria) Departure Departure Disposition: HOME OR SELF CARE Condition: Stable Clinical Impression Primary Impression: Prerenal azotemia Secondary Impressions: Abdominal pain, Multifactorial gait disorder Referrals: Cierra Gonzalez MD (PCP/Family) Additional Instructions: Follow-up with primary care doctor. Return if any concerns or symptoms. Please note that there might be incidental findings in your evaluation that are unrelated to the current emergency department visit. Please notify your primary care doctor about this emergency department visit in order to obtain and review all of the testing performed so that these incidental findings can be monitored as needed. If you had an x-ray performed, please understand that some fractures may not be seen on the initial set of x-rays. If your symptoms persist you might need a repeat set of x-rays to check for such a fracture. If you had a laceration evaluated, please understand that foreign bodies such as glass or wood may not be visible to the naked eye or on plain x-rays. If the wound becomes red, swollen, increasingly more painful or if there is any drainage from the wound, please have it reevaluated by a physician for the possibility of a retained foreign body. If you're unable to follow up as outlined in the discharge instructions please return to the emergency department. Thank you for choosing the [facility] Emergency Department for your care. It was a pleasure to serve you today. Departure Forms: Customer Survey General Discharge Information Comments 03/14/2018 6:20:27 PM Patient clinically looks well. Patient is no apparent distress. Nontoxic- appearing. No acute findings and workup. Stable for discharge at this time. Follow-up with PCP. Admission Note Spoke With: Luciano Funes MD Documentation of Exam: Documentation of any treatments & extenuating circumstances including Concerns Regarding Discharge (functional status, medication knowledge or non-compliance, living conditions, etc.) that warrant an admission rather than observation: Gentle IV hydration. PT consult. Case management consult. Below is normal baseline of function. Unable to ambulate here in the emergency room. Unable to perform ADLs at home. Medically not safe for discharge. (Davonte Victoria) PA/INDIRECT FIRE INFANTRYMAN Co-Sign Statement Statement: ED Attending supervision documentation- [X] I saw and evaluated the patient. I have also reviewed all the pertinent lab results and diagnostic results. I agree with the findings and the plan of care as documented in the PA's/INDIRECT FIRE INFANTRYMAN's documentation. [] I have reviewed the ED Record and agree with the PA's/INDIRECT FIRE INFANTRYMAN's documentation. [] Additions or exceptions (if any) to the PAs/INDIRECT FIRE INFANTRYMAN's note and plan are summarized below: [] 03/14/18 1650 77 year old male presents with nausea, vomiting, and diarrhea. Both and daughter are both sick. Abdomin is soft and non tender, He denies fever or chest pain. pending CT scan The patient appears nontoxic. The is concerned that the patient has Parkinson's and might have trouble walking because of his weakness. We will evaluate him for safety before he goes home. Resident Co-Sign Statement Statement: ED Attending supervision documentation- [] I saw and evaluated the patient. I have also reviewed all the pertinent lab results and diagnostic results. I agree with the findings and the plan of care as documented in the Resident's documentation. [] I have reviewed the ED Record and agree with the Resident's documentation. [] Additions or exceptions (if any) to the Resident's note and plan are summarized below: [] (Rere YEN,[facility])
[2018-03-14 16:23] LABS: GRANULOCYTE % 90.7 % (42.2-75.2)
--- NOTE | 2018-03-14 16:26 | RADIOLOGY REPORT ---
EXAMINATION: XR PORTABLE CHEST CLINICAL INFORMATION: Weakness. Fever. COMPARISON: Chest x-ray 04/20/2017 TECHNIQUE: Portable frontal view of the chest was obtained. 3:54 PM FINDINGS: No change position of pacemaker leads in the right atrium and right ventricle. No change of the cardiomediastinal contour. There are calcifications of thoracic aorta. There is no acute abnormality of the chest. The lungs are clear. There is no pulmonary vascular congestion and there is no pleural effusion. IMPRESSION: No acute abnormality of the chest.
--- NOTE | 2018-03-14 17:54 | CT SCAN REPORT ---
EXAMINATION: CT ABDOMEN AND PELVIS WITHOUT CONTRAST CLINICAL INFORMATION: Abdominal pain. COMPARISON: CT scan abdomen and pelvis 05/06/2017, 04/20/2017. CT chest 12/24/2016. TECHNIQUE: Multidetector volumetric imaging was performed from the superior aspect of the liver through the pubic symphysis. Sagittal and coronal reformatted images were obtained on the technologist's workstation. DLP: 818.41 mGy-cm FINDINGS: LUNG BASES: Pacemaker lead in right atrium and right ventricle. There is heavy vascular wall calcification of the coronary arteries and thoracic aorta. There is asymmetric elevation of the left diaphragm compared to the right. LIVER, GALLBLADDER, AND BILIARY TREE: The liver is normal in size, shape, and attenuation. No focal hepatic lesion or biliary ductal dilatation is present. The gallbladder is unremarkable with no evidence of radiopaque gallstones, gallbladder wall thickening, or obvious pericholecystic inflammatory changes. PANCREAS: Unremarkable. SPLEEN: Unremarkable. ADRENAL GLANDS: Stable fullness of left adrenal gland. Right adrenal gland is normal. KIDNEYS AND URETERS: Right Kidney: There is a stone at the right ureteropelvic junction. This stone measures 1 cm. This stone was present on the CAT scan of 12/24/2016 and is unchanged in position. There is mild dilatation of the upper pole calyces of the right kidney but no dilatation of the mid or lower pole calyces or significant distention of the renal pelvis. There is a 7 mm stone and 2 smaller stones at the lower pole of the right kidney. There is a small granular linear calcification, probably small clumped stones, in the dependent upper pole calyx. These stones are unchanged since prior CAT scan of 2016. There is a large cyst in the right mid pole of the kidney that impresses upon the renal pelvis. This cyst measures 7 cm. This is unchanged since prior study. Left Kidney: There is no calculus or hydronephrosis. There is a hyperdense cyst at the posterior cortex midpole left kidney measuring 9 mm. There is a 1 cm pedunculated cyst at the lower pole of the left kidney. BLADDER: Unremarkable. GASTROINTESTINAL TRACT: There is no acute change of the bowel. No bowel obstruction. No bowel wall thickening or edema. Moderate volume of stool throughout the colon. There is a large amount of gas in the large and small-bowel loops which is similar to prior studies. The appendix is not seen. No inflammation of the mesentery. ABDOMINAL WALL: No significant hernia is appreciated. LYMPH NODES: Normal. VASCULAR: There is atherosclerotic vascular wall calcifications of the aorta and iliac arteries as well as calcification of the superior mesenteric artery, splenic artery and origin of the right and left renal arteries. PELVIC VISCERA: Unremarkable. OSSEOUS STRUCTURES: Multilevel degenerative spondylosis of spine with disc height narrowing, endplate spurring and facet joint arthrosis. IMPRESSION: No acute abnormality of the abdomen or the pelvis. 1. No change in position of the 1 cm stone at the right ureteropelvic junction of the right kidney without significant hydronephrosis. No change of the stones in the right kidney calyces as well. Stable large cyst involving the kidney impressing upon the renal pelvis. 2. No acute change of the bowel.
[2018-03-14] MEDS ORDERED: BENICAR20 M1 PO (19:25)
[2018-03-14 23:21] VITALS: BP 168/106
--- NOTE | 2018-03-14 23:55 | History & Physical ---
Amadeo Soto 03/14/18 6563: General Information and HPI History of Present Illness: 77-year-old male past medical history of autonomic neuropathy, atrial fibrillation status post pacemaker and on anticoagulant, HTN, hyperlipidemia, EtOH dependency, Parkinson, GERD presented with the chief complaint of loose motion and right hand tremors. Patient was in his usual state since morning when he started having tremors due to his Parkinson disease he also having loose motion multiple episodes , there was no blood and was watery in consistency. Patient denies any nausea, dizziness, feverand chills. He denies recent fall, he uses walker for walking. Past History Travel History Traveled to [place] past 21 day No Medical History Neurological: Parkinson's disease, peripheral neuropathy... walks with braces on both ankles. 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 spouse Services at Home: None Smoking Status: Former Smoker Review of Systems Review of Systems Constitutional: Denies: chills, diaphoresis. EENTM: Denies: blurred vision, double vision, throat pain. Cardiovascular: Denies: chest pain, edema, orthopena, palpitations, peripheral edema. Respiratory: Denies: cough, hemoptysis. GI: Reports: see HPI, diarrhea. Denies: constipation. Genitourinary: Denies: no symptoms. Musculoskeletal: Denies: no symptoms. Skin: Denies: no symptoms. Exam & Diagnostic Data Last 24 Hrs of Vital Signs/I&O Vital Signs Date Time Temp Pulse Resp B/P B/P Pulse O2 O2 Flow FiO2 Mean Ox Delivery Rate 03/141 98.1 98 20 168/106 97 Room Air 03/144 148/89 03/149 94 18 149/89 96 Room Air 03/14 2041 93 18 169/97 95 Room Air 03/14 2007 95 18 177/113 97 Room Air 03/14 1928 75 188/115 03/14 1914 93 18 188/115 96 Room Air 03/14 1810 98.0 110 18 178/101 98 Room Air 03/14 1616 98 18 182/99 96 Room Air 03/14 1544 Room Air 03/14 1453 98.8 94 18 186/112 97 Room Air Intake & Output 03/15 0800 03/15 0000 03/14 1600 Intake Total 110 Output Total 100 Balance 110 -100 Intake, Oral 110 Number 1 Bowel Movements Output, Urine 100 Patient 239 lb 200 lb Weight Weight Bed scale Estimated Measurement Method Diagnostic Data CXR Results FINDINGS: No change position of pacemaker leads in the right atrium and right ventricle. No change of the cardiomediastinal contour. There are calcifications of thoracic aorta. There is no acute abnormality of the chest. The lungs are clear. There is no pulmonary vascular congestion and there is no pleural effusion. Other Results FINDINGS: LUNG BASES: Pacemaker lead in right atrium and right ventricle. There is heavy vascular wall calcification of the coronary arteries and thoracic aorta. There is asymmetric elevation of the left diaphragm compared to the right. LIVER, GALLBLADDER, AND BILIARY TREE: The liver is normal in size, shape, and attenuation. No focal hepatic lesion or biliary ductal dilatation is present. The gallbladder is unremarkable with no evidence of radiopaque gallstones, gallbladder wall thickening, or obvious pericholecystic inflammatory changes. Assessment/Plan Assessment: Diarrhea; According the patient he had loose motion multiple episodes. The patient also told that he had nausea and vomiting. On examination the patient is well hydrated there is no sign of dehydration stool culture in the facility regarding and Cryptosporidium has been sent from the emergency department and will follow with the same. Hypertensive urgency; The patient came in with systolic blood pressure of 180. Antihypertensive medication given the blood pressure falls to 160. We will be holding the antihypertensive medications or target of 20 mmHg following blood pressure achieved in 48 hour. As Ranked By This Provider Problem List: 1. Parkinsons disease 2. Diarrhea 3. Multifactorial gait disorder Core Measures/Misc (05/05) Acute Coronary Syndrome ACS Diagnosis: No Congestive Heart Failure Congestive Heart Failure Diagnosis No Cerebrovascular Accident CVA/TIA Diagnosis: No Sepsis (View protocol) Sepsis Present: No If YES complete Sepsis Event Note If YES complete Sepsis Event Note Meg Garcia MD 03/15/18 0033: Core Measures/Misc (05/05) Acute Coronary Syndrome ACS Diagnosis: No Congestive Heart Failure Congestive Heart Failure Diagnosis No Cerebrovascular Accident CVA/TIA Diagnosis: No VTE (View Protocol) VTE Risk Factors Age>40 No Mechanical VTE Prophylaxis d/t Other No VTE Pharm Prophylaxis d/t Other Sepsis (View protocol) Sepsis Present: No If YES complete Sepsis Event Note If YES complete Sepsis Event Note Resident Review Statement Other Findings: 77-year-old gentleman with past medical history of parkinsonism, autonomic Neuropathy, Atrial Fibrillation s/p Pacemaker not on anticoagulation, EtOH Dependence, Hypertension, Hyperlipidemia, GERD Came with complaints of diarrhea and right side hand tremors. Patient is a poor historian. According to the patient was in usual state of health until today morning, started developing tremors in his right hand which he came secondary due to Parkinson disease. He is unsure when he had this carbidopa but was able to tell that he takes it 4 times a day 1.5 mg. Patient also complains of multiple episodes of diarrhea which is not associated with blood. He denies nausea, vomiting, headache, nausea, vomiting, chest pain, palpitations, weakness, abdominal pain, fever, chills, dizziness, vision changes. He endorses taking his medications regularly. At baseline patient uses walker at home. He denies recent fall. He is aware that he has unsteady gait but would like to go back home. 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 CT abdomen and pelvis No acute abnormality of the abdomen or the pelvis. 1. No change in position of the 1 cm stone at the right ureteropelvic junction of the right kidney without significant hydronephrosis. No change of the stones in the right kidney calyces as well. Stable large cyst involving the kidney impressing upon the renal pelvis. 2. No acute change of the bowel. Chest x-ray No acute abnormality of the chest. Admitting vitals Temperature 98.1, pulse rate 94, respiratory rate 18, blood pressure 186/112---> 168/106 Admission labs WBC 5.2, hemoglobin 14.3, platelet count 118, sodium 142, potassium 4.5, BUN 31, creatinine 0.9, calcium 9.7, lactic acid 0.7, lipase-84, troponin 0 0.01 ED treatment Losartan 50 mg once, metoprolol IV 5 mg once On examination patient lying in his bed comfortably. Saturating 98% on room air. Cardiovascular [id number] irregular Respiratory system-normal vesicular breath sounds Appropriate abdomen-soft Cardiovascular system-strength 3 x 5 all 4 limbs. Sensation intact. Cerebellar signs-negative. 3 digital cranial nerves intact. Assessment and plan 1. Hypertensive urgency-patient is on midodrine for autonomic hypotension. He came in with a blood pressure of systolic 180s. After a dose of losartan it came down to 160s. For now we will try to maintain the blood pressure systolic at 160s since the patient already had 20 mmhg fall of his blood pressure. We will also hold his olmesartan. 2. Diarrhea-unsure of his history though his was in the ED upon presentation complained of nausea and vomiting. On examination patient appears well-hydrated. stool culture, C. difficile, Giardia and Cryptosporidium has been sent from ED and will follow with the same. Continue his home medication atorvastatin, aspirin, Sinemet, trazodone. Marin YEN,Luciano 03/15/18 0254: General Information and HPI MD Statement: I have seen and personally examined YOSSI PERERA and documented this H&P. The patient is a 77 year old M who presented with a patient stated chief complaint of [right hand tremor]. Source of Information: patient Exam Limitations: poor historian Allergies/Medications Allergies: Coded Allergies: lorazepam (Intermediate, HALUCINATIONS, AGITATION 12/26/16) Home Med list Aspirin (Lo-Dose Aspirin EC) 81 MG TABLET.DR 1 TAB PO DAILY HEART HEALTH ( Reported) Carbidopa/Levodopa (Carbidopa-Levodopa 25-100 Tab) 25 MG-100 MG TABLET 1.5 TAB PO Q6 PARKINSONS (Reported) Cyanocobalamin (Vitamin B-12) 1,000 MCG TABLET 1 TAB PO DAILY SUPPLEMENT ( Reported) Lactobacillus Acidophilus (Probiotic) 10 BILLION CELL CAPSULE 1 CAP PO PRN GI (Reported) Magnesium Oxide 400 MG TABLET 1 TAB PO BID SUPPLEMENT (Reported) Midodrine HCl 5 MG TABLET 2 TAB PO QAM BP (Reported) Midodrine HCl 5 MG TABLET 1 TAB PO 1300 BP (Reported) Midodrine HCl 5 MG TABLET 1 TAB PO 1800 BP (Reported) Olmesartan Medoxomil (Benicar) 20 MG TABLET 1 TAB PO DAILY HIGH BP (Reported) Potassium Chloride 20 MEQ TAB.ER.PRT 1 TAB PO BID SUPPLEMENT (Reported) Rosuvastatin Calcium (Crestor) 10 MG TABLET 1 TAB PO DAILY HEART HEALTH ( Reported) Trazodone HCl 50 MG TABLET 25 MG PO BID PRN ANXIETY/AGITATION/INSOMNIA Past History Medical History Neurological: Parkinson's disease Cardiovascular: AFIB, hypertension, hyperlipidemia Gastrointestinal: GERD Endocrine: diabetes Surgical History Surgical History: pacer placement Past Family/Social History Psychosocial History Smoking Status: Former Smoker ETOH Use: heavy use Illicit Drug Use: denies illicit drug use Employment History Employment Retired Review of Systems Review of Systems Constitutional: Reports: see HPI. Exam & Diagnostic Data Last 24 Hrs of Vital Signs/I&O Vital Signs Date Time Temp Pulse Resp B/P B/P Pulse O2 O2 Flow FiO2 Mean Ox Delivery Rate 03/14 2321 98.1 98 20 168/106 97 Room Air 03/14 2224 148/89 03/14 2109 94 18 149/89 96 Room Air 03/14 2041 93 18 169/97 95 Room Air 03/14 2007 95 18 177/113 97 Room Air 03/14 1928 75 188/115 03/14 1914 93 18 188/115 96 Room Air 03/14 1810 98.0 110 18 178/101 98 Room Air 03/14 1616 98 18 182/99 96 Room Air 03/14 1544 Room Air 03/14 1453 98.8 94 18 186/112 97 Room Air Intake & Output 03/15 0800 03/15 0000 03/14 1600 Intake Total Output Total 100 Balance -100 Output, Urine 100 Patient 239 lb 200 lb Weight Weight Bed scale Estimated Measurement Method Physical Exam General Appearance Alert, Oriented X3, Cooperative Skin No Rashes HEENT Atraumatic, PERRLA, EOMI Neck Supple, No JVD Lymphatic Axillary nl, Cervical nl Cardiovascular irregular irregular Lungs Clear to Auscultation, Normal Air Movement Abdomen Normal Bowel Sounds, Soft, No Tenderness Neurological impaired by Parkinson's disease Last 24 Hrs of Labs/Milton: Laboratory Tests 03/14/18 1756: Lactic Acid Cancelled 03/14/18 1530: Anion Gap 11, Estimated GFR > 60, BUN/Creatinine Ratio 34.4 H, Glucose 94, Lactic Acid 0.7, Calcium 9.7, Total Bilirubin 2.3 H, AST 22, ALT 17 L, Alkaline Phosphatase 68, Troponin I 0.01, Total Protein 7.3, Albumin 4.4, Globulin 2.9, Albumin/Globulin Ratio 1.5, Lipase 84, CBC w Diff NO MAN DIFF REQ, RBC 4.45 L, MCV 95.4 H, MCH 32.2 H, MCHC 33.7, RDW 13.7, MPV 7.4, Gran % 90.7 H, Lymphocytes % 3.7 L, Monocytes % 4.8, Eosinophils % 0.6, Basophils % 0.2, Absolute Granulocytes 4.7, Absolute Lymphocytes 0.2 L, Absolute Monocytes 0.2, Absolute Eosinophils 0, Absolute Basophils 0, Urine Color YEL, Urine Clarity CLEAR, Urine pH 6.0, Ur Specific [place] 1.020, Urine Protein TRACE H, Urine Ketones 15 H, Urine Nitrite NEG, Urine Bilirubin NEG, Urine Urobilinogen 0.2, Ur Leukocyte Esterase NEG, Ur Microscopic SEDIMENT EXAMINED, Urine RBC 1-3, Urine Bacteria FEW H, Urine Hemoglobin TRACE-INTACT H, Urine Glucose NEG Microbiology 03/14 154 STOOL: Cryptosporidium Antigen - COLB 03/14 1543 STOOL: Giardia Antigen (MILTON) - COLB 03/14 1543 STOOL: Clostridium difficile Toxin A & B - COLB 03/14 1543 STOOL: Stool Culture - COLB Core Measures/Misc (05/05) Sepsis (View protocol) If YES complete Sepsis Event Note If YES complete Sepsis Event Note Attending MD Review Statement Attending Statement Attending MD Statement: examined this patient, discuss w/resident/PA/MILLSTONE CLEANER, agreed w/resident/PA/MILLSTONE CLEANER, amended to note Attending Assessment/Plan: This patient is a 77-year-old gentleman with a significant past medical history of parkinsonism, autonomic Neuropathy, Atrial Fibrillation s/p Pacemaker not on anticoagulation, EtOH Dependence, Hypertension, Hyperlipidemia, GERD who came in with complaints of diarrhea and right side hand tremors. The patient is a poor historian. The patient was in usual state of health until the morning of admission when he started developing worsening tremors in his right hand. The patient also complains of multiple episodes of diarrhea. He has a very unsteady gait and was not able to be safely discharged home. The patient was also noted to have an elevated blood [id number]/112---> 168/106. A chest x-ray and CT of the abdomen and pelvis were performed with no acute abnormalities. The patient was given losartan and metoprolol while in the emergency department for hypertensive urgency. The patient is on Midorine which will be held. Initial test to rule out causes of diarrhea have been ordered. with complaints of diarrhea and right side hand tremors. The patient is a poor historian. The patient was in usual state of health until the morning of admission when he started developing worsening tremors in his right hand. The patient also complains of multiple episodes of diarrhea. He has a very unsteady gait and was not able to be safely discharged home. The patient was also noted to have an elevated blood li[place]620/112---> 168/106. A chest x-ray and CT of the abdomen and pelvis were performed with no acute abnormalities. The patient was given losartan and metoprolol while in the emergency department for hypertensive urgency. The patient is on Midorine which will be held. Initial test to rule out causes of diarrhea have been ordered.
[2018-03-15 06:56] VITALS: BP 138/96
--- NOTE | 2018-03-15 08:16 | PN- Housestaff ---
Objective Last 24 Hrs of Vital Signs/I&O Vital Signs Date Time Temp Pulse Resp B/P B/P Pulse O2 O2 Flow FiO2 Mean Ox Delivery Rate 03/15 0656 98.7 76 18 138/96 95 Room Air 03/14 2321 98.1 98 20 168/106 97 Room Air 03/14 2224 148/89 03/14 2109 94 18 149/89 96 Room Air 03/14 2041 93 18 169/97 95 Room Air 03/14 2007 95 18 177/113 97 Room Air 03/14 1928 75 188/115 03/14 1914 93 18 188/115 96 Room Air 03/14 1810 98.0 110 18 178/101 98 Room Air 03/14 1616 98 18 182/99 96 Room Air 03/14 1544 Room Air 03/14 1453 98.8 94 18 186/112 97 Room Air Intake & Output 03/15 1600 03/15 0800 03/15 0000 Intake Total 110 Output Total 100 Balance 110 -100 Intake, Oral 110 Number 1 Bowel Movements Output, Urine 100 Patient 108.409 kg Weight Weight Bed scale Measurement Method Current Medications: Current Medications Sig/Gumaro Start time Last Medication Dose Route Stop Time Status Admin Aspirin Buffered 81 MG DAILY 03/15 0900 AC PO Atorvastatin Calcium 40 MG 1700 03/15 1700 AC PO Carbidopa/Levodopa 1.5 TAB Q6 03/14 2359 AC 03/15 PO 0619 Carbidopa/Levodopa 1 TAB STAT STA 03/14 2139 DC 03/14 PO 03/14 2140 2145 Heparin Sodium 5,000 UNIT Q8 03/15 0054 AC 03/15 (Porcine) SC 0618 Losartan Potassium 0 .STK-MED ONE 03/14 1909 DC PO Losartan Potassium 50 MG ONCE ONE 03/14 1900 DC 03/14 PO 03/14 1901 1928 Metoprolol Tartrate 5 MG ONCE ONE 03/14 2045 DC IV 03/14 2046 Midodrine 5 MG 1800 03/15 1800 CAN PO Midodrine 5 MG 1300 03/15 1300 CAN PO Midodrine 5 MG QAM 03/15 0900 CAN PO Ondansetron HCl 4 MG ONCE ONE 03/14 1700 CAN IV 03/14 1701 Sodium Chloride 1,000 ML ONCE ONE 03/14 1900 AC 03/14 IV 03/15 0819 1929 Sodium Chloride 1,000 ML BOLUS ONE 03/14 1700 CAN IV 03/14 1859 Trazodone HCl 25 MG BID PRN 03/14 2345 AC PO Last 24 Hrs of Lab/Milton Results Last 24 Hrs of Labs/Mics: Laboratory Tests 03/15/18 0645: Sodium Pending, Potassium Pending, Chloride Pending, Carbon Dioxide Pending, Anion Gap Pending, BUN Pending, Creatinine Pending, BUN/Creatinine Ratio Pending , CBC w Diff Pending, WBC Pending, RBC Pending, Hgb Pending, Hct Pending, MCV Pending, MCH Pending, MCHC Pending, RDW Pending, Plt Count Pending, MPV Pending 03/14/18 1756: Lactic Acid Cancelled 03/14/18 1530: Anion Gap 11, Estimated GFR > 60, BUN/Creatinine Ratio 34.4 H, Glucose 94, Lactic Acid 0.7, Calcium 9.7, Total Bilirubin 2.3 H, AST 22, ALT 17 L, Alkaline Phosphatase 68, Troponin I 0.01, Total Protein 7.3, Albumin 4.4, Globulin 2.9, Albumin/Globulin Ratio 1.5, Lipase 84, CBC w Diff NO MAN DIFF REQ, RBC 4.45 L, MCV 95.4 H, MCH 32.2 H, MCHC 33.7, RDW 13.7, MPV 7.4, Gran % 90.7 H, Lymphocytes % 3.7 L, Monocytes % 4.8, Eosinophils % 0.6, Basophils % 0.2, Absolute Granulocytes 4.7, Absolute Lymphocytes 0.2 L, Absolute Monocytes 0.2, Absolute Eosinophils 0, Absolute Basophils 0, Urine Color YEL, Urine Clarity CLEAR, Urine pH 6.0, Ur Specific [place] 1.020, Urine Protein TRACE H, Urine Ketones 15 H, Urine Nitrite NEG, Urine Bilirubin NEG, Urine Urobilinogen 0.2, Ur Leukocyte Esterase NEG, Ur Microscopic SEDIMENT EXAMINED, Urine RBC 1-3, Urine Bacteria FEW H, Urine Hemoglobin TRACE-INTACT H, Urine Glucose NEG Microbiology 03/14 1543 STOOL: Cryptosporidium Antigen - COLB 03/14 154 STOOL: Giardia Antigen (MILTON) - COLB 03/14 154 STOOL: Clostridium difficile Toxin A & B - COLB 03/14 154 STOOL: Stool Culture - COLB
[2018-03-15 08:31] LABS: ABSOLUTE BASOPHIL COUNT 0 /CUMM (0.0-0.2); ABSOLUTE EOSINOPHIL COUNT 0 /CUMM (0.0-0.7); ABSOLUTE GRANULOCYTE CT 2.6 /CUMM (1.4-6.5); ABSOLUTE LYMPH COUNT 0.3 /CUMM (1.2-3.4); ABSOLUTE MONOCYTE COUNT 0.3 /CUMM (0.10-0.60); BASOPHIL % 0.2 % (0.0-2.0); EOSINOPHIL % 0.2 % (0-5); GRANULOCYTE % 79.7 % (42.2-75.2); HEMATOCRIT 39.3 % (42-52); MEAN CORPUSCULAR HGB 31.8 PG (27.0-31.0); MEAN CORPUSCULAR HGB CONC 33.7 G/DL (33.0-37.0); MEAN CORPUSCULAR VOLUME 94.5 FL (80.0-94.0); MEAN PLATELET VOLUME 7.8 FL (7.4-10.4); PLATELET COUNT 101 /CUMM (130-400); RBC DISTRIBUTION WIDTH 13.2 % (11.5-14.5); RED BLOOD CELL CT 4.16 /CUMM (4.70-6.10); WHITE BLOOD CELL COUNT 3.3 /CUMM (4.8-10.8)
--- NOTE | 2018-03-15 08:33 | PN- Housestaff ---
Radha YEN,Meg 03/15/18 0833: Subjective Follow-up For: Hypertensive urgency Diarrhea Complaints: no complaints Subjective: Patient seen and examined. He slept well overnight. No overnight events. No complaints. Review of Systems Constitutional: Reports: no symptoms. Objective Last 24 Hrs of Vital Signs/I&O Vital Signs Date Time Temp Pulse Resp B/P B/P Pulse O2 O2 Flow FiO2 Mean Ox Delivery Rate 03/15 0656 98.7 76 18 138/96 95 Room Air 03/14 2321 98.1 98 20 168/106 97 Room Air 03/14 2224 148/89 03/14 2109 94 18 149/89 96 Room Air 03/14 2041 93 18 169/97 95 Room Air 03/14 2007 95 18 177/113 97 Room Air 03/14 1928 75 188/115 03/14 1914 93 18 188/115 96 Room Air 03/14 1810 98.0 110 18 178/101 98 Room Air 03/14 1616 98 18 182/99 96 Room Air 03/14 1544 Room Air 03/14 1453 98.8 94 18 186/112 97 Room Air Intake & Output 03/15 1600 03/15 0800 03/15 0000 Intake Total 110 Output Total 100 Balance 110 -100 Intake, Oral 110 Number 1 Bowel Movements Output, Urine 100 Patient 239 lb Weight Weight Bed scale Measurement Method Physical Exam General Appearance: Alert, Oriented X3, Cooperative, No Acute Distress Cardiovascular: Normal S1, Normal S2, No Murmurs Lungs: Normal Air Movement Abdomen: Soft, No Tenderness, No Hepatospenomegaly Neurological: Normal Tone, Sensation Intact, Cranial Nerves 3-12 NL Current Medications: Current Medications Sig/Gumaro Start time Last Medication Dose Route Stop Time Status Admin Aspirin Buffered 81 MG DAILY 03/15 0900 AC PO Atorvastatin Calcium 40 MG 1700 03/15 1700 AC PO Carbidopa/Levodopa 1.5 TAB Q6 03/14 2359 AC 03/15 PO 0619 Carbidopa/Levodopa 1 TAB STAT STA 03/14 2139 DC 03/14 PO 03/14 214 214 Heparin Sodium 5,000 UNIT Q8 03/15 0054 AC 03/15 (Porcine) SC 0618 Losartan Potassium 0 .STK-MED ONE 03/14 1909 DC PO Losartan Potassium 50 MG ONCE ONE 03/14 190 DC 03/14 PO 03/14 1901 1928 Metoprolol Tartrate 5 MG ONCE ONE 03/14 2045 DC IV 03/14 2046 Midodrine 5 MG 1800 03/15 1800 CAN PO Midodrine 5 MG 1300 03/15 1300 CAN PO Midodrine 5 MG QAM 03/15 0900 CAN PO Ondansetron HCl 4 MG ONCE ONE 03/14 1700 CAN IV 03/14 1701 Sodium Chloride 1,000 ML ONCE ONE 03/14 1900 DC 03/14 IV 03/15 0819 1929 Sodium Chloride 1,000 ML BOLUS ONE 03/14 1700 CAN IV 03/14 1859 Trazodone HCl 25 MG BID PRN 03/14 2345 AC PO Last 24 Hrs of Lab/Milton Results Last 24 Hrs of Labs/Mics: Laboratory Tests 03/15/18 0645: Sodium Pending, Potassium Pending, Chloride Pending, Carbon Dioxide Pending, Anion Gap Pending, BUN Pending, Creatinine Pending, BUN/Creatinine Ratio Pending , CBC w Diff Pending, WBC Pending, RBC Pending, Hgb Pending, Hct Pending, MCV Pending, MCH Pending, MCHC Pending, RDW Pending, Plt Count Pending, MPV Pending 03/14/18 1756: Lactic Acid Cancelled 03/14/18 1530: Anion Gap 11, Estimated GFR > 60, BUN/Creatinine Ratio 34.4 H, Glucose 94, Lactic Acid 0.7, Calcium 9.7, Total Bilirubin 2.3 H, AST 22, ALT 17 L, Alkaline Phosphatase 68, Troponin I 0.01, Total Protein 7.3, Albumin 4.4, Globulin 2.9, Albumin/Globulin Ratio 1.5, Lipase 84, CBC w Diff NO MAN DIFF REQ, RBC 4.45 L, MCV 95.4 H, MCH 32.2 H, MCHC 33.7, RDW 13.7, MPV 7.4, Gran % 90.7 H, Lymphocytes % 3.7 L, Monocytes % 4.8, Eosinophils % 0.6, Basophils % 0.2, Absolute Granulocytes 4.7, Absolute Lymphocytes 0.2 L, Absolute Monocytes 0.2, Absolute Eosinophils 0, Absolute Basophils 0, Urine Color YEL, Urine Clarity CLEAR, Urine pH 6.0, Ur Specific [place] 1.020, Urine Protein TRACE H, Urine Ketones 15 H, Urine Nitrite NEG, Urine Bilirubin NEG, Urine Urobilinogen 0.2, Ur Leukocyte Esterase NEG, Ur Microscopic SEDIMENT EXAMINED, Urine RBC 1-3, Urine Bacteria FEW H, Urine Hemoglobin TRACE-INTACT H, Urine Glucose NEG Microbiology 03/14 1543 STOOL: Cryptosporidium Antigen - COLB 03/14 1543 STOOL: Giardia Antigen (MILTON) - COLB 03/14 1543 STOOL: Clostridium difficile Toxin A & B - COLB 03/14 1543 STOOL: Stool Culture - COLB Assessment/Plan Assessment: 77-year-old gentleman with past medical history of parkinsonism, autonomic Neuropathy, Atrial Fibrillation s/p Pacemaker not on anticoagulation, EtOH Dependence, Hypertension, Hyperlipidemia, GERD Came with complaints of diarrhea and right side hand tremors. Assessment and plan 1. Hypertensive urgency-patient is on midodrine for autonomic hypotension. Patient is admitted for hypertensive urgency. Today systolic blood pressures in 130s. We will continue holding his midodrine and olmesartan. Patient had unsteady gait in the ED and hence needs a physical therapy evaluation 2. Diarrhea-unsure of his history though his was in the ED upon presentation complained of nausea and vomiting. We will follow-up with stool culture, C. difficile, Giardia and Cryptosporidium has been sent from ED. Problem List: 1. Parkinsons disease Pain Ratin Pain Location: none Pain Goal: Remain pain free Pain Plan: tylenol Tomorrow's Labs & Rationales: cbc,bep Tevin YEN,Amir 03/15/18 1537: Attending MD Review Statement Attending Statement Attending MD Statement: examined this patient, discuss w/resident/PA/MODEL BUILDER, agreed w/resident/PA/MODEL BUILDER, reviewed EMR data (avail), discussed with nursing
[2018-03-15 14:37] VITALS: BP 100/60
[2018-03-15 21:30] VITALS: BP 182/120
[2018-03-15 23:16] VITALS: BP 186/104
[2018-03-16 07:08] VITALS: BP 180/110
--- NOTE | 2018-03-16 09:03 | PN- Housestaff ---
Emely Soto 03/16/18 0903: Subjective Follow-up For: HTN urgency, diarrheaX 4days Complaints: no complaints Tele-Events Since Last Visit: NSR Subjective: Pt seen and examined sitting in bed in NAD. he does complain of a couple of episodes of lose stools, no other complaints, no acute events overnight Review of Systems Constitutional: Reports: see HPI. Objective Last 24 Hrs of Vital Signs/I&O Vital Signs Date Time Temp Pulse Resp B/P B/P Pulse O2 O2 Flow FiO2 Mean Ox Delivery Rate 03/16 2333 83 18 182/110 03/16 2227 98.4 75 20 182/100 97 03/16 1436 98.4 69 20 132/98 96 Room Air 03/16 1100 86 128/84 03/16 0816 62 180/110 03/16 0708 98.6 62 20 180/110 94 Intake & Output 03/17 0800 03/17 0000 03/16 1600 Intake Total 400 Output Total 150 300 Balance -150 100 Intake, Oral 400 Number 2 Bowel Movements Output, Urine 150 300 Physical Exam General Appearance: Alert, Oriented X3, Cooperative, No Acute Distress Skin: No Rashes, No Breakdown, No Significant Lesion HEENT: Atraumatic, Mucous Membr. moist/pink Neck: Supple Cardiovascular: Regular Rate, Normal S1, Normal S2, No Murmurs Lungs: Clear to Auscultation, Normal Air Movement Abdomen: Normal Bowel Sounds, Soft, No Tenderness, No Hepatospenomegaly, No Masses Neurological: Normal Speech Extremities: No Clubbing, No Cyanosis, No Edema Assessment/Plan Assessment: 77-year-old gentleman with past medical history of parkinsonism, autonomic Neuropathy, Atrial Fibrillation s/p Pacemaker not on anticoagulation, EtOH Dependence, Hypertension, Hyperlipidemia, GERD Came with complaints of diarrhea and right side hand tremors. Problems: 1. HTN urgency 2. Diarrhea Assessment and plan: 1. Hypertensive urgency -BP 180/100 this am - Cont losartan, aspirin, statin, trazodone - Sharee midodrine for autonomic hypotension We will continue holding his midodrine and olmesartan. 2. Diarrhea -c diff EIA A& B came back Negative - K was 2.2, Mag 1.2. We replaced both these electrolytes - monitor K and Mag. we will replete as necessary Code status: full code Diet: Heart healthy DVT Px: heparin Problem List: 1. Parkinsons disease Pain Ratin Pain Location: none Pain Goal: Remain pain free Pain Plan: follow pain pathway Tomorrow's Labs & Rationales: cbc, bep Tevin YEN,Amir 03/16/18 1113: Attending MD Review Statement Attending Statement Attending MD Statement: examined this patient, discuss w/resident/PA/TRANSMISSION OPERATOR, agreed w/resident/PA/TRANSMISSION OPERATOR, reviewed EMR data (avail), discussed with nursing Attending Assessment/Plan: Pt was seen and evalauted. Cont to have diarrhea --replete lytes (K & Mag) as needed --optimize meds to better control BP --cont meds for PD --rest of the plan as per resident's note
[2018-03-16 11:00] VITALS: BP 128/84
[2018-03-16 14:36] VITALS: BP 132/98
[2018-03-16 22:27] VITALS: BP 182/100
[2018-03-17 05:28] VITALS: BP 162/106
[2018-03-17 06:43] VITALS: BP 162/106
--- NOTE | 2018-03-17 12:20 | Discharge Summary ---
Visit Information Visit Dates Admission Date: 03/14/18 Hospital Course Course Attending Physician: Neo YEN,Herbert Primary Care Physician: Carlos YEN,[facility] Hospital Course: 77-year-old gentleman with past medical history of parkinsonism, autonomic Neuropathy, Atrial Fibrillation s/p Pacemaker not on anticoagulation, EtOH Dependence, Hypertension, Hyperlipidemia, GERD Came with complaints of diarrhea and right side hand tremors. Patient is a poor historian. According to the patient was in usual state of health until today morning, started developing tremors in his right hand which he came secondary due to Parkinson disease. He is unsure when he had this carbidopa but was able to tell that he takes it 4 times a day 1.5 mg. Patient also complains of multiple episodes of diarrhea which is not associated with blood. He denies nausea, vomiting, headache, nausea, vomiting, chest pain, palpitations, weakness, abdominal pain, fever, chills, dizziness, vision changes. He endorses taking his medications regularly. At baseline patient uses walker at home. He denies recent fall. He is aware that he has unsteady gait but would like to go back home. Hospital course Patient admitted for hypertensive urgency. Patient has autonomic neuropathy and is on midodrine. Upon admission his blood pressure systolic was 180s. He was given losartan. During the hospital course patient had soft blood pressure with a systolic of 90s. Hence all antihypertensive medications were held. Upon discharge patient was sent home with Patient also complained of multiple episodes of diarrhea. C. difficile negative. Stool cultures pending. Patient did not have any further episodes of diarrhea during the hospital stay. Allergies: Coded Allergies: lorazepam (Intermediate, HALUCINATIONS, AGITATION 12/26/16) Pertinent Lab Results: CT abdomen and pelvis 1. No change in position of the 1 cm stone at the right ureteropelvic junction of the right kidney without significant hydronephrosis. No change of the stones in the right kidney calyces as well. Stable large cyst involving the kidney impressing upon the renal pelvis. 2. No acute change of the bowel. Chest x-ray No acute abnormality of the chest. Disposition Summary Disposition Principal Diagnosis: Hypertensive urgency-resolved Additional Diagnosis: Parkinsonism Discharge Disposition: SNF Discharge Instructions General Discharge Information Code Status: Full Code Patient's Diet: Heart healthy diet Patient's Activity: As tolerated Follow-Up Instructions/Appts: Follow-up with primary care physician/neurologist within 1-2 weeks of discharge Medications at Discharge Discharge Medications: Continue taking these medications: Aspirin (Lo-Dose Aspirin EC) 81 MG TABLET.DR 1 Tablet ORAL DAILY Comments: Last Taken: 12/31/16 Time: 10:30 AM Rosuvastatin Calcium (Crestor) 10 MG TABLET 1 Tablet ORAL DAILY Qty = 90 Comments: NOT TAKEN IN HOSPITAL, ATORVISTATIN USED INSTEAD. Last Taken: 12/30/16 Time: 5:00 PM Cyanocobalamin (Vitamin B-12) 1,000 MCG TABLET 1 Tablet ORAL DAILY Comments: Last Taken: 12/31/16 Time: 10:30 AM Lactobacillus Acidophilus (Probiotic) 10 BILLION CELL CAPSULE 1 Capsule ORAL as needed for GI Trazodone HCl (Trazodone HCl) 50 MG TABLET 25 Milligram ORAL TWICE DAILY as needed for ANXIETY/AGITATION/INSOMNIA Qty = 30 Comments: NOT TAKEN IN HOSPITAL Carbidopa/Levodopa (Carbidopa-Levodopa 25-100 Tab) 25 MG-100 MG TABLET 1.5 Tablet ORAL EVERY SIX HOURS Qty = 180 Potassium Chloride (Potassium Chloride) 20 MEQ TAB.ER.PRT 1 Tablet ORAL TWICE DAILY Qty = 180 Magnesium Oxide (Magnesium Oxide) 400 MG TABLET 1 Tablet ORAL TWICE DAILY Qty = 180 Olmesartan Medoxomil (Benicar) 20 MG TABLET 1 Tablet ORAL DAILY Copies To: Carlos YEN,Cierra
--- NOTE | 2018-03-17 14:01 | PN- Housestaff ---
Subjective Follow-up For: Hypertensive urgency Diarrheal episodes Tele-Events Since Last Visit: Patient in atrial fibrillation from rate 6873 overnight, with sinus pacing Subjective: Patient seen resting comfortably in the bed. In no acute distress. Reports improvement with diarrhea, no recent episodes. Patient denies chest pain, shortness of breath, palpitations, or dizziness. Shortly after seeing this patient in the morning, he reported a symptomatic bout of hypotension, in which he reported dizziness, feeling unwell, and visual changes with tightness pressing around his forehead and eyes. This occurred after eating breakfast, when he was sitting in the chair at the bedside. Nursing was notified, and put his legs up which improved his symptomatology. Review of Systems Constitutional: Denies: chills, diaphoresis, fever, malaise. Objective Last 24 Hrs of Vital Signs/I&O Vital Signs Date Time Temp Pulse Resp B/P B/P Pulse O2 O2 Flow FiO2 Mean Ox Delivery Rate 03/17 0936 98.0 78 18 84/52 03/17 0643 98.4 83 18 162/106 98 Room Air 03/17 0528 76 162/106 03/17 0333 77 18 176/104 03/16 2333 83 18 182/110 03/16 2227 98.4 75 20 182/100 97 03/16 1436 98.4 69 20 132/98 96 Room Air Intake & Output 03/17 1600 03/17 0800 03/17 0000 Intake Total 120 120 Output Total 125 1 350 Balance -125 119 -230 Intake, Oral 120 120 Number 1 1 Bowel Movements Output, Stool 1 Output, Urine 125 350 Patient 107.048 kg Weight Weight Bed scale Measurement Method Physical Exam General Appearance: Alert, Oriented X3, Cooperative, No Acute Distress HEENT: Atraumatic, PERRLA, EOMI Neck: Supple, No JVD Cardiovascular: Regular Rate, Normal S1, Normal S2, No Murmurs Lungs: Clear to Auscultation, Normal Air Movement Abdomen: Normal Bowel Sounds, Soft, No Tenderness Current Medications: Current Medications Sig/Gumaro Start time Last Medication Dose Route Stop Time Status Admin Aspirin Buffered 81 MG DAILY 03/15 0900 AC 03/17 PO 0935 Atorvastatin Calcium 40 MG 1700 03/15 1700 AC 03/16 PO 1735 Carbidopa/Levodopa 1.5 TAB Q6 03/14 2359 AC 03/17 PO 0530 Heparin Sodium 5,000 UNIT Q8 03/15 0054 AC 03/17 (Porcine) SC 0530 Hydralazine HCl 5 MG ONCE ONE 03/17 0330 DC 03/17 IV 03/17 0331 0333 Losartan Potassium 100 MG DAILY 03/17 0900 AC PO Losartan Potassium 50 MG ONCE ONE 03/16 2245 DC 03/16 PO 03/16 2246 2333 Losartan Potassium 50 MG DAILY 03/16 0900 DC 03/16 PO 0816 Sodium Chloride 1,000 ML ONCE ONE 03/16 1645 DC 03/16 IV 03/17 1244 2333 Trazodone HCl 25 MG BID PRN 03/14 2345 AC PO Last 24 Hrs of Lab/[place] Results Last 24 Hrs of Labs/Mics: Laboratory Tests 03/17/18 0605: Anion Gap 12, Estimated GFR > 60, BUN/Creatinine Ratio 32.9 H, Magnesium 1.9 Assessment/Plan Assessment: 77-year-old gentleman with past medical history of parkinsonism, autonomic Neuropathy, Atrial Fibrillation s/p Pacemaker not on anticoagulation, EtOH Dependence, Hypertension, Hyperlipidemia, GERD Came with complaints of diarrhea and right sided hand tremors. Patient's potassium was 3.4 this morning, repleting for hypokalemia as necessary. Stool negative for C. difficile, stool culture preliminary shows mixed margarette and diarrhea seems to be improving. Blood pressure this morning was labile. Systolic in the 160s in the morning, but BP of 84/52 after patient ate breakfast and began to feel dizzy. Patient is positive for orthostatic hypotension, and required close following is a max assist per PT recommendations. Problems: 1. Hypertensive urgency 2. Diarrhea 3. Orthostatic hypotension 4. Parkinson's disease Plan: * Losartan 100 mg p.o. daily * Continue Sinemet and trazodone * Start midodrine 5 mg 3 times daily, per home regimen for hypertension * Follow-up stool culture Full code Heparin for DVT prophylaxis CBC & BEP with magnesium Regular diet Problem List: 1. Hypertensive urgency 2. Multifactorial gait disorder 3. Parkinsons disease 4. Autonomic neuropathy 5. Diarrhea Pain Ratin Pain Location: None Pain Goal: Pain 4 or less Pain Plan: Per pathway Tomorrow's Labs & Rationales: BEP, mag, CBC
[2018-03-17 14:05] VITALS: BP 108/70
--- NOTE | 2018-03-17 14:39 | PN- Att Addend ---
Attending Addendum Attending Brief Note Patient seen and examined. Complains of dizziness this morning. Nursing staff reports significant orthostatic blood pressure changes. Symptoms became worse with position change. Examination was opted to be like this. He is alert and oriented 3 however he does have occasional episodes of confusion. No gross focal neurologic deficit on examination. Given his autonomic dysfunction we will likely have to tolerate some degree of supine hypertension in other to avoid significant hypotension with positional changes. For now I would recommend resuming his midodrine in the morning and afternoon. Resume Benicar 20 mg daily however administer only for supine blood pressure greater than 180 systolic.
[2018-03-17 22:10] VITALS: BP 128/76
[2018-03-18 06:37] VITALS: BP 180/80
--- NOTE | 2018-03-18 07:11 | PN- Housestaff ---
See Addendum Kaushal Rogers 03/18/18 0709: Subjective Follow-up For: Hypertensive urgency Diarrhea Tele-Events Since Last Visit: Overnight in atrial fibrillation from rates 73-89 Subjective: Patient seen resting comfortably in the bed. In no acute distress. Overnight, he had another episode of dizziness after eating, reportedly associated with hypotension. He also complained of frequent bouts of diarrhea throughout the night, but this was not associated with nausea or abdominal pain, and the diarrhea was watery nonbloody. The previous evening, the patient reportedly experienced bloating, but currently he denies any abdominal discomfort. Patient denies chest pain, shortness of breath, palpitations, or dizziness at the moment. Review of Systems Constitutional: Denies: chills, diaphoresis, malaise. Objective Last 24 Hrs of Vital Signs/I&O Vital Signs Date Time Temp Pulse Resp B/P B/P Pulse O2 O2 Flow FiO2 Mean Ox Delivery Rate 03/18 0637 97.8 74 26 180/80 95 03/17 2210 98.2 125 26 128/76 100 03/17 2133 Room Air 03/17 1405 97.5 62 16 108/70 97 Room Air 03/17 0936 98.0 78 18 84/52 Intake & Output 03/18 0800 03/18 0000 03/17 1600 Intake Total 150 240 680 Output Total 225 325 275 Balance -75 -85 405 Intake, Oral 150 240 680 Number 1 5 Bowel Movements Output, Urine 225 325 275 Patient 107.983 kg Weight Physical Exam General Appearance: Alert, Oriented X3, Cooperative, No Acute Distress HEENT: Atraumatic, PERRLA, EOMI Neck: Supple, No JVD Cardiovascular: Normal S1, Normal S2, No Murmurs, Irregular rate Lungs: Clear to Auscultation Current Medications: Current Medications Sig/Gumaro Start time Last Medication Dose Route Stop Time Status Admin Aspirin Buffered 81 MG DAILY 03/15 0900 AC 03/17 PO 0935 Atorvastatin Calcium 40 MG 1700 03/15 1700 AC 03/17 PO 1733 Carbidopa/Levodopa 1.5 TAB Q6 03/14 2359 AC 03/18 PO 0554 Heparin Sodium 5,000 UNIT Q8 03/15 0054 AC 03/18 (Porcine) SC 0554 Losartan Potassium 50 MG DAILY NEEDED PRN 03/17 1545 AC PO Losartan Potassium 100 MG DAILY 03/17 0900 DC PO Midodrine 5 MG 1300 03/18 1300 AC PO Midodrine 5 MG QAM 03/18 0900 AC PO Midodrine 5 MG QAM PRN 03/18 0000 DC PO Midodrine 5 MG 1800 03/17 1800 AC PO Midodrine 5 MG 1800 PRN 03/17 1500 DC PO 03/17 1759 Midodrine 5 MG 1300 PRN 03/17 1500 AC PO 03/18 1259 Potassium Chloride 40 MEQ ONCE ONE 03/17 1515 DC 03/17 PO 03/17 1516 1556 Sodium Chloride 1,000 ML ONCE ONE 03/16 1645 DC 03/16 IV 03/17 1244 2333 Trazodone HCl 25 MG BID PRN 03/14 2345 AC PO Last 24 Hrs of Lab/[place] Results Last 24 Hrs of Labs/Mics: Laboratory Tests 03/18/18 0605: Sodium Pending, Potassium Pending, Chloride Pending, Carbon Dioxide Pending, Anion Gap Pending, BUN Pending, Creatinine Pending, BUN/Creatinine Ratio Pending , Magnesium Pending, CBC w Diff Pending, WBC Pending, RBC Pending, Hgb Pending, Hct Pending, MCV Pending, MCH Pending, MCHC Pending, RDW Pending, Plt Count Pending, MPV Pending Assessment/Plan Assessment: 77-year-old gentleman with past medical history of parkinsonism, autonomic Neuropathy, Atrial Fibrillation s/p Pacemaker not on anticoagulation, EtOH Dependence, Hypertension, Hyperlipidemia, GERD Came with complaints of diarrhea and right sided hand tremors. Patient's potassium was 3.9 this morning, monitoring and repleting for hypokalemia as necessary. Stool negative for C. difficile, stool culture preliminary shows mixed margarette and diarrhea seems to be improving. With continued diarrhea overnight, GI was consulted. Awaiting their recommendations. Blood pressure this morning was labile. Systolic of 180 this morning, losartan given. Patient is positive for orthostatic hypotension, and requires close following. PT saw this morning and recommended patient go home with assistance, is a +1 assist at home and able to ambulate as long as he is not hypotensive and symptomatic. Problems: 1. Hypertensive urgency 2. Diarrhea 3. Orthostatic hypotension 4. Parkinson's disease Plan: * GI consulted, will follow recommendations * Imodium added * Continue losartan 100 mg p.o. daily * Continue Sinemet and trazodone * Continued midodrine 5 mg 3 times daily, per home regimen for hypertension * Follow-up stool culture Full code Heparin for DVT prophylaxis CBC & BEP with magnesium Regular diet Problem List: 1. Parkinsons disease 2. Hypertensive urgency 3. Diarrhea Pain Ratin Pain Location: None Pain Goal: Pain 4 or less Pain Plan: Per pathway Tomorrow's Labs & Rationales: CBC & BEP magnesium Herbert Larson MD 03/18/18 1050: Attending MD Review Statement Attending Statement Attending MD Statement: examined this patient, discuss w/resident/PA/PHOTO PRODUCER, agreed w/resident/PA/PHOTO PRODUCER, reviewed EMR data (avail), discussed with nursing, discussed with case mgmt, amended to note Attending Assessment/Plan: Patient seen and examined. Reported that dizziness had improved a complained of mild dizziness this morning soon after waking up. Denies chest pain. Denies palpitations. No events on telemetry monitoring. Is having several loose bowel movements. Admitted to mild abdominal cramping which has resolved. Denies any blood in the stools. He is afebrile. He is hemodynamically stable. Stool studies are negative for C. difficile. Blood pressure has improved. No significant hypotensive episodes documented so far today. Problems: 1. Hypertensive urgency 2. Diarrhea 3. Orthostatic hypotension 4. Parkinson's disease Plan: -Continue to administer antihypertensive regimen only when systolic blood pressures greater than 180 systolic. -Administer his midodrine [id number] following meals. -Physical therapy to mobilize patient. -Continue carbidopa/levodopa. -Begin Imodium for his noninfectious diarrhea. Obtain GI consultation if diarrhea persists. -Discharge planning once diarrhea resolves and blood pressure remains stable.
[2018-03-18 07:51] LABS: ABSOLUTE BASOPHIL COUNT 0 /CUMM (0.0-0.2); ABSOLUTE EOSINOPHIL COUNT 0.1 /CUMM (0.0-0.7); ABSOLUTE GRANULOCYTE CT 2.5 /CUMM (1.4-6.5); ABSOLUTE LYMPH COUNT 1.1 /CUMM (1.2-3.4); ABSOLUTE MONOCYTE COUNT 0.5 /CUMM (0.10-0.60); BASOPHIL % 0.6 % (0.0-2.0); EOSINOPHIL % 2.6 % (0-5); GRANULOCYTE % 59.5 % (42.2-75.2); MEAN CORPUSCULAR HGB 31.8 PG (27.0-31.0); MEAN CORPUSCULAR HGB CONC 33.7 G/DL (33.0-37.0); MEAN CORPUSCULAR VOLUME 94.6 FL (80.0-94.0); MEAN PLATELET VOLUME 8.7 FL (7.4-10.4); PLATELET COUNT 114 /CUMM (130-400); RBC DISTRIBUTION WIDTH 13.3 % (11.5-14.5); RED BLOOD CELL CT 4.33 /CUMM (4.70-6.10); WHITE BLOOD CELL COUNT 4.3 /CUMM (4.8-10.8)
[2018-03-18 14:42] VITALS: BP 156/98
--- NOTE | 2018-03-18 18:04 | Cons- Gastroenterology ---
General Information and HPI Consulting Request Date of Consult: 03/18/18 Requested By: Herbert Larson MD Reason for Consult: 1. Diarrhea 2. Alcohol abuse 3. Parkinson's disease Source of Information: patient, family Exam Limitations: poor historian History of Present Illness: Mr. Nielsen is a 77-year-old male with a long history of alcohol abuse who presented to [facility] with a chief complaint of dizziness. He has a past medical history significant for parkinsonism, autonomic neuropathy, Atrial Fibrillation s/p Pacemaker and is not on anticoagulation, Hypertension, Hyperlipidemia, and GERD. Mr. Nielsen is a poor history so much of this history is per his step daughter and his . The patient presented with a chief complaint of diarrhea and right sided hand tremors. According to the patient's stepdaughter and everyone in the family had a viral enteritis characterized by nausea vomiting and diarrhea which began on evening. The patient's , step-daughter , and her two children have all been sick for several days and are only now feeling better. Further the patient has had a long history of constipation as well as diarrhea. He takes Miralax at home and since he has been using this on a daily basis has had neither constipation nor diarrhea. He is had a workup for diarrhea in the past and sees a furnace stock inspector in [place] name Dr. Anderson. He is also been seen at [facility] and had a colonoscopy there several years ago. He has not taken any antibiotics recently. Prior to that viral enteritis which is family has experienced over the past several days he had had a normal bowel habit. Mr. Nielsen feels that his diarrheal stools are becoming more formed. On arrival in the ED he had a CT scan of the abdomen and pelvis results are as follows. CT abdomen and pelvis No acute abnormality of the abdomen or the pelvis. 1. No change in position of the 1 cm stone at the right ureteropelvic junction of the right kidney without significant hydronephrosis. No change of the stones in the right kidney calyces as well. Stable large cyst involving the kidney impressing upon the renal pelvis. 2. No acute change of the bowel. Allergies/Medications Allergies: Coded Allergies: lorazepam (Intermediate, HALUCINATIONS, AGITATION 12/26/16) Home Med List: Aspirin (Lo-Dose Aspirin EC) 81 MG TABLET.DR 1 TAB PO DAILY HEART HEALTH ( Reported) Carbidopa/Levodopa (Carbidopa-Levodopa 25-100 Tab) 25 MG-100 MG TABLET 1.5 TAB PO Q6 PARKINSONS (Reported) Cyanocobalamin (Vitamin B-12) 1,000 MCG TABLET 1 TAB PO DAILY SUPPLEMENT ( Reported) Lactobacillus Acidophilus (Probiotic) 10 BILLION CELL CAPSULE 1 CAP PO PRN GI (Reported) Loperamide HCl (Loperamide) 2 MG CAPSULE 1 TAB PO Q6P PRN DIARRHEA Magnesium Oxide 400 MG TABLET 1 TAB PO BID SUPPLEMENT (Reported) Midodrine HCl 5 MG TABLET 2 TAB PO QAM BP (Reported) Midodrine HCl 5 MG TABLET 1 TAB PO 1300 BP (Reported) Midodrine HCl 5 MG TABLET 1 TAB PO 1800 BP (Reported) Olmesartan Medoxomil (Benicar) 20 MG TABLET 1 TAB PO DAILY HIGH BP (Reported) Only take if Systolic blood pressure is baove 180. Potassium Chloride 20 MEQ TAB.ER.PRT 1 TAB PO BID SUPPLEMENT (Reported) Rosuvastatin Calcium (Crestor) 10 MG TABLET 1 TAB PO DAILY HEART HEALTH ( Reported) Trazodone HCl 50 MG TABLET 25 MG PO BID PRN ANXIETY/AGITATION/INSOMNIA Current Medications: Current Medications Sig/Gumaro Start time Last Medication Dose Route Stop Time Status Admin Aspirin Buffered 81 MG DAILY 03/15 0900 AC 03/18 PO 0859 Atorvastatin Calcium 40 MG 1700 03/15 1700 AC 03/17 PO 1733 Carbidopa/Levodopa 1.5 TAB Q6 03/14 2359 AC 03/18 PO 1145 Heparin Sodium 5,000 UNIT Q8 03/15 0054 AC 03/18 (Porcine) SC 1431 Loperamide HCl 4 MG ONE ONE 03/18 09 DC 03/18 PO 03/18 0901 0901 Loperamide HCl 2 MG Q6P PRN 03/18 0845 AC PO Losartan Potassium 50 MG DAILY NEEDED PRN 03/17 1545 AC PO Magnesium Oxide 400 MG ONE ONE 03/18 0900 DC 03/18 PO 03/18 0901 0901 Midodrine 5 MG 1300 03/18 1300 AC 03/18 PO 1432 Midodrine 5 MG QAM 03/18 0900 AC 03/18 PO 0935 Midodrine 5 MG 1800 03/17 1800 AC PO Midodrine 5 MG 1800 PRN 03/17 1500 DC PO 03/17 1759 Midodrine 5 MG 1300 PRN 03/17 1500 DC PO 03/18 1259 Patient Medication 1 ED ONE ONE 03/18 1615 DC Teaching ED 03/18 1616 Trazodone HCl 25 MG BID PRN 03/14 2345 AC PO Past History Travel History Traveled to [place] past 21 day No Medical History Neurological: Parkinson's disease Cardiovascular: AFIB, hypertension, hyperlipidemia Gastrointestinal: GERD Endocrine: diabetes 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 spouse Services at Home: None Smoking Status: Former Smoker ETOH Use: heavy use Illicit Drug Use: denies illicit drug use Employment History Employment: Retired Exam & Diagnostic Data Vital Signs and I&O Vital Signs Date Time Temp Pulse Resp B/P B/P Pulse O2 O2 Flow FiO2 Mean Ox Delivery Rate 03/18 1442 97.5 60 18 156/98 97 Room Air 03/18 0637 97.8 74 26 180/80 95 03/17 2210 98.2 125 26 128/76 100 03/17 2133 Room Air Intake & Output 03/18 1600 03/18 0400 03/17 1600 03/17 0400 03/16 1600 03/16 0400 Intake Total 150 240 800 120 640 200 Output Total 225 325 276 350 475 300 Balance -75 -85 524 -230 165 -100 Intake, Oral 150 240 800 120 640 200 Number 1 5 1 1 2 6 Bowel Movements Output, Stool 1 Output, Urine 225 325 275 350 475 300 Patient 238 lb 236 lb 239 lb Weight Weight Bed scale Measurement Method Physical Exam General Appearance: well developed/nourished, no apparent distress, comfortable Head: atraumatic Eyes: Bilateral: normal appearance. Ears, Nose, Throat: hearing grossly normal Neck: normal inspection, supple Respiratory: lungs clear Cardiovascular: irregularly irregular Gastrointestinal: normal bowel sounds, soft, non-tender, no organomegaly Extremities: no edema Neurologic/Psych: awake, alert, abnormal gait, uses a walker Skin: intact, warm/dry Results Pertinent Lab Results: Laboratory Tests 03/18 03/18 03/17 1640 0605 0605 Chemistry Sodium (137 - 145 mmol/L) 141 142 Potassium (3.5 - 5.1 mmol/L) 3.9 3.4 L Chloride (98 - 107 mmol/L) 107 107 Carbon Dioxide (22 - 30 mmol/L) 23 23 Anion Gap (5 - 16) 11 12 BUN (9 - 20 mg/dL) 23 H 23 H Creatinine (0.7 - 1.2 mg/dL) 0.8 0.7 Estimated GFR (>60 ml/min) > 60 > 60 BUN/Creatinine Ratio (7 - 25 %) 28.8 H 32.9 H Magnesium (1.6 - 2.3 mg/dL) 1.8 1.9 Vitamin B12 Pending Folate Pending Hematology CBC w Diff NO MAN DIFF REQ WBC (4.8 - 10.8 /CUMM) 4.3 L RBC (4.70 - 6.10 /CUMM) 4.33 L Hgb (14.0 - 18.0 G/DL) 13.8 L Hct (42 - 52 %) 41.0 L MCV (80.0 - 94.0 FL) 94.6 H MCH (27.0 - 31.0 PG) 31.8 H MCHC (33.0 - 37.0 G/DL) 33.7 RDW (11.5 - 14.5 %) 13.3 Plt Count (130 - 400 /CUMM) 114 L MPV (7.4 - 10.4 FL) 8.7 Gran % (42.2 - 75.2 %) 59.5 Lymphocytes % (20.5 - 51.1 %) 25.8 Monocytes % (1.7 - 9.3 %) 11.5 H Eosinophils % (0 - 5 %) 2.6 Basophils % (0.0 - 2.0 %) 0.6 Absolute Granulocytes (1.4 - 6.5 /CUMM) 2.5 Absolute Lymphocytes (1.2 - 3.4 /CUMM) 1.1 L Absolute Monocytes (0.10 - 0.60 /CUMM) 0.5 Absolute Eosinophils (0.0 - 0.7 /CUMM) 0.1 Absolute Basophils (0.0 - 0.2 /CUMM) 0 03/16 03/16 1315 0710 Chemistry Sodium (137 - 145 mmol/L) 140 141 Potassium (3.5 - 5.1 mmol/L) 3.9 2.2 *L Chloride (98 - 107 mmol/L) 103 117 H Carbon Dioxide (22 - 30 mmol/L) 26 19 L Anion Gap (5 - 16) 11 6 BUN (9 - 20 mg/dL) 24 H 16 Creatinine (0.7 - 1.2 mg/dL) 0.9 0.5 L Estimated GFR (>60 ml/min) > 60 > 60 BUN/Creatinine Ratio (7 - 25 %) 26.7 H 32.0 H Magnesium (1.6 - 2.3 mg/dL) 2.2 1.2 L Assessment/Plan Assessment/Recommendations: ASSESSMENT: 1. Diarrhea. This is likely due to viral enteritis. However given patient's long history of alcohol abuse one must also consider at that patient may have underlying pancreatic insufficiency 2. Parkinsonism 3. History of alcohol abuse 4. Autonomic neuropathy RECOMMENDATIONS: 1. Would obtain stool for fecal fat and pancreatic elastase to rule out malabsorptive process as well as pancreatic insufficiency 2. Recheck B12 and folate as well as serum carotene to rule out malabsorptive process. Would also check trypsinogen and chymotrypsin to rule out pancreatic insufficiency 3. Will continue Lomotil 4. Believe this is all likely related to viral enteritis. Would encourage brat diet. Expect symptoms to resolve without intervention 5. Will follow clinical course. Patient may follow-up for further evaluation as needed with his own furnace stock inspector in [place]. Consult Acknowledgment - Thank you for your consult request.
[2018-03-18 22:05] VITALS: BP 164/88
[2018-03-19 06:40] VITALS: BP 146/88
--- NOTE | 2018-03-19 07:06 | PN- Housestaff ---
Kaushal Rogers 03/19/18 0705: Subjective Follow-up For: Hypertensive urgency Acute diarrhea Tele-Events Since Last Visit: Overnight the patient was in A. fib with rate 69-71, and episodes of sinus pacing Subjective: Patient seen sitting comfortably at the bedside, in no acute distress. Overnight he reports one episode of diarrhea, but denies abdominal pain or nausea. Also denies fever/chills, cough, chest pain, or palpitations. Later, during morning rounds, the patient experienced an episode of dizziness and difficulty breathing that he described as his "blood pressure going low", while seated in the chair at the bedside. He denied visual changes or loss of consciousness and his symptoms resolved almost immediately. Review of Systems Constitutional: Denies: chills, diaphoresis, fever. Objective Last 24 Hrs of Vital Signs/I&O Vital Signs Date Time Temp Pulse Resp B/P B/P Pulse O2 O2 Flow FiO2 Mean Ox Delivery Rate 03/19 0640 98.0 73 18 146/88 96 Room Air 03/18 2205 98.4 67 18 164/88 98 03/18 1442 97.5 60 18 156/98 97 Room Air Intake & Output 03/19 0800 03/19 0000 03/18 1600 Intake Total 120 120 680 Output Total 225 50 Balance -105 70 680 Intake, Oral 120 120 680 Number 1 2 Bowel Movements Output, Urine 225 50 Patient 104.95 kg Weight Physical Exam General Appearance: Alert, Oriented X3, Cooperative, No Acute Distress HEENT: Atraumatic, PERRLA Neck: Supple, No JVD Cardiovascular: Regular Rate, Normal S1, Normal S2, No Murmurs Lungs: Clear to Auscultation Abdomen: Normal Bowel Sounds, Soft, No Tenderness Neurological: Normal Gait, Normal Speech, Strength at 5/5 X4 Ext Current Medications: Current Medications Sig/Gumaro Start time Last Medication Dose Route Stop Time Status Admin Aspirin Buffered 81 MG DAILY 03/15 0900 AC 03/18 PO 0859 Atorvastatin Calcium 40 MG 1700 03/15 1700 AC 03/18 PO 1807 Carbidopa/Levodopa 1.5 TAB Q6 03/14 2359 AC 03/19 PO 0609 Heparin Sodium 5,000 UNIT Q8 03/15 0054 AC 03/19 (Porcine) SC 0610 Loperamide HCl 4 MG ONE ONE 03/18 09 DC 03/18 PO 03/18 0901 0901 Loperamide HCl 2 MG Q6P PRN 03/18 0845 AC PO Losartan Potassium 50 MG DAILY NEEDED PRN 03/17 1545 AC PO Magnesium Oxide 400 MG ONE ONE 03/18 0900 DC 03/18 PO 03/18 0901 0901 Midodrine 5 MG 1300 03/18 1300 AC 03/18 PO 1432 Midodrine 5 MG QAM 03/18 0900 AC 03/18 PO 0935 Midodrine 5 MG 1800 03/17 1800 AC 03/18 PO 1807 Midodrine 5 MG 1300 PRN 03/17 1500 DC PO 03/18 1259 Patient Medication 1 ED ONE ONE 03/18 1615 DC 03/18 Teaching ED 03/18 1616 1808 Trazodone HCl 25 MG BID PRN 03/14 2345 AC PO Last 24 Hrs of Lab/[place] Results Last 24 Hrs of Labs/Mics: Laboratory Tests 03/19/18 0643: Carotene Pending 03/19/18 0643: Sodium Pending, Potassium Pending, Chloride Pending, Carbon Dioxide Pending, Anion Gap Pending, BUN Pending, Creatinine Pending, BUN/Creatinine Ratio Pending , Magnesium Pending, CBC w Diff Pending, WBC Pending, RBC Pending, Hgb Pending, Hct Pending, MCV Pending, MCH Pending, MCHC Pending, RDW Pending, Plt Count Pending, MPV Pending, Ref Lab Test Result Pending 03/18/18 1910: Ref Lab Test Result Pending, Stl Pancreat Elastase 1 Pending 03/18/18 1640: Vitamin B12 > 1000 H, Folate 11.3 Assessment/Plan Assessment: 77-year-old gentleman with past medical history of parkinsonism, autonomic Neuropathy, Atrial Fibrillation s/p Pacemaker not on anticoagulation, EtOH Dependence, Hypertension, Hyperlipidemia, GERD Came with complaints of diarrhea and right sided hand tremors. Patient's potassium was 3.7 this morning, monitoring and repleting for hypokalemia as necessary. Stool negative for C. difficile, final stool culture shows mixed margarette and diarrhea seems to be improving with only one episode of loose stool overnight. Patient instructed to follow-up remaining GI tests regarding diarrhea as outpatient. Blood pressure this morning was better controlled, with BP of 146/88. PT worked with the patient on the stairs, ok to go home. Problems: 1. Hypertensive urgency 2. Diarrhea 3. Orthostatic hypotension 4. Parkinson's disease Plan: * Follow-up diarrhea work-up as outpatient * Continue imodium * Continue losartan 100 mg p.o. daily PRN SBP > 180 * Continue Sinemet and trazodone * Continued midodrine 5 mg 3 times daily, per home regimen for hypertension Full code Heparin for DVT prophylaxis Regular diet Problem List: 1. Hypertensive urgency 2. Parkinsons disease 3. Diarrhea Pain Ratin Pain Location: none Pain Goal: Pain 4 or less Pain Plan: per pathway Tomorrow's Labs & Rationales: none Neo YENHerbert 03/19/18 1054: Attending MD Review Statement Attending Statement Attending MD Statement: examined this patient, discuss w/resident/PA/MEDICAL SURGICAL TECH, agreed w/resident/PA/MEDICAL SURGICAL TECH, reviewed EMR data (avail), discussed with nursing, discussed with case mgmt, amended to note Attending Assessment/Plan: Patient seen and examined. Resting comfortably and not in any acute distress. Denies any dizziness this morning. No issues overnight reported by nursing staff. Blood pressure is stable this morning. He is ambulatory physical therapy and cleared for discharge home. He was started on Imodium yesterday with improvement in his bowel habits. He was evaluated by the gastroenterology service yesterday. He does not appear that his diarrhea is of infectious etiology. At this stage he is medically stable to be discharged home. He will continue Imodium for the diarrhea as needed. Stool workup will be followed by his primary care provider as an outpatient. He will continue his routine meds. He will continue his midodrine after meals and he is to receive his blood pressure medications for systolic blood pressure greater than 180.
[2018-03-19 07:56] LABS: ABSOLUTE BASOPHIL COUNT 0 /CUMM (0.0-0.2); ABSOLUTE EOSINOPHIL COUNT 0.2 /CUMM (0.0-0.7); ABSOLUTE GRANULOCYTE CT 2.5 /CUMM (1.4-6.5); ABSOLUTE LYMPH COUNT 1.3 /CUMM (1.2-3.4); ABSOLUTE MONOCYTE COUNT 0.5 /CUMM (0.10-0.60); BASOPHIL % 0.5 % (0.0-2.0); EOSINOPHIL % 3.9 % (0-5); GRANULOCYTE % 56.4 % (42.2-75.2); HEMATOCRIT 39.6 % (42-52); MEAN CORPUSCULAR HGB 31.8 PG (27.0-31.0); MEAN CORPUSCULAR HGB CONC 33.6 G/DL (33.0-37.0); MEAN CORPUSCULAR VOLUME 94.5 FL (80.0-94.0); MEAN PLATELET VOLUME 8.1 FL (7.4-10.4); PLATELET COUNT 118 /CUMM (130-400); RBC DISTRIBUTION WIDTH 13.3 % (11.5-14.5); RED BLOOD CELL CT 4.18 /CUMM (4.70-6.10); WHITE BLOOD CELL COUNT 4.5 /CUMM (4.8-10.8)
[2018-03-19] MEDS ORDERED: LOPERAMIDE2 M2 PO (09:16)
--- NOTE | 2018-03-19 09:18 | Patient Discharge Instructions ---
Discharge Instructions General Discharge Information You were seen/treated for: HTN Urgency Special Instructions: Please follow up with your PCP within a week after discharge. Please take your BP medication only if your Systolic BP is above 180. Diet Continue normal diet: Yes Activity Full Activity/No Limits: Yes Acute Coronary Syndrome Inclusion Criteria At DC or during hospital stay patient has or had the following: ACS DIAGNOSIS No Discharge Core Measures Meds if any: Prescribed or Continued at Discharge Meds if any: NOT Prescribed or Continued at Discharge Congestive Heart Failure Inclusion Criteria At DC or during hospital stay patient has or had the following: CHF DIAGNOSIS No Discharge Core Measures Meds if any: Prescribed or Continued at Discharge Meds if any: NOT Prescribed or Continued at Discharge Cerebrovascular accident Inclusion Criteria At DC or during hospital stay patient has or had the following: CVA/TIA Diagnosis No Discharge Core Measures Meds if any: Prescribed or Continued at Discharge Meds if any: NOT Prescribed or Continued at Discharge Venous thromboembolism Inclusion Criteria VTE Diagnosis No VTE Type NONE VTE Confirmed by (Test) NONE Discharge Core Measures - Per Current guidelines, there needs to be overlap - treatment for the first 5 days of Warfarin therapy. - If discharged on Warfarin prior to 5 days of - overlap therapy, the patient will need to be - assessed for post discharge needs including - *Post discharge parental anticoagulation - *Warfarin and/or parental anticoagulation education - *Follow up date to check INR post discharge At least 5 days overlap therapy as Inpatient No Meds if any: Prescribed or Continued at Discharge Note: Overlap Therapy is Warfarin and Anticoagulant Meds if any: NOT Prescribed or Continued at Discharge
== END 2018-03-19 13:33 | disposition home health service (06) | DRG 305 ==
LOC: ERH 14:51 → 1NO 19:34 → ERHI 19:34 → ENRESERV 20:29 → CANRESERV 20:29 → EDBEDREQTM 20:37 → EDBEDREQ 20:37 → ENRESERV 21:57 → ENTRNSPT 22:23 → EDTRNSPT 22:38 → EDTRNSPTSTS 22:38 → EDTRNSPT 22:44 → 1NO 22:54 → CMPTRNSPT 03-15 07:11 → 1NO 03-15 15:54 → ENPENDDIS 03-19 09:21 → ENTRNSPT 03-19 13:08 → EDTRNSPTSTS 03-19 13:21 → EDTRNSPT 03-19 13:21 → 1NO 03-19 13:33 → CMPTRNSPT 03-19 13:36
PROVIDERS: Physician Assistant Medical; Student in an Organized Health Care Education/Training Program
DX: I16.0 Hypertensive urgency (principal); G90.9 Disorder of the autonomic nervous system, unspecified; G20 Parkinson's disease; R26.9 Unspecified abnormalities of gait and mobility; T42.8X6A Underdosing of antiparkinsonism drugs and other central muscle-tone depressants, initial encounter; E87.6 Hypokalemia; I48.91 Unspecified atrial fibrillation; Z95.0 Presence of cardiac pacemaker; F10.20 Alcohol dependence, uncomplicated; I95.1 Orthostatic hypotension; E11.9 Type 2 diabetes mellitus without complications; L89.310 Pressure ulcer of right buttock, unstageable; K21.9 Gastro-esophageal reflux disease without esophagitis; E78.5 Hyperlipidemia, unspecified; Z87.891 Personal history of nicotine dependence; R19.7 Diarrhea, unspecified
CPT/HCPCS: 1NP; 1NSP; 36415; 36592; 71045; 74176; 81001; 82436; 87015; 87045; 87328; 87329; 87899; 87899-59; 93005; 93010; 97110-GO; 97112-GO; 97116-GO; 97161-GP; 97530-GO; J0360; J1644; J3490